=== PATIENT | female | born 1990 | race Caucasian/White ===

== ENCOUNTER 2019-05-02 13:46 | Outpatient (REF) | payer MEDICAID, SELFPAY ==
--- NOTE | 2019-05-02 11:30 | PAPFT_PTH ---
PATIENT: Raven Koehler LOC: [facility] U#:[id number] AGE/SX: 28/F ROOM: RE05/02/[address]: SABINA Holt : 1990 BED: DIS: 05/02/2019 SPEC #: [id number] RECD: 05/02/19 17:55 STATUS: ARIADNA RECrystal #: [id number] JODI: 05/02/19 11:[address]: Rosi Moreno DEPT: [facility] Cytology RECD BY: Tracie Kumar ENTERED: 05/02/19 17:55 SP TYPE: PAPFT AZUCENA DR: Gus Velasco Tissues: 1 - CX/ENDOCX FOR PAP SMEARS Procedures: PAP THIN PREP/UVM Screening HPV DNA PROBE Comments: [id number]
== END 2019-05-02 14:06 ==
LOC: LBN 13:46
PROVIDERS: PCP Internal Medicine; Visit Provider Nurse Practitioner Family
DX: Z12.4 Encounter for screening for malignant neoplasm of cervix (principal); Z11.51 Encounter for screening for human papillomavirus (HPV)
CPT/HCPCS: 88142; 87624

== ENCOUNTER 2020-09-24 12:15 | Emergency (ER) | payer MEDICAID, SELFPAY ==
[2020-09-24 12:21] VITALS: BP 139/78; PULSE 98; RESP 18; TEMP 36.2; O2SAT 98
--- NOTE | 2020-09-24 12:30 | DI.RAD_ITS ---
EXAM: XR LUMBAR SPINE COMPLETE CLINICAL HISTORY: Back Pain TECHNIQUE: COMPARISON: CR LUMBAR SPINE AP, LAT from 12/30/2014 FINDINGS: Five views were obtained. The intervertebral disc spaces are well maintained. Old defect of the ant erior superior aspect L5 is noted, no gross interval change appearance comparison with previous exami nation December 2014. There is no evidence of spondylolysis or spondylolisthesis. Note is again mad e of a mild left convex lumbar scoliosis. There are mild degenerative changes of the facet joints L4 -5 and L5-S1. There is no evidence of acute fracture. IMPRESSION: No evidence of acute fracture. RADIATION DOSE DELIVERED: Total DLP
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
[2020-09-24] MEDS: Cyclobenzaprine 10 MG TAB PO (13:05)
[2020-09-24] MEDS: Lidocaine 5% Patch 1 PATCH TP (13:06)
[2020-09-24 13:33] LABS: Bilirubin Negative (Negative); Blood Negative (Negative); Clarity Sl Cloudy (Clear); Glucose Negative (Negative); Ketones Negative (Negative); Leukocyte Esterase Negative (Negative); Nitrite Negative (Negative); Specific Gravity >= 1.030 (1.005-1.025); Urobilinogen 0.2 EU/dL (Up TO 0.2)
[2020-09-24 13:46] VITALS: BP 133/82; PULSE 74; RESP 18; O2SAT 100
--- NOTE | 2020-09-24 13:47 | NUR.NOTE ---
patient reportsn pain 8/10. back from DI Nursing Note:
[2020-09-24] MEDS: traMADol 50 MG TAB PO (14:02)
[2020-09-24 15:02] VITALS: PULSE 70; RESP 18; O2SAT 100
== END 2020-09-24 15:03 | disposition home or self-care (01) ==
PROVIDERS: Emergency Provider Registered Nurse Emergency; PCP Internal Medicine
DX: M54.5 Low back pain (principal)
CPT/HCPCS: 81025; 99283; 72110; 81003

== ENCOUNTER → 2022-03-26 00:07 | Outpatient (CLI) | payer MEDICAID, SELFPAY | PROVIDERS: PCP Internal Medicine; Visit Provider Physician Assistant ==

== ENCOUNTER 2022-11-28 18:49 | Emergency (ER) | payer MEDICAID, SELFPAY ==
--- NOTE | 2022-11-28 19:00 | RT.EKG_ITS ---
APPROVED REPORT Exam: Resting ECG Reason for Exam: chest pain Patient Location: E HR:65 bpm ECG Measurements Heart Rate 65 AXIS AR 143 P 55 QRSd 80 QRS 66 QT 380 T 60 QTc 397 Conclusion Sinus rhythm...normal P axis, V-rate 60- 99 Normal [place] Normal Electrocardiogram
[2022-11-28 19:01] VITALS: BP 119/77; PULSE 77; RESP 16; TEMP 36.4; O2SAT 100
[2022-11-28 19:20] VITALS: RESP 13
[2022-11-28 19:21] LABS: Bilirubin Small (Negative); Blood Negative (Negative); Clarity Clear (Clear); Glucose Negative (Negative); Ketones Trace mg/dL (Negative); Leukocyte Esterase Negative (Negative); Nitrite Negative (Negative); Specific Gravity >= 1.030 (1.005-1.025); Urobilinogen 0.2 EU/dL (Up TO 0.2)
[2022-11-28 19:28] LABS: Bacteria Few HPF (Negative); C & S Indicated? No; Casts 0-2 Hyaline LPF (Negative); Crystals Negative HPF (Negative); Epithelial Cells Moderate HPF (Negative); Mucus Negative (Negative); RBC Negative HPF (0-2); WBC Negative HPF (0-5)
--- NOTE | 2022-11-28 19:30 | DI.RAD_ITS ---
Exam(s) XR CHEST 2V PA LATERAL EXAM: XR CHEST 2V PA LATERAL CLINICAL HISTORY: chest pain TECHNIQUE: 2D digital imaging was performed of the chest. Two images were obtained. PA and lateral views were obtained. COMPARISON: No exams were available for comparison FINDINGS: MEDIASTINUM: Normal. HEART: Normal. PULMONARY VASCULATURE: Normal. LUNGS: Clear. PLEURAL SPACE: No pleural effusion or pneumothorax. BONE:Within normal limits for the patient's age. OTHER FINDINGS:Normal. IMPRESSION: No acute pulmonary findings. DATA REPOSITORY: RADIATION DOSE DELIVERED:
[2022-11-28 19:43] LABS: Abs Immature Grans 0.02 10^3/uL (0.0-0.06); Absolute Basophil Count 0.04 10^3/uL (0.0-0.2); Absolute Eosinophil Count 0.09 10^3/uL (0.0-0.7); Absolute Lymphocyte Count 2.32 10^3/uL (1.2-3.4); Absolute Monocyte Count 0.51 10^3/uL (0.1-0.8); Absolute Neutrophil Count 5.68 10^3/uL (1.2-6.7); Basophils % 0.5; HCT 41.5 % (36.0-46.0); HGB 13.7 g/dL (11.2-15.7); Immature Grans % 0.2; Lymphocytes % 26.8; MCV 91 fL (80-95); MPV 9.5 fL (8.0-11.0); Monocytes % 5.9; Neutrophils % 65.6; Platelet Count 215 10^3/uL (130-400); RBC 4.56 10^6/uL (3.93-5.22); RDW 12.2 % (11.7-14.6); RDW-SD 40.9 fL; WBC 8.66 10^3/uL (4.4-10.8)
[2022-11-28 20:01] LABS: ALT 21 U/L (14-59); AST 16 U/L (15-37); Albumin 4.5 g/dL (3.4-5.0); Alkaline Phosphatase 57 U/L (46-116); Anion Gap 5.5 mmol/L (3-11); BUN 16 mg/dL (7-18); Bilirubin, Total 0.5 mg/dL (0.2-1.0); CO2 29.5 mmol/L (21.0-32.0); CREATININE 0.9 mg/dL (0.55-1.02); Chloride 104 mmol/L (98-107); Estimated GFR 86.57 (mL/min/1.73m2); Glucose 110 mg/dL (74-106); Lipase 110 U/L (73-393); Potassium 3.6 mmol/L (3.5-5.1); Sodium 139 mmol/L (136-145); Total Protein 7.8 g/dL (6.4-8.2); Troponin I < 50 ng/L (<or=60)
[2022-11-28 20:12] LABS: D-Dimer 177 ng/mlFEU (<500)
[2022-11-28 20:58] VITALS: BP 105/57; PULSE 69; RESP 16; O2SAT 99
[2022-11-28 21:54] VITALS: BP 96/59; PULSE 55; RESP 16; O2SAT 97
--- NOTE | 2022-11-28 22:04 | DI.VRAD_ITS ---
PROCEDURE INFORMATION: Exam: XR Chest Exam date and time: 11/28/2022 20:23 Age: 31 years old Clinical indication: Chest wall pain; Additional info: Chest pain TECHNIQUE: Imaging protocol: Radiologic exam of the chest. Views: 2 views. COMPARISON: No relevant prior studies available. FINDINGS: Lungs: No consolidation. Pleural spaces: No pleural effusion. No pneumothorax. Heart/Mediastinum: No cardiomegaly. Bones/joints: No acute fracture. IMPRESSION: Normal. Dictated and Authenticated by: Morena Lester MD. Ordering:ADAL Hodges MD
[2022-11-28 22:07] LABS: Troponin I < 50 ng/L (<or=60)
[2022-11-28 22:28] VITALS: BP 107/61; RESP 18; TEMP 37; O2SAT 97
--- NOTE | 2022-11-30 09:50 | W.ED.GENAD ---
Discharge Plan Disposition Patient Disposition: Home Condition: Stable Discharge Details Clinical Impression: Chest pain Primary Care Provider: Gus Velasco ED Provider: Tracie Zelaya Home Meds and New Rx's Prescriptions: Continued medroxyprogesterone [Depo-Provera] 150 mg/mL syringe 150 mg IM ONCE Qty: 1 0RF medroxyprogesterone [Depo-Provera] 150 mg/mL suspension 150 mg IM Q12W Qty: 1 3RF Discharge Instructions Instructions: Chest Pain (ED) Additional Instructions: follow-up with primary care physician for follow-up next week Take ibuprofen and Tylenol as needed for pain Return earlier should you have new or worsening complaints Referrals: Gus Velasco MD [Primary Care Provider] - Discharge Data Discharge Date/Time-TO BE ENTERED AT DEPARTURE: 11/28/22 22:41 Medical Decision Making This 32-year-old female who is otherwise healthy with low risk for coronary artery disease will have a cardiac work-up to exclude any acute pathology Chest pain starting half an hour prior to arrival, will order 2 troponins, EKG, diagnostic labs Labs are consistent per patient, she is had 2 negative troponins with a heart score of 1 EKG does not show significant acute abnormality Pain-free at time of reassessment and discharge Pulmonary embolism rule out criteria negative, so will not order any additional imaging, chest x-ray per radiology interpretation my review does not show acute pathology Encouraged to follow-up with her primary care physician test negative No clinical evidence of pneumonia Return precautions reviewed and patient expressed understanding Medical Records Medical records reviewed: Yes I reviewed the patient's medical records. Lab Data Lab results reviewed: Yes I reviewed the patient's lab results. ECG Data Prior ECG tracings: available for review HPI General Date/Time Provider Initiated Documentation: 11/28/22 19:24. HPI Narrative: This otherwise healthy 32-year-old female presents with chest pain that started 30 minutes prior to arrival. States she has a history of anxiety with chest discomfort but this is slightly different. She states she felt like she might pass out. She was standing and baking a cake when her symptoms began. She states the pain is resolving. She denies any shortness of breath. Denies early cardiac family history, illicit drug use, regular alcohol consumption or chance of . She denies any exogenous hormones. She has known exacerbating or alleviating factors. She has not been ill and does not report cough or patient. Denies any sweating or nausea. Related Data Home Medications Medication Instructions Recorded Confirmed medroxyprogesterone 150 mg/mL 150 mg IM Q12W #1 mL 11/05/21 11/28/22 intramuscular suspension (Depo-Provera) Previous Rx's Medication Instructions Recorded medroxyprogesterone 150 mg/mL 150 mg IM Q12W #1 mL 11/05/21 intramuscular suspension (Depo-Provera) Allergies Allergy/AdvReac Type Severity Reaction Status Date / Time amoxicillin Allergy Intermediate Skin Rash Verified 11/28/22 19:06 Penicillins Allergy Intermediate rash with Verified 11/28/22 19:06 amoxicillin General Stated Complaint: Chest Pain CATARINO: 2 Review of Systems Narrative: Review of systems obtained x7 and negative aside from medication HPI PFSH All Active Problems Chest pain (Acute) Surveillance for Depo-Provera contraception (Acute) Contraception (Acute) Uses Depo-Provera as primary control method (Chronic) Medical History Contraception Uses Depo-Provera as primary control method Family History Brother Alcohol abuse Mother Substance abuse Alcohol abuse Father Substance abuse Diabetes Social History Smoking/Tobacco Use Status: Former Tobacco Use Smoking risk assessment performed?: Yes Alcohol Intake: former Drug use: Daily Substance use type: marijuana Current gender identity: female Do you feel safe at home: Yes Do you feel safe in your relationship?: Yes Female Reproductive History Menstrual control method: progesterone injection History History 2 Para Hx # Term Pregnancies 1 Multiple births Hx # Pregnancies Ectopic pregnancies AB induced Hx Number of Living Children AB spontaneous Exam Const General: cooperative, comfortable and no acute distress Chest Chest: normal inspection of the chest Resp Effort & Inspection: normal respiratory effort Auscultation: clear to auscultation bilaterally Cardio Rate: regular rate Rhythm: regular rhythm GI Other: No abdominal tenderness Course Vital Signs Vital signs: Vital Signs Temperature 36.4 C L 11/28/22 19:01 Pulse 77 11/28/22 19:01 Respiratory Rate 16 11/28/22 19:01 Blood Pressure 119/77 11/28/22 19:01 Pulse Oximetry 100 11/28/22 19:01 Temperature 37 C 11/28/22 22:28 Temperature Source Tympanic 11/28/22 22:28 Pulse 55 L 11/28/22 21:54 Respiratory Rate 18 11/28/22 22:28 Respiratory Effort 11/28/22 19:20 Respiratory Depth Normal 11/28/22 19:20 Respiratory Pattern Normal 11/28/22 19:20 Blood Pressure 107/61 11/28/22 22:28 Blood Pressure Position Sitting 11/28/22 19:01 Pulse Oximetry 97 11/28/22 22:28 Oxygen Delivery Method Room Air 11/28/22 22:28 Oxygen Flow Rate 0 11/28/22 22:28 Pain Level 1 11/28/22 19:20 Comment 11/28/22 21:54 Lab/Test Results Lab/Test Results: Laboratory Tests Range/Units 11/28/22 11/28/22 11/28/22 19:12 19:34 19:34 WBC (4.4-10.8) 10^3/uL 8.66 RBC (3.93-5.22) 10^6/uL 4.56 Hgb (11.2-15.7) g/dL 13.7 Hct (36.0-46.0) % 41.5 MCV (80-95) fL 91 MCH (27.0-33.0) pg 30.0 MCHC (32.0-36.0) % 33.0 RDW (11.7-14.6) % 12.2 Plt Count (130-400) 10^3/uL 215 MPV (8.0-11.0) fL 9.5 Immature Gran % 0.2 Neutrophils % 65.6 Lymphocytes % 26.8 Monocytes % 5.9 Eosinophils % 1.0 Basophils % 0.5 Nucleated RBC % (0.0-0.3) % 0.0 Absolute Neutrophils (1.2-6.7) 10^3/uL 5.68 Absolute Lymphocytes (1.2-3.4) 10^3/uL 2.32 Absolute Monocytes (0.1-0.8) 10^3/uL 0.51 Absolute Eosinophils (0.0-0.7) 10^3/uL 0.09 Absolute Basophils (0.0-0.2) 10^3/uL 0.04 D-Dimer (<500) ng/mlFEU Sodium (136-145) mmol/L 139 Potassium (3.5-5.1) mmol/L 3.6 Chloride (98-107) mmol/L 104 Carbon Dioxide (21.0-32.0) mmol/L 29.5 Anion Gap (3-11) mmol/L 5.5 BUN (7-18) mg/dL 16 Creatinine (0.55-1.02) mg/dL 0.9 Est GFR (CKD-EPI 2020) (mL/min/1.73m2) 86.57 Glucose (74-106) mg/dL 110 H Calcium (8.5-10.1) mg/dL 9.0 Total Bilirubin (0.2-1.0) mg/dL 0.5 AST (15-37) U/L 16 ALT (14-59) U/L 21 Alkaline Phosphatase (46-116) U/L 57 Troponin I (<or=60) ng/L < 50 Total Protein (6.4-8.2) g/dL 7.8 Albumin (3.4-5.0) g/dL 4.5 Lipase (73-393) U/L 110 Urine Color (Yellow) Yellow Urine Clarity (Clear) Clear Urine pH (5-8) 6.0 Ur Specific [place] (1.005-1.025) >= 1.030 H Urine Protein (Negative) mg/dL 30 H Urine Ketones (Negative) mg/dL Trace H Urine Blood (Negative) Negative Urine Nitrite (Negative) Negative Urine Bilirubin (Negative) Small H Urine Urobilinogen (Up TO 0.2) EU/dL 0.2 Ur Leukocyte Esterase (Negative) Negative Urine RBC (0-2) HPF Negative Urine WBC (0-5) HPF Negative Ur Epithelial Cells (Negative) HPF Moderate Urine Crystals (Negative) HPF Negative Urine Bacteria (Negative) HPF Few Urine Casts (Negative) LPF 0-2 Hyaline Urine Mucus (Negative) Negative Ur Culture Indicated? No Urine Glucose (Negative) mg/dL Negative Range/Units 11/28/22 11/28/22 19:34 21:42 WBC (4.4-10.8) 10^3/uL RBC (3.93-5.22) 10^6/uL Hgb (11.2-15.7) g/dL Hct (36.0-46.0) % MCV (80-95) fL MCH (27.0-33.0) pg MCHC (32.0-36.0) % RDW (11.7-14.6) % Plt Count (130-400) 10^3/uL MPV (8.0-11.0) fL Immature Gran % Neutrophils % Lymphocytes % Monocytes % Eosinophils % Basophils % Nucleated RBC % (0.0-0.3) % Absolute Neutrophils (1.2-6.7) 10^3/uL Absolute Lymphocytes (1.2-3.4) 10^3/uL Absolute Monocytes (0.1-0.8) 10^3/uL Absolute Eosinophils (0.0-0.7) 10^3/uL Absolute Basophils (0.0-0.2) 10^3/uL D-Dimer (<500) ng/mlFEU 177 Sodium (136-145) mmol/L Potassium (3.5-5.1) mmol/L Chloride (98-107) mmol/L Carbon Dioxide (21.0-32.0) mmol/L Anion Gap (3-11) mmol/L BUN (7-18) mg/dL Creatinine (0.55-1.02) mg/dL Est GFR (CKD-EPI 2020) (mL/min/1.73m2) Glucose (74-106) mg/dL Calcium (8.5-10.1) mg/dL Total Bilirubin (0.2-1.0) mg/dL AST (15-37) U/L ALT (14-59) U/L Alkaline Phosphatase (46-116) U/L Troponin I (<or=60) ng/L < 50 Total Protein (6.4-8.2) g/dL Albumin (3.4-5.0) g/dL Lipase (73-393) U/L Urine Color (Yellow) Urine Clarity (Clear) Urine pH (5-8) Ur Specific [place] (1.005-1.025) Urine Protein (Negative) mg/dL Urine Ketones (Negative) mg/dL Urine Blood (Negative) Urine Nitrite (Negative) Urine Bilirubin (Negative) Urine Urobilinogen (Up TO 0.2) EU/dL Ur Leukocyte Esterase (Negative) Urine RBC (0-2) HPF Urine WBC (0-5) HPF Ur Epithelial Cells (Negative) HPF Urine Crystals (Negative) HPF Urine Bacteria (Negative) HPF Urine Casts (Negative) LPF Urine Mucus (Negative) Ur Culture Indicated? Urine Glucose (Negative) mg/dL POC- Test(urine) Negative
== END 2022-11-28 22:41 | disposition home or self-care (01) ==
PROVIDERS: Emergency Provider Physician Assistant; PCP Internal Medicine
DX: R07.9 Chest pain, unspecified (principal)
CPT/HCPCS: 36415; 80053; 81025; 83690; 93005; 99284; 71046; 81003; 81015; 84484; 85025; 85379; 93010; 99285

== ENCOUNTER 2023-01-15 01:25 | Outpatient (CLI) | payer MEDICAID, SELFPAY ==
--- NOTE | 2023-01-15 14:25 | DI.MRI_ITS ---
Exam(s) MR LUMBAR SPINE WO EXAM: MR LUMBAR SPINE WO CLINICAL HISTORY: LUMBAR DISC HERNIATION M51.26 LOW BACK PAIN M54.59. TECHNIQUE: Multiplanar multisequence MRI of the Lumbar spine was performed. COMPARISON: MR MRI - LUMBAR SPINE WO CONTRAST from 03/16/2009 CR XR LUMBAR SPINE COMPLETE from 09/24/2020 FINDINGS: The examination is limited due to patient motion artifact. Bones: The last intervertebral disc space is designated the L5/S1 level for the numbering purpose of this examination. The vertebral body heights are well maintained. Alignment is satisfactory. The si gnal characteristics are unremarkable. Cord: The conus tip ends at the L1-L2 level. It is of normal size and signal intensity. T12-L1: No disc herniations or bulges are present. No central spinal canal or neural foraminal stenos is. L1-2: No disc herniations or bulges are present. No central spinal canal or neural foraminal stenosis . L2-3: No disc herniations or bulges are present. No central spinal canal or neural foraminal stenosis . L3-4: No disc herniations or bulges are present. No central spinal canal or neural foraminal stenosis . L4-5: There is a diffuse disc bulge. There are hypertrophic changes of the facets and ligamentum fla vum. No significant central spinal canal stenosis is seen. There is mild narrowing of the neural fo ramen bilaterally. L5-S1: There is a diffuse disc bulge. Degenerative changes of the facets and ligamentum flavum are p resent. There is mild to moderate central spinal canal stenosis. There is mild bilateral neural for aminal stenosis. Soft tissues: The visualized SI joints and sacrum are well maintained. The paraspinal soft tissues ar e unremarkable. IMPRESSION: 1. The examination is limited by patient motion artifact. 2. Degenerative changes at multiple levels of the lumbar spine. 3. The findings are most marked at L5-S1 where there is [id number] central spinal canal stenosi s and bilateral mild neural foraminal stenosis. DATA REPOSITORY:
== END 2023-01-15 01:45 ==
PROVIDERS: PCP Internal Medicine; Visit Provider Nurse Practitioner Family
DX: M51.26 Other intervertebral disc displacement, lumbar region (principal); M54.59 Other low back pain; M51.27 Other intervertebral disc displacement, lumbosacral region; M48.07 Spinal stenosis, lumbosacral region; M47.817 Spondylosis without myelopathy or radiculopathy, lumbosacral region
CPT/HCPCS: 72148

== ENCOUNTER 2023-03-05 18:17 | Outpatient (REF) | payer MEDICAID, SELFPAY ==
[2023-03-05 16:33] LABS: Vitamin D 25 Total 22.2 ng/mL (30-100)
[2023-03-05 17:42] LABS: TSH (W/Ref FT4) 1.02 uIU/mL (0.36-3.74); Vitamin B12 282 pg/mL (193-986)
== END 2023-03-05 18:18 | disposition home or self-care (01) ==
LOC: NCHCN 18:17
PROVIDERS: PCP Internal Medicine; Visit Provider Registered Nurse
DX: F41.8 Other specified anxiety disorders (principal); E55.9 Vitamin D deficiency, unspecified
CPT/HCPCS: 82306; 82607; 84443

== ENCOUNTER 2023-05-13 15:21 | Outpatient (REF) | payer MEDICAID, SELFPAY ==
[2023-05-13 17:10] LABS: Vitamin D 25 Total 37.6 ng/mL (30-100)
[2023-05-13 17:11] LABS: HCG Quant, Pregnancy 28319 mIU/mL (1-3)
[2023-05-13 17:14] LABS: Vitamin B12 308 pg/mL (193-986)
== END 2023-05-13 15:22 | disposition home or self-care (01) ==
LOC: NCHCN 15:21
PROVIDERS: Registered Nurse; PCP Internal Medicine; Visit Provider Nurse Practitioner Family
DX: F41.9 Anxiety disorder, unspecified (principal); N91.2 Amenorrhea, unspecified
CPT/HCPCS: 82306; 82607; 84443; 84702

== ENCOUNTER 2023-06-26 02:19 | Outpatient (CLI) | payer MEDICAID, SELFPAY ==
[2023-06-26 12:25] LABS: Panorama Kit Sent via Fed Ex
[2023-06-26 12:32] LABS: Abs Immature Grans 0.04 10^3/uL (0.0-0.06); Absolute Basophil Count 0.05 10^3/uL (0.0-0.2); Absolute Eosinophil Count 0.05 10^3/uL (0.0-0.7); Absolute Lymphocyte Count 1.58 10^3/uL (1.2-3.4); Absolute Monocyte Count 0.52 10^3/uL (0.1-0.8); Absolute Neutrophil Count 6.51 10^3/uL (1.2-6.7); Basophils % 0.6; Eosinophils % 0.6; HCT 35.2 % (36.0-46.0); HGB 12.3 g/dL (11.2-15.7); Immature Grans % 0.5; Lymphocytes % 18.1; MCH 31.6 pg (27.0-33.0); MCHC 34.9 % (32.0-36.0); MCV 91 fL (80-95); MPV 9.2 fL (8.0-11.0); Monocytes % 5.9; Neutrophils % 74.3; Platelet Count 240 10^3/uL (130-400); RBC 3.89 10^6/uL (3.93-5.22); RDW 13.9 % (11.7-14.6); RDW-SD 46.2 fL; WBC 8.75 10^3/uL (4.4-10.8)
[2023-06-26 14:06] LABS: TSH (W/Ref FT4) 2.15 uIU/mL (0.36-3.74)
[2023-06-28 10:35] LABS: HIV-1/2 Ag & Ab Screen Negative (Negative)
[2023-06-29 09:39] LABS: Hepatitis B Surface Ag Negative (Negative)
[2023-06-29 10:02] LABS: Hepatitis C Ab w Rflx HCV PCR Negative (Negative)
[2023-06-29 11:13] LABS: Varicella IgG Antibody Positive (See Note)
[2023-06-29 11:16] LABS: Rubella IgG Ab (UVM) Positive (See Note)
[2023-06-29 19:25] LABS: Syphilis IgG w/Reflex Nonreactive (Nonreactive)
== END 2023-06-26 02:20 | disposition home or self-care (01) ==
LOC: LBO 02:19
PROVIDERS: PCP Internal Medicine; Visit Provider Advanced Practice Midwife
DX: Z34.91 Encounter for supervision of normal pregnancy, unspecified, first trimester (principal); Z36.89 Encounter for other specified antenatal screening; Z3A.11 11 weeks gestation of pregnancy
CPT/HCPCS: 36415; 86787; 86803; 86850; 86900; 86901; 87340; 87389; 84443; 85025; 86762; 86780

== ENCOUNTER 2023-06-26 13:53 | Outpatient (REF) | payer MEDICAID, SELFPAY ==
--- NOTE | 2023-06-26 12:00 | PAPFT_PTH ---
PATIENT: Raven Koehler LOC: [facility] U#:[id number] AGE/SX: 32/F ROOM: RE06/26/[address]: Jeanie Siu : 1990 BED: DIS: 06/26/2023 SPEC #: [id number] RECD: 06/26/23 17:43 STATUS: ARIADNA RECrystal #: [id number] JODI: 06/26/23 12:[address]: Jeanie Siu DEPT: [facility] Cytology RECD BY: Tracie Kumar ENTERED: 06/26/23 17:43 SP TYPE: PAPFT OTHR DR: Gus Velasco Tissues: 1 - CX/ENDOCX FOR PAP SMEARS Procedures: PAP THIN PREP/UVM Screening HPV DNA PROBE Comments: [id number]
[2023-06-26 15:07] LABS: *AMPHETAMINES SCREEN URINE Negative (Negative); *BARBITURATES SCREEN URINE Negative (Negative); *BENZODIAZEPINES SCREEN URINE Negative (Negative); Cannabinoids THC Positive (Negative); Cocaine Screen,Urine Negative (Negative); METHADONE URINE SCREEN Negative (Negative); OPIATES URINE SCREEN Negative (Negative)
[2023-06-26 15:09] LABS: Tricyclic Antidepressants Negative (Negative)
[2023-06-27 13:30] LABS: Chlamydia Result Negative (Negative); GC Result Negative (Negative)
[2023-07-02 15:08] LABS: Buprenorphine Negative ng/mL (Cutoff: 5.0); Norbuprenorphine Negative ng/mL (Cutoff: 2.5)
== END 2023-06-26 13:54 | disposition home or self-care (01) ==
LOC: LBN 13:53
PROVIDERS: PCP Internal Medicine; Visit Provider Advanced Practice Midwife
DX: Z34.91 Encounter for supervision of normal pregnancy, unspecified, first trimester (principal); Z11.3 Encounter for screening for infections with a predominantly sexual mode of transmission; Z12.4 Encounter for screening for malignant neoplasm of cervix; Z3A.11 11 weeks gestation of pregnancy; Z11.51 Encounter for screening for human papillomavirus (HPV)
CPT/HCPCS: 80307; 80348; 87491; 87591; 88142; 87086; 87624

== ENCOUNTER 2023-07-24 02:05 | Outpatient (CLI) | payer MEDICAID, SELFPAY ==
[2023-07-27 12:22] LABS: AFP 23.2 ng/mL; Cigarette smoking status non-Smoker; GA used in risk estimate Scan estimate; IVF Pregnancy No; Initial or repeat testing Initial testing; Insulin dependent diabetes No; Maternal Weight 162 lbs; Number of Fetuses 1; Prev Pregnancy w/NTD No; RECOMMENDED FOLLOW UP None.; Results Summary Normal risk
== END 2023-07-24 02:06 | disposition home or self-care (01) ==
LOC: LBO 02:05
PROVIDERS: PCP Internal Medicine; Visit Provider Advanced Practice Midwife
DX: Z34.92 Encounter for supervision of normal pregnancy, unspecified, second trimester (principal); Z3A.15 15 weeks gestation of pregnancy; Z36.89 Encounter for other specified antenatal screening
CPT/HCPCS: 36415; 82105

== ENCOUNTER 2023-10-16 01:53 | Outpatient (CLI) | payer MEDICAID, SELFPAY ==
[2023-10-16 09:58] LABS: HCT 32.9 % (36.0-46.0); HGB 11.2 g/dL (11.2-15.7); MCH 31.9 pg (27.0-33.0); MCV 94 fL (80-95); MPV 9.3 fL (8.0-11.0); Platelet Count 227 10^3/uL (130-400); RBC 3.51 10^6/uL (3.93-5.22); RDW-SD 44.4 fL; WBC 8.63 10^3/uL (4.4-10.8)
[2023-10-16 10:13] LABS: Glucose,1 Hr (Glucola) 84 mg/dL (80-140)
== END 2023-10-16 01:54 | disposition home or self-care (01) ==
LOC: LBO 01:54
PROVIDERS: PCP Internal Medicine; Visit Provider Advanced Practice Midwife
DX: Z34.93 Encounter for supervision of normal pregnancy, unspecified, third trimester (principal)
CPT/HCPCS: 36415; 82950; 85027

== ENCOUNTER 2023-10-16 08:52 | Outpatient (REF) | payer MEDICAID, SELFPAY ==
[2023-10-16 11:20] LABS: *AMPHETAMINES SCREEN URINE Negative (Negative); *BARBITURATES SCREEN URINE Negative (Negative); *BENZODIAZEPINES SCREEN URINE Negative (Negative); Cannabinoids THC Negative (Negative); Cocaine Screen,Urine Negative (Negative); METHADONE URINE SCREEN Negative (Negative); OPIATES URINE SCREEN Negative (Negative)
[2023-10-16 11:21] LABS: Tricyclic Antidepressants Negative (Negative)
== END 2023-10-16 08:53 | disposition home or self-care (01) ==
LOC: LBN 08:52
PROVIDERS: PCP Internal Medicine; Visit Provider Advanced Practice Midwife
DX: F12.90 Cannabis use, unspecified, uncomplicated (principal); O99.323 Drug use complicating pregnancy, third trimester
CPT/HCPCS: 80307

== ENCOUNTER → 2023-10-30 00:19 | Outpatient (CLI) | payer MEDICAID, SELFPAY ==
--- NOTE | 2023-10-30 08:00 | DI.US_ITS ---
Exam(s) US OB SIM WEIGHT EXAM: US OB SIM WEIGHT CLINICAL HISTORY: interval growth. TECHNIQUE: Transabdominal and transvaginal obstetrical ultrasound performed. COMPARISON: US US OB DETAILED MORPHOLOGY from 08/27/2023 FINDINGS:: Number of fetuses: One. position: Vertex. Placental location: Anterior no evidence of previa. BIOMETRIC DATA: BPD: 81mm = 32+3 weeks HC: 295mm = 32+4 weeks AC: 267mm = 30+5 weeks FL: 60 mm = 31+2 weeks EFW: Is 1729 Gms = 84% Composite Age: 31+5 weeks RAS: 27 December 2023 Heart Rate: 161BPM Amniotic fluid index: 14.3 cm. Amount of fluid is visually within normal limits. Transvaginal imaging performed for evaluation of cervical length. Cervical length measured 2.6 cm. IMPRESSION: size and weight are within the expected range. Stable cervical length 2.6 cm DATA REPOSITORY:
== END ==
PROVIDERS: PCP Internal Medicine; Visit Provider Advanced Practice Midwife
DX: Z3A.32 32 weeks gestation of pregnancy; O44.43 Low lying placenta NOS or without hemorrhage, third trimester
CPT/HCPCS: 76816

== ENCOUNTER 2023-12-15 11:43 | Outpatient (REF) | payer MEDICAID, SELFPAY ==
[2023-12-15 15:35] LABS: COMMENT (LAB VIEW ONLY) 169.02 mg/dL; PROTEIN 26.2 mg/dL; Prot/Crea Ur Ratio 0.15
[2023-12-15 15:42] LABS: *AMPHETAMINES SCREEN URINE Negative (Negative); *BARBITURATES SCREEN URINE Negative (Negative); *BENZODIAZEPINES SCREEN URINE Negative (Negative); Cannabinoids THC Negative (Negative); Cocaine Screen,Urine Negative (Negative); METHADONE URINE SCREEN Negative (Negative); OPIATES URINE SCREEN Negative (Negative)
[2023-12-15 15:43] LABS: Tricyclic Antidepressants Negative (Negative)
[2023-12-18 11:06] LABS: Misc Referral (UVM) See Comments
[2023-12-22 11:39] LABS: Buprenorphine Negative ng/mL (Cutoff: 5.0)
== END 2023-12-15 11:44 | disposition home or self-care (01) ==
LOC: LBN 11:43
PROVIDERS: Visit Provider Advanced Practice Midwife
DX: F12.90 Cannabis use, unspecified, uncomplicated (principal); Z34.93 Encounter for supervision of normal pregnancy, unspecified, third trimester
CPT/HCPCS: 80307; 80348; 80354; 82565; 84156; 87081

== ENCOUNTER 2023-12-20 09:09 | Outpatient (CLI) | payer MEDICAID, SELFPAY ==
[2023-12-20 09:26] VITALS: BP 130/81; PULSE 78; TEMP 36.8
[2023-12-20 09:30] VITALS: BP 130/81; PULSE 78
--- NOTE | 2023-12-21 07:31 | W.OBNST ---
Date of service: 12/20/23 Time of Service: 11:00 NST Evaluation Reason for NST Reasons for Nonstress Test: OTHER, SEE COMMENT Reason for NST Other: Rule out SROM Gestational Age Gestational Age in Weeks and Days: 37 Weeks and 1Days Test and Monitor Explained Test/Monitor Explained: Test Explained and Monitor Explained Vital Signs Blood Pressure: 130/81 Pulse: 78 Temperature: 98.2 F Urine Results Urine Protein: Negative Urine Ketones: Negative Urine Glucose: Negative Urine Blood: Negative NST Information Date on Monitor: 12/20/23 Time on Monitor: 09:24 Date off Monitor: 12/20/23 Time off Monitor: 09:46 Total Time on Monitor: 22 NST Interventions: PO Hydration NST Evaluation Patient States Movement: Present FHR Baseline: 145 Variability: Moderate 6-25 bpm Accelerations: 15x15 Decelerations: None NST Results: Reactive Note Ultrasound Done: N/A. NST Note Note: SSE performed, neg pooling, neg ferns Cvx 3/80% soft, posterior, vtx -2 Discharged to home NST Reviewed and Verified by: Renetta Bolton
[2023-12-21 07:32] VITALS: BP 130/81; PULSE 78; TEMP 36.8
[2023-12-21 16:20] VITALS: BP 104/61; PULSE 112
== END 2023-12-20 10:03 | disposition home or self-care (01) ==
LOC: BCD 09:10 → OBS 09:19
PROVIDERS: Visit Provider Advanced Practice Midwife
DX: O47.1 False labor at or after 37 completed weeks of gestation (principal); Z3A.37 37 weeks gestation of pregnancy
CPT/HCPCS: 59025

== ENCOUNTER 2023-12-25 00:19 | Inpatient (IN) | payer MEDICAID, SELFPAY ==
[2023-12-25] VITALS (18 sets, daily range): BP systolic 108–148; BP diastolic 60–83; PULSE 62–101; RESP 15–17; TEMP 36.5–37.1; O2SAT 97–99
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
[2023-12-25 01:46] LABS: HCT 30.3 % (36.0-46.0); HGB 10.6 g/dL (11.2-15.7); MCH 31.8 pg (27.0-33.0); MCV 91 fL (80-95); MPV 9.4 fL (8.0-11.0); Platelet Count 244 10^3/uL (130-400); RBC 3.33 10^6/uL (3.93-5.22); RDW 12.7 % (11.7-14.6); RDW-SD 41.6 fL; WBC 11.21 10^3/uL (4.4-10.8)
[2023-12-25] MEDS: Oxytocin 10 UNITS/ML VIAL IM (03:21)
--- NOTE | 2023-12-25 03:40 | OBVDS_ITS ---
Date of service: 12/25/23 Time of Service: 03:40 OB Labor/ Delivery Information Baby A Delivery Delivery Method: Spontaneaous Presentation: Cephalic Cephalic Position: Vertex Vertex Position: Left Occipital Anterior Cord Description-Baby A: 3 Vessels Amniotic Fluid: Clear Estimated Blood Loss: 250 ml Delivery Outcome: Liveborn Infant Transferred: Remains with Mother Note: Pt labored using nitrous effectively, intermittent doptone FHT checks per guidelines with reassuring findings, SROM of clear fluid, involuntary urges to bear down soon followed while pt lying RLP on the bed. She turned to her left side and 2nd stage huddle was completed, shortly thereafter of a vigorous female over intact perineum, shoulders delivered with ease, bulb suction on field until pt was ready to hold her baby, infant to chest for S2S, 10 units pitocin given IM, cord ceased pulsations and was clamped then cut by FOB @ 6 minutes, cord blood collected, Ye placenta delivered intact with 3 VC, fundus firm below umbilicus, vulval and vaginal inspection revealed no lacerations, vaginal sweep for no clots and minimal lochia. Strong family bonding observed, apgars 9/9, weight 3445 gms. Providers Nurse Percussion Teacher: Renetta Bolton Nurse: Halley Bolton Nurse: Celi Ventura Labor/Delivery Information Number of Babies in Womb: 1 Steroids Given: None Reason Steroids Not Administered: N/A Group Beta Strep: Negative Rubella Status: Immune Blood Type: O+ Varicella Immunity: Immune Shoulder Dystocia: No Stages of Labor Onset of Labor Date: 12/24/23 Onset of Labor Time: 22:15 ROM Baby A: 12/25/23 ROM Baby A: 02:00 ROM Total Time- Baby A: [id number] Delivery Date-Baby A: 12/25/23 Delivery Time-Baby A: 03:19 Placenta Delivery Date-Baby A: 12/25/23 Placenta Delivery Time-Baby A: 03:29 Labor-Stage 3 Duration: 10 minutes Total Length of Labor-Baby A: 5 hours and 4 minutes Placenta Cultured: No Placenta Status: Delivered Baby A Infant Gender: Female Gestational Status: Early Term (37-38.6 wks) Gestational Age in Weeks/Days: 37 Weeks and 6 Days weight: 7 lb 9.519 oz Weight Comment: 3445 gms Score-1 Minute Interval(Baby A) Heart Rate-1 minute: 100 BPM or Greater Respiratory Effort- 1 minute: Spontaneous/Strong Cry Muscle Tone-1 minute: Active Movement Reflex Response-1 minute: Prompt Response Color-1 minute: Bluish Hands or Feet Total Score-1 minute: 9 Score-5 Minute Interval(Baby A) Heart Rate- 5 minute: 100 BPM or Greater Respiratory Effort-5 minute: Spontaneous/Strong Cry Muscle Tone-5 minute: Active Movement Reflex Response-5 minute: Prompt Response Color-5 minute: Bluish Hands or Feet Total Score- 5 minute: 9
[2023-12-25] MEDS: Acetaminophen 325 MG TAB 650 MG PO ×4 (04:43→21:15)
[2023-12-25] MEDS: Hamamelis Leaf/Glycerin 100 EACH BOX PR (04:43)
[2023-12-25] MEDS: Ibuprofen 600 MG TAB PO ×3 (04:43→21:15)
[2023-12-25] MEDS: Dibucaine 1% 28 GM TUBE TP (04:44)
[2023-12-25] MEDS: Docusate Sodium 100 MG CAP PO (08:04)
[2023-12-25] MEDS: oxyCODONE 5 MG TAB PO ×3 (08:13→21:15)
[2023-12-26] MEDS: Acetaminophen 325 MG TAB 650 MG PO (06:58)
[2023-12-26] MEDS: oxyCODONE 5 MG TAB PO (06:58)
[2023-12-26] MEDS: Ibuprofen 600 MG TAB PO (06:59)
[2023-12-26 08:05] VITALS: BP 126/78; PULSE 84; RESP 15; TEMP 36.6; O2SAT 100
--- NOTE | 2023-12-26 09:49 | W.PM.OBDISCH ---
Date of service: 12/26/23 Time of Service: 09:49 DS: Diagnosis Discharge Diagnosis (1) care following vaginal delivery: Status: Acute Asessment and Plan: 1. Normal labor, vaginal delivery and course to date. 2. Reviewed PP warning signs and when/how to call CNM ribbon cleaner. 3. Discussed PP depression and will give educational information 4. Planning Depo Provera for contraception, will plan at 4-6 weeks PP 5. Will call to make 2 and 6 week PP visits. (2) Lactating mother: Status: Acute Asessment and Plan: 1. Breast feeding initiated, some right sided nipple tenderness will see LC prior to discharge 2. Reviewed signs of mastitis and when to call. 3. RTO 2 and 6 weeks PP and keep pediatric appointments as scheduled. Discharge Plan Disposition Patient Disposition: Home Condition: Good Discharge Details Reason For Visit: Term Labor Admit Date/Time: 12/25/23 00:19 Admit Provider: Renetta Bolton Attending Provider: Renetta Bolton Primary Care Provider: Unknown,Unknown Hospital Course Hospital Course: Normal labor, vaginal delivery and course. Breast feeding well. Planning Depo Provera for control. Home Meds and New Rx's Prescriptions: New ibuprofen 600 mg Tablet 600 mg PO Q6H PRN PRNQty: 60 0RF Continued Classic 28 mg iron- 800 mcg tablet PO QDAY Discharge Instructions Instructions: Ibuprofen (By mouth), Medroxyprogesterone (By injection), Depression (GEN) Stand Alone Forms: BC Instructions, BC Post Vaginal Deliver Activity:: Activity as Tolerated Equipment/Supplies:: No Equipment Needed Diet:: As Tolerated Discharge Orders Discharge Orders: Discharge Order (Routine); Ordered 12/26/23 Ordered By: Jeanie Weinstein OB:DS Summary Summary Vaginal Delivery Method: Spontaneaous Laceration Description: None Contraception Discussed Contraception Discussed: Yes Contraceptive Plan: Medroxyprogesterone (4-6 weeks PP), Infant Gender-Baby A: Female weight: 7 lb 9.519 oz Disposition of Baby A: Home Status at Discharge Functional status at discharge: independent ambulation Overall status at discharge: patient is back to baseline Mental Status: mental status grossly normal Speech and Movement: speech and movement normal Mood: congruent mood Affect: normal affect Time Spent with Patient providing and/or coordinating discharge services: Less than 30 minutes Quality:SDCA Health Related Social Needs: Health related social needs details none Health related social needs details: none Referrals and interventions: none Exam Physical Exam Vital signs: Temp Pulse Resp BP Pulse Ox 98.8 F 73 17 121/61 99 12/25/23 14:52 12/25/23 23:46 12/25/23 23:46 12/25/23 23:46 12/25/23 23:46 Vital Signs Reviewed: Yes Constitutional Constitutional: no acute distress, average body habitus and cooperative HEENT Exam HEENT Exam: Normal Neck Exam Neck Exam: Normal (normal visual inspection) Respiratory Exam Respiratory Exam: Normal Cardiovascular Exam Cardiovascular Exam: Normal Abdominal Exam Abdomen: Other (normal exam) Fundal Exam Fundus: Below Umbilicus and Firm Comment: small lochia noted. KH Rectal Exam Rectal Exam: Not Done Exam Perineum: Intact and Normal Extremities Exam Extremity Exam: Normal (denies calf tenderness) and Full ROM Back/Spine/Pelvis Exam Back Exam: Normal Skin Exam Skin Exam: Normal Neurological Exam Neurological Exam: Normal Psychiatric Exam Psychiatric Exam: Normal PFSH All Active Problems Lactating mother (Acute) care following vaginal delivery (Acute) Depression (Chronic) Anxiety (Chronic) Herniated lumbar intervertebral disc (Acute) L5-S1 Advanced maternal age (AMA) in (Acute) Chronic back pain (Acute) Medical History 37 weeks gestation of Marijuana smoker Chronic pain Short cervical length during Low lying placenta nos or without hemorrhage, second trimester Surveillance for Depo-Provera contraception Contraception Uses Depo-Provera as primary control method History of delivery Family History Brother Alcohol abuse Mother Substance abuse Alcohol abuse Father Substance abuse Diabetes Stroke Paternal Grandmother Stroke Paternal Aunt No problems noted. Paternal Grandfather Heart disease congestive heart failure Social History Smoking/Tobacco Use Status: Former Tobacco Use Smoking risk assessment performed?: Yes Alcohol Intake: former Drug use: Daily Substance use type: marijuana Details: none Housing: house Current gender identity: female Do you feel safe at home: Yes Do you feel safe in your relationship?: Yes Additional Social history: none Female Reproductive History Menstrual control method: progesterone injection History History 2 Para 1 Hx # Term Pregnancies 0 Multiple births 0 Hx # Pregnancies 1 Ectopic pregnancies 0 AB induced 0 Hx Number of Living Children 1 AB spontaneous 0 Past Pregnancies Del. Date GA/Weeks # Preg Succ Route Wgt Sex Labor Lgth Anesthesia Location Prov Complic 10/19/16 31 Yes vaginal 4 lb 8 oz Male 5 hours local [facility] [place] Delivery Date: 10/19/16 Last Updated by: Jeanie Siu CNM PPROM at 31 weeks 5 days, Roberto Carlos freitas DS: Data Vitals/I&O Vitals and I&O: Vital Signs Temperature 98.8 F 12/25/23 14:52 Temperature Source Tympanic 12/25/23 14:52 Pulse 73 12/25/23 23:46 Pulse Rhythm Regular 12/25/23 21:46 Respiratory Rate 17 12/25/23 23:46 Respiratory Depth Normal 12/25/23 21:46 Blood Pressure 121/61 12/25/23 23:46 Blood Pressure Mean 81 12/25/23 23:46 Pulse Oximetry 99 12/25/23 23:46 Oxygen Delivery Method Room Air 12/25/23 00:57 Oxygen Flow Rate 0 12/25/23 00:57 Pain Level 6 12/25/23 14:42 Comment Patient states that she is in 7/10 pain while . RN and CNM aware. 12/25/23 07:30 Intake & Output 12/25/23 12/25/23 12/26/23 11:59 23:59 11:59 Intake Total 360 / 360 Output Total 1500 / 2400 900 / 2400 Balance -1140 / -2040 -900 / -2040 Weight 201 lb Intake: Oral 360 / 360 Output: Urine 1500 / 2400 900 / 2400 Other: Urine Color Yellow Yellow Bright Red Comment Patient up to toilet. Voiding Methods Toilet
== END 2023-12-26 14:35 | disposition home or self-care (01) | DRG 807 ==
PROVIDERS: Admitting Provider Advanced Practice Midwife; Visit Provider Advanced Practice Midwife
DX: O75.89 Other specified complications of labor and delivery (principal); Z37.0 Single live birth; O99.324 Drug use complicating childbirth; Z3A.37 37 weeks gestation of pregnancy; G89.29 Other chronic pain; M54.9 Dorsalgia, unspecified; M51.27 Other intervertebral disc displacement, lumbosacral region; O99.344 Other mental disorders complicating childbirth; F41.8 Other specified anxiety disorders; F12.91 Cannabis use, unspecified, in remission
CPT/HCPCS: 36415; 85027; 86850; 86900; 86901; J2590

== ENCOUNTER 2024-02-14 07:29 | Emergency (ER) | payer MEDICAID, SELFPAY ==
[2024-02-14 07:34] VITALS: BP 118/81; PULSE 116; RESP 16; TEMP 37.1; O2SAT 95
[2024-02-14 07:40] VITALS: BP 118/81; PULSE 116; RESP 16; TEMP 37.1; O2SAT 95
--- NOTE | 2024-02-14 07:43 | W.ED.GENAD ---
Discharge Plan Disposition Patient Disposition: Home Discharge Details Clinical Impression: Pharyngitis Primary Care Provider: Unknown,Unknown ED Provider: Julio Henriquez Home Meds and New Rx's Prescriptions: Continued dextroamphetamine-amphetamine [Adderall] 20 mg tablet 20 mg PO DAILY oxycodone 10 mg tablet 10 mg PO ONCE PRN ibuprofen 600 mg Tablet 600 mg PO Q6H PRN PRNQty: 60 0RF Discharge Instructions Instructions: Pharyngitis (ED) Additional Instructions: You are seen in the emergency department for your sore throat. Please make sure you stay hydrated. Please return to the emergency department if you develop nausea or vomiting or do not urinate at least once every 8 hours while awake. Please follow-up as needed with your primary care provider next week. HPI General Date/Time Provider Initiated Documentation: 02/14/24 07:42. HPI Narrative: MDM This is an overall very well-appearing normothermic and mildly tachycardic 33-year-old recently female with pharyngitis reassuring against dangerous etiologies based on history and physical exam. Patient did have a strep swab performed by nursing which fortunately was negative. Given her low Centor score no indication for strep swab. I considered COVID however in the absence of fevers and cough I did not COVID swab. Good range of motion in neck so doubt retropharyngeal abscess. Uvula midline so doubt peritonsillar abscess. No nuchal rigidity to suggest meningitis. No cough nor shortness of breath to suggest pneumonia. No chest pain to suggest PE. I also considered spontaneous coronary artery dissection given the patient's status however she denies chest pain and her tachycardia resolved without intervention so I did not obtain ECG nor check a troponin. Nontoxic-appearing so doubt bacterial tracheitis. Handling secretions so doubt epiglottitis. Patient and I discussed return to the ED for decreased urine output only specifically discussed return to the ED for less than 1 episode of urination every 8 hours while awake. We also discussed return to the ED for any fevers or any headache. Given her reassuring blood pressure and lack of headache I was not concerned for preeclampsia. Patient was discharged with empiric trial of expectant outpatient management. Patient was offered acetaminophen but declined. HPI This is a 33-year-old recently female arrived to the emergency department with her son in the setting of sore throat. Patient's son developed a sore throat yesterday evening. Patient reports a scratchy throat and is concerned that she may also have strep as her son had strep last month. She is due to [place]. She has no fevers no chest pain no shortness of breath. No vomiting. No dysuria nor frequency. No headache. She has been urinating normally. She has no abdominal pain. She is no longer breast-feeding. Exam General: Well-appearing in no acute distress speaking in complete sentences. Head: Normocephalic, atraumatic. Eye: Extraocular eye movements intact. No conjunctival injection. No scleral icterus. Ear, nose, mouth, throat: Grossly normal inspection. Normal voice, handling secretions normally. Uvula midline. No significant posterior oropharynx erythema. Good range of motion in neck. No cervical lymphadenopathy. Neck: Trachea midline. Cardiovascular: Well-perfused distal extremities. Respiratory: Nonlabored respiration. Gastrointestinal: Nondistended abdomen. Musculoskeletal: No edema. Moving all 4 extremities spontaneously. Skin: Normal for age and race, grossly normal temperature and turgor. No acute rash. Neurologic: Alert and appropriate, no apparent acute deficits. Psychiatric: Mood and manner are appropriate. Grooming and personal hygiene are appropriate. Related Data Home Medications Medication Instructions Recorded Confirmed ibuprofen 600 mg tablet 600 mg PO Q6H PRN PRN #60 tabs 12/26/23 02/14/24 dextroamphetamine-amphetamine 20 20 mg PO DAILY 02/14/24 02/14/24 mg tablet (Adderall) oxycodone 10 mg tablet 10 mg PO ONCE PRN 02/14/24 02/14/24 Previous Rx's Medication Instructions Recorded ibuprofen 600 mg tablet 600 mg PO Q6H PRN PRN #60 tabs 12/26/23 Allergies Allergy/AdvReac Type Severity Reaction Status Date / Time amoxicillin Allergy Intermediate Skin Rash Verified 02/14/24 07:41 Penicillins Allergy Intermediate rash with Verified 02/14/24 07:41 amoxicillin General Stated Complaint: Sorethroat CATARINO: 4 Course Vital Signs Vital signs: Vital Signs Temperature 37.1 C 02/14/24 07:34 Pulse 116 H 02/14/24 07:34 Respiratory Rate 16 02/14/24 07:34 Blood Pressure 118/81 02/14/24 07:34 Pulse Oximetry 95 02/14/24 07:34 Temperature 37.1 C 02/14/24 07:40 Temperature Source Skin 02/14/24 07:40 Pulse 116 H 02/14/24 07:40 Respiratory Rate 16 02/14/24 07:40 Respiratory Effort Normal 02/14/24 07:40 Blood Pressure 118/81 02/14/24 07:40 Blood Pressure Position Sitting 02/14/24 07:40 Pulse Oximetry 95 02/14/24 07:40 Oxygen Delivery Method Room Air 02/14/24 07:40 Oxygen Flow Rate 0 02/14/24 07:40 Pain Level 0 02/14/24 07:40 Medical Decision Making Quality:SDOH Health Related Social Needs: Health related social needs details none PFSH All Active Problems (Updated 02/14/24 @ 08:10 by Julio Henriquez MD) Pharyngitis (Acute) Lactating mother (Acute) care following vaginal delivery (Acute) Depression (Chronic) Anxiety (Chronic) Herniated lumbar intervertebral disc (Acute) L5-S1 Advanced maternal age (AMA) in (Acute) Chronic back pain (Acute) Medical History 37 weeks gestation of Marijuana smoker Chronic pain Short cervical length during Low lying placenta nos or without hemorrhage, second trimester Surveillance for Depo-Provera contraception Contraception Uses Depo-Provera as primary control method History of delivery Family History Brother Alcohol abuse Mother Substance abuse Alcohol abuse Father Substance abuse Diabetes Stroke Paternal Grandmother Stroke Paternal Aunt No problems noted. Paternal Grandfather Heart disease congestive heart failure Social History Smoking/Tobacco Use Status: Former Tobacco Use Smoking risk assessment performed?: Yes Alcohol Intake: former Drug use: Daily Substance use type: marijuana Details: none Housing: house Current gender identity: female Do you feel safe at home: Yes Do you feel safe in your relationship?: Yes Additional Social history: none Female Reproductive History Menstrual control method: progesterone injection History History 2 Para 2 Hx # Term Pregnancies 1 Multiple births 0 Hx # Pregnancies 1 Ectopic pregnancies 0 AB induced 0 Hx Number of Living Children 2 AB spontaneous 0 Past Pregnancies Del. Date GA/Weeks # Preg Succ Route Wgt Sex Labor Lgth Anesthesia Location Prov Complic 10/19/16 31 Yes vaginal 2041.166 g [place] [facility] [place]23 37 No Yes vaginal 3444.467 g Female 5hrs 4min regional [facility] [place] Delivery Date: 10/19/16 Last Updated by: Jeanie Siu CNM PPROM at 31 weeks 5 days, autism, Roberto Carlos
[2024-02-14 08:03] VITALS: PULSE 77; O2SAT 97
== END 2024-02-14 08:26 | disposition home or self-care (01) ==
PROVIDERS: Emergency Provider Emergency Medicine
DX: J02.9 Acute pharyngitis, unspecified (principal); Z87.891 Personal history of nicotine dependence
CPT/HCPCS: 87880; 99283

== ENCOUNTER 2024-12-20 19:11 | Emergency (ER) | payer MEDICAID, SELFPAY ==
[2024-12-20] VITALS (8 sets, daily range): BP systolic 100–149; BP diastolic 56–70; PULSE 92–112; RESP 22–26; TEMP 37.8; O2SAT 95–97
--- NOTE | 2024-12-20 19:15 | RT.EKG_ITS ---
APPROVED REPORT Exam: Resting ECG Reason for Exam: cc Patient Location: E HR:99 bpm ECG Measurements Heart Rate 99 AXIS NV 146 P 52 QRSd 84 QRS 64 QT 359 T 87 QTc 462 Conclusion Sinus rhythm...normal P axis, V-rate 60- 99 Consider left ventricular hypertrophy...(S V1+R V5/V6) >3.25mV There are no significant changes compared to prior EKG performed on 11/28/2022 at 19:02.
--- NOTE | 2024-12-20 19:34 | W.ED.GENAD ---
Discharge Plan Disposition Patient Disposition: Home Condition: Stable Discharge Details Clinical Impression: Streptococcal sore throat, Right upper lobe pneumonia Primary Care Provider: Unknown,Unknown ED Provider: Louisa Ackerman Home Meds and New Rx's Prescriptions: New benzonatate 100 mg capsule 100 mg PO BID-TID PRN (Reason: cough) Qty: 10 0RF Rx Instructions: Take 1 capsule up to 2-3 times daily as needed for cough doxycycline hyclate 100 mg tablet 100 mg PO BID 10 Days Qty: 20 0RF cephalexin 500 mg tablet 500 mg PO BID 10 Days Qty: 20 0RF No Action dextroamphetamine-amphetamine [Adderall] 20 mg tablet 20 mg PO DAILY oxycodone 10 mg tablet 10 mg PO ONCE PRN ibuprofen 600 mg Tablet 600 mg PO Q6H PRN PRNQty: 60 0RF Discharge Instructions Instructions: Atypical Pneumonia (Mycoplasma and Viral) (DC), Strep Throat ED Additional Instructions: At this time you have tested positive for strep throat and it appears you have an atypical pneumonia on the chest x-ray. You are also very dehydrated. Please take the nausea medication 20 to 30 minutes before eating or drinking anything. Please increase oral fluids. Take the antibiotic with yogurt or probiotic as directed. Gargle with warm salt water up to 3 times daily. Follow up with primary care provider in 3-5 days. Return to ED sooner if any worsening or concerns. Please take Tylenol or Ibuprofen with food every 4-6 hours as needed for pain, fever and swelling. You may alternate the 2 take Tylenol and then a couple hours later take ibuprofen. Referrals: Primary Care Provider [Outside] - 3 days HPI General Mode of arrival: ambulatory. Date/Time Provider Initiated Documentation: 12/20/24 19:32. Limitations to Documentation: no limitations. Information obtained by: patient, RN notes reviewed and old records reviewed. HPI Narrative: 34-year-old female presents to the ER with a chief complaint of headache, chest pain cough hemoptysis. She also reports nausea vomiting. She did take Tylenol few hours ago. She is only tachycardic at a heart rate of 101 temp 37.8 lying down in the waiting room floor. She does have erythemic posterior oropharynx, lungs are clear to auscultation bilaterally. Abdomen is soft nontender with palpation. She does not have a history of any abdominal surgeries. She denies any possibility of however she is not on control. Her family is here with her at the bedside and are providing most of the history. Past medical history includes marijuana smoker, . Related Data Home Medications ?Medication ?Instructions ?Recorded ?Confirmed ibuprofen 600 mg tablet 600 mg PO Q6H PRN PRN #60 tabs 12/26/23 12/20/24 dextroamphetamine-amphetamine 20 20 mg PO DAILY 02/14/24 12/20/24 mg tablet (Adderall) oxycodone 10 mg tablet 10 mg PO ONCE PRN 02/14/24 12/20/24 benzonatate 100 mg capsule 100 mg PO BID-TID PRN cough #10 12/20/24 caps cephalexin 500 mg tablet 500 mg PO BID 10 days #20 tabs 12/20/24 doxycycline hyclate 100 mg tablet 100 mg PO BID 10 days #20 tabs 12/20/24 Previous Rx's ?Medication ?Instructions ?Recorded ibuprofen 600 mg tablet 600 mg PO Q6H PRN PRN #60 tabs 12/26/23 benzonatate 100 mg capsule 100 mg PO BID-TID PRN cough #10 12/20/24 caps cephalexin 500 mg tablet 500 mg PO BID 10 days #20 tabs 12/20/24 doxycycline hyclate 100 mg tablet 100 mg PO BID 10 days #20 tabs 12/20/24 Allergies Allergy/AdvReac Type Severity Reaction Status Date / Time amoxicillin Allergy Intermediate Skin Rash Verified 12/20/24 19:20 Penicillins Allergy Intermediate rash with Verified 12/20/24 19:20 amoxicillin General Stated Complaint: RespSymp CATARINO: 3 Review of Systems All systems reviewed & are unremarkable except as noted in HPI and below Constitutional Constitutional: Reports as per HPI, Reports body ache(s), Reports fever(s) and Reports lethargy ENT Ears, Nose, Mouth, and Throat: Denies otalgia and Reports sore throat Respiratory Respiratory: Reports chest congestion, Reports cough and Reports hemoptysis Gastrointestinal Gastrointestinal: Reports abdominal pain, Reports diarrhea, Reports nausea and Reports vomiting Exam Narrative Exam Narrative: Constitutional: Alert and oriented x3. Appears stated age. Normal body habitus. Head: Normocephalic, no trauma. Eyes: Pupils PERRL, Red reflex noted, EOM's intact. Eyelids symmetrical without lesions, discharge, or swelling. ENT: Bilateral TM's WNL, External ear normal to inspection, no mastoid TTP, swelling, or erythema, Nasal turbinates WNL, no nasal discharge. Normal dentition, Posterior pharynx erythemic tonsils 2+ bilaterally, no exudate. Chest: RRR, Normal S1, S2, distal pulses intact. Resp: Lungs clear to auscultation bilaterally, no wheezes, rales, or rhonchi. Abdomen: Soft, non-distended, Normoactive bowel sounds all 4 quads. Musculoskeletal: Normal gait, Moves all 4 extremities without difficulty. Skin: No suspicious rashes or lesions. Capillary refill less than 2 sec. Neurologic: Cranial nerves II-XII intact. Alert and oriented x 3. Motor: No deficits noted. Sensory: Intact bilaterally all 4 extremities. Hematologic/Lymphatic: No ecchymosis, no lymphadenopathy. Course Vital Signs Vital signs: Vital Signs Temperature 37.8 C H 12/20/24 19:21 Pulse 101 H 12/20/24 19:21 Respiratory Rate 22 12/20/24 19:21 Blood Pressure 149/70 H 12/20/24 19:21 Pulse Oximetry 95 12/20/24 19:21 Temperature 37.8 C H 12/20/24 19:21 Temperature Source Oral 12/20/24 19:21 Pulse 101 H 12/20/24 19:21 Respiratory Rate 22 12/20/24 19:21 Blood Pressure 149/70 H 12/20/24 19:21 Blood Pressure Position Sitting 12/20/24 19:21 Pulse Oximetry 95 12/20/24 19:21 Oxygen Delivery Method Room Air 12/20/24 19:21 Oxygen Flow Rate 0 12/20/24 19:21 Pain Level 6 12/20/24 19:21 Medical Decision Making 34-year-old female presents to the ER with a chief complaint of headache, chest pain cough hemoptysis. She also reports nausea vomiting. She did take Tylenol few hours ago. She is tachycardic at a heart rate of 101 temp 37.8 lying down in the waiting room floor. She does have erythemic posterior oropharynx, lungs are clear to auscultation bilaterally. Abdomen is soft nontender with palpation. She does not have a history of any abdominal surgeries. She denies any possibility of however she is not on control. Her family is here with her at the bedside and are providing most of the history. Past medical history includes marijuana smoker, . Workup ordered including chest x-ray POC flu and COVID, urinalysis urine strep swab Zofran ODT will give Tylenol or ibuprofen after the test. Positive rapid strep swab. Patient is allergic to penicillin and amoxicillin so she was given clindamycin 300 mg p.o. here in the department initially. Patient continues to be tachycardic, patient moved to a different room, IV labs ordered including lactate and blood cultures liter of fluids, 15 mg IV Toradol and Rocephin 1 g IV piggyback. X-ray shows a atypical right upper lobe pneumonia. Informed by ED staff that patient's lactate is critically high at 3.2. On patient reevaluation her heart rate is 96 she is satting 96 % on room air blood pressure is 100/68. Sodium is 132 potassium 3.7 chloride 94 glucose 127 urinalysis shows 15 ketones small bilirubin trace leukocytes many epithelials but is squamous contaminated. Will plan to send patient home with doxycycline and Cephalexin. To cover for both pneumonia and strep throat. Patient has tolerated cephalexin in the past and received a gram of Rocephin here in the department. Patient ambulatory without assistance from department at discharge. Vital signs have improved. Patient was sent with doxycycline and cephalexin and Zofran and ODT 3 tablets. This text was generated using [employer]imaation system, please disregard any oddities of phrase or misspellings. Imaging Data Radiologic Study: Imaging: X-Ray Radiologist's impression: Imaging protocol: Radiologic exam of the chest. Views: 2 views. COMPARISON: CR XR CHEST 2V PA LATERAL 11/28/2022 8:23 PM FINDINGS: Lungs: There is a large masslike opacity projecting over the right upper lobe. There are scattered smaller patchy opacities projecting over the left lung. Pleural spaces: No pleural effusion or pneumothorax is demonstrated. Heart/Mediastinum: The heart appears normal in size. Bones/joints: Visualized bony structures appear grossly intact. IMPRESSION: Large masslike opacity projecting over the right upper lobe. Right upper lobe pneumonia is suspected primarily in a young patient. Clinical correlation is recommended as well as posttreatment follow-up to document resolution. Thank you for allowing us to participate in the care of your patient. Dictated and Authenticated by: Shalom Manzo MD Lab Data Lab results reviewed: Yes I reviewed the patient's lab results. Labs: 12/20/24 22:20 Blood Blood Culture - Pending 12/20/24 22:05 Blood Blood Culture - Pending Laboratory Tests Range/Units 12/20/24 12/20/24 12/20/24 19:32 19:34 21:05 WBC Cancelled RBC Cancelled Hgb Cancelled Hct Cancelled MCV Cancelled MCH Cancelled MCHC Cancelled RDW Cancelled Plt Count Cancelled MPV Cancelled Immature Gran % Cancelled Neutrophils % Cancelled Band Neutrophils % Cancelled Lymphocytes % Cancelled Atypical Lymphs % Cancelled Monocytes % Cancelled Eosinophils % Cancelled Basophils % Cancelled Metamyelocytes % Cancelled Myelocytes % Cancelled Promyelocytes % Cancelled Other Cells % Cancelled Nucleated RBC % Cancelled Absolute Neutrophils Cancelled Absolute Lymphocytes Cancelled Absolute Monocytes Cancelled Absolute Eosinophils Cancelled Absolute Basophils Cancelled RBC Morphology Cancelled Polychromasia Cancelled Hypochromasia Cancelled Poikilocytosis Cancelled Basophilic Stippling Cancelled Anisocytosis Cancelled Microcytosis Cancelled Macrocytosis Cancelled Spherocytes Cancelled Tear Drop Cells Cancelled Ovalocytes Cancelled Stomatocytes Cancelled [place] Bodies Cancelled [place] Cells/Echinocytes Cancelled Acanthocytes (Spur) Cancelled Schistocytes Cancelled VBG Lactate (<or=2.0) mmol/L Sodium Cancelled Potassium Cancelled Chloride Cancelled Carbon Dioxide Cancelled Anion Gap Cancelled BUN Cancelled Creatinine Cancelled Est GFR (CKD-EPI 2020) Cancelled Glucose Cancelled Calcium Cancelled Magnesium Cancelled Total Bilirubin Cancelled AST Cancelled ALT Cancelled Alkaline Phosphatase Cancelled Total Protein Cancelled Albumin Cancelled Lipase Cancelled Urine Color (Yellow) Yellow Urine Clarity (Clear) Clear Urine pH (5-8) 6.5 Ur Specific House (1.005-1.025) 1.020 Urine Protein (Neg-Trace) mg/dL 100 H Urine Ketones (Negative) mg/dL 15 H Urine Blood (Negative) Negative Urine Nitrite (Negative) Negative Urine Bilirubin (Negative) Small H Urine Urobilinogen (Up to 0.2) mg/dL 1.0 H Ur Leukocyte Esterase (Negative) Trace H Urine RBC (0-2) HPF Negative Urine WBC (0-5) HPF 0-2 Ur Epithelial Cells (Negative) HPF Many Urine Crystals (Negative) HPF Negative Urine Bacteria (Negative) HPF Negative Urine Casts (Negative) LPF Negative Urine Mucus (Negative) Negative Ur Culture Indicated? No/Sq. Contamination Urine Glucose (Negative) mg/dL Negative Salicylates Cancelled Acetaminophen Cancelled Range/Units 12/20/24 22:05 WBC 6.96 RBC 4.43 Hgb 13.5 Hct 39.2 MCV 89 MCH 30.5 MCHC 34.4 RDW 12.0 Plt Count 148 MPV 9.9 Immature Gran % 0.0 Neutrophils % 78.0 Band Neutrophils % 12 Lymphocytes % 4.0 Atypical Lymphs % Monocytes % 6.0 Eosinophils % 0.0 Basophils % 0.0 Metamyelocytes % Myelocytes % Promyelocytes % Other Cells % Nucleated RBC % 0.0 Absolute Neutrophils 6.26 Absolute Lymphocytes 0.28 L Absolute Monocytes 0.42 Absolute Eosinophils 0.00 Absolute Basophils 0.00 RBC Morphology Normal Polychromasia Hypochromasia Poikilocytosis Basophilic Stippling Anisocytosis Microcytosis Macrocytosis Spherocytes Tear Drop Cells Ovalocytes Stomatocytes [place] Bodies [place] Cells/Echinocytes Acanthocytes (Spur) Schistocytes VBG Lactate (<or=2.0) mmol/L 3.2 H* Sodium 132 L Potassium 3.7 Chloride 94 L Carbon Dioxide 27.6 Anion Gap 10.4 BUN 12 Creatinine 0.8 Est GFR (CKD-EPI 2020) 97.87 Glucose 127 H Calcium 8.5 Magnesium Total Bilirubin 0.83 AST 16 ALT 21 Alkaline Phosphatase 58 Total Protein 7.3 Albumin 3.4 Lipase Urine Color (Yellow) Urine Clarity (Clear) Urine pH (5-8) Ur Specific House (1.005-1.025) Urine Protein (Neg-Trace) mg/dL Urine Ketones (Negative) mg/dL Urine Blood (Negative) Urine Nitrite (Negative) Urine Bilirubin (Negative) Urine Urobilinogen (Up to 0.2) mg/dL Ur Leukocyte Esterase (Negative) Urine RBC (0-2) HPF Urine WBC (0-5) HPF Ur Epithelial Cells (Negative) HPF Urine Crystals (Negative) HPF Urine Bacteria (Negative) HPF Urine Casts (Negative) LPF Urine Mucus (Negative) Ur Culture Indicated? Urine Glucose (Negative) mg/dL Salicylates Acetaminophen Quality:SDOH Health Related Social Needs: Health related social needs details none PFSH All Active Problems (Updated 12/20/24 @ 22:59 by Louisa Ackerman NP) Right upper lobe pneumonia (Acute) Streptococcal sore throat (Acute) Lactating mother (Acute) care following vaginal delivery (Acute) Depression (Chronic) Anxiety (Chronic) Herniated lumbar intervertebral disc (Acute) L5-S1 Advanced maternal age (AMA) in (Acute) Chronic back pain (Acute) Medical History 37 weeks gestation of Marijuana smoker Chronic pain Short cervical length during Low lying placenta nos or without hemorrhage, second trimester Surveillance for Depo-Provera contraception Contraception Uses Depo-Provera as primary control method History of delivery Family History Brother Alcohol abuse Mother Substance abuse Alcohol abuse Father Substance abuse Diabetes Stroke Paternal Grandmother Stroke Paternal Aunt No problems noted. Paternal Grandfather Heart disease congestive heart failure Social History Smoking/Tobacco Use Status: Former Tobacco Use Smoking risk assessment performed?: Yes Alcohol Intake: former Drug use: Daily Substance use type: marijuana Details: none Housing: house Current gender identity: female Do you feel safe at home: Yes Do you feel safe in your relationship?: Yes Additional Social history: none Female Reproductive History Menstrual control method: progesterone injection History History 2 Para 2 Hx # Term Pregnancies 1 Multiple births 0 Hx # Pregnancies 1 Ectopic pregnancies 0 AB induced 0 Hx Number of Living Children 2 AB spontaneous 0 Past Pregnancies Del. Date GA/Weeks # Preg Succ Route Wgt Sex Labor Lgth Anesthesia Location Prov Complic 10/19/16 31 Yes vaginal 2041.166 g Male 5 hours local [facility] [place] 12/25/23 37 No Yes vaginal 3444.467 g Female 5hrs 4min regional [facility] Delivery Date: 10/19/16 Last Updated by: Jeanie Siu CNM PPROM at 31 weeks 5 days, zena, [place]
--- NOTE | 2024-12-20 19:45 | DI.RAD_ITS ---
Exam(s) XR CHEST 2V PA LATERAL EXAM: XR CHEST 2V PA LATERAL CLINICAL HISTORY: Cough, SOB TECHNIQUE: 2D digital imaging was performed. Two views. COMPARISON: CR,XR XR CHEST 2V PA LATERAL from 11/28/2022 FINDINGS: HEART: Normal size. Aorta: Not dilated. PULMONARY VASCULATURE: Normal. MEDIASTINUM: Unremarkable. LUNGS: There is a large area of consolidation in the posterior right upper lobe abutting the fissure. Other fainter of opacities are noted in the left upper and lower lobes. PLEURAL SPACE: No pleural effusion or pneumothorax. BONE:Unremarkable for age. SOFT TISSUES: Unremarkable. IMPRESSION: Right upper lobe pneumonia with consolidation. Patchy infiltrates in the left upper and lower lobes. DATA REPOSITORY: RADIATION DOSE DELIVERED:
[2024-12-20] MEDS: Ondansetron O.D.T. 4 MG TABEF PO (19:59)
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
--- OUTSIDE RECORDS SUMMARY | 2024-12-20 20:30 | XMS_ITS | Continuity of Care Document ---
Author Organization [facility] Ambulatory Clinics Address [address] [place] [address] Care Team Providers Care Tar Pot Man Name Role Phone Fab HERBERT, Rosangela Primary Care Physician Encounter [facility] NBR [id number] Date(s): 02/04/23 - 02/04/23 [facility] Ambulatory Clinics [address] [place] [id number] Patient Care team information Care Team Personnel Name: Rosangela Sanon MD Position: Physician Member Role: Primary Care Physician Address: Address: [address] [place] [phone] Care Team Related Persons Name: SABRINA KERR Address: Home [address] [place] [phone] [place] [address]
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
--- OUTSIDE RECORDS SUMMARY | 2024-12-20 20:30 | XMS_ITS | Continuity of Care Document ---
Author Organization [facility] Address [address] [place] [phone] Care Team Providers Care Chemical Plant Manager Name Role Phone Rosangela Sanon MD Primary Care Physician [phone] Encounter [facility] NBR [id number] Date(s): 03/20/23 - 03/20/[address] [address] Encounter Diagnosis Other chronic pain(Discharge Diagnosis) - 03/20/23 Discharge Disposition: Home or Self Care Attending Physician: POLO Benites Admitting Physician: POLO Benites Referring Physician: POLO Benites Allergies, Adverse Reactions, Alerts Substance Reaction Severity [...] Exam Date Time Procedure Performing Provider Status 03/20/23 12:05 PM XR Spine Lumbosacral 4+ Views Antduncan nakia Dionna; Tasha (Verified) Notes: (XR Spine Lumbosacral 4+ Views) Reason For Exam: low back pain XR Spine Lumbosacral 4+ Views EXAM DESCRIPTION: XR Spine Lumbosacral 4+ Views 03/20/2023 INDICATION: LOW BACK PAIN TECHNIQUE: AP and lateral views of the lumbar spine including lateral views with voluntary flexion/extension, five views COMPARISON: None IMPRESSION: No acute fracture. Transitional vertebral segment at the lumbosacral junction which appears to reflect a partially lumbarized S1 segment. This will be labeled S1 for purposes of vertebral body numbering for this examination. Grade 1 spondylolisthesis at L5-S1. Lumbar lordosis is otherwise satisfactory in the neutral position. Mild levoscoliosis centered in the mid-lower lumbar region. With voluntary flexion, there is grade 1 anterolisthesis at L4-5 with narrowing of the anterior aspect of the L4-5 intervertebral disc space suggesting instability. Mild grade 1 anterolisthesis at L3-4 with voluntary flexion suggesting mild instability as well. Otherwise views with voluntary flexion/extension demonstrate no evidence of significant instability Intervertebral disc spaces are well maintained throughout the lumbar region in the neutral position. SI joints appear symmetric. JOB #: [id number] Final Signed by: Wade Garcia MD Signed (Electronic Signature): 03/20/2023 12:16 pm Social History Social History Type Response Tobacco Former tobacco user Tobacco Use:. Sex XR Spine Lumbar and Sacrum GE 4 Views * Wade Garcia MD: VERIFY, VERIFY Event Display: Report EXAM DESCRIPTION: XR Spine Lumbosacral 4+ Views 03/20/2023 INDICATION: LOW BACK PAIN TECHNIQUE: AP and lateral views of the lumbar spine including lateral views with voluntary flexion/extension, five views COMPARISON: None IMPRESSION: No acute fracture. Transitional vertebral segment at the lumbosacral junction which appears to reflect a partially lumbarized S1 segment. This will be labeled S1 for purposes of vertebral body numbering for this examination. Grade 1 spondylolisthesis at L5-S1. Lumbar lordosis is otherwise satisfactory in the neutral position. Mild levoscoliosis centered in the mid-lower lumbar region. With voluntary flexion, there is grade 1 anterolisthesis at L4-5 with narrowing of the anterior aspect of the L4-5 intervertebral disc space suggesting instability. Mild grade 1 anterolisthesis at L3-4 with voluntary flexion suggesting mild instability as well. Otherwise views with voluntary flexion/extension demonstrate no evidence of significant instability Intervertebral disc spaces are well maintained throughout the lumbar region in the neutral position. SI joints appear symmetric. JOB #: [id number] Final Signed by: Wade Garcia MD Signed (Electronic Signature): 03/20/2023 12:16 pm Patient Care team information Care Team Personnel Name: Rosangela Sanon MD Position: Physician Member Role: Primary Care Physician Address: Address: [address] [place] [phone] [place] Care Team Related Persons Name: SABRINA KERR Address: [address] [id number] [facility]
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
--- OUTSIDE RECORDS SUMMARY | 2024-12-20 20:30 | XMS_ITS | Continuity of Care Document ---
Author Organization [facility] Ambulatory Clinics Address [address] [place] [address] Care Team Providers Care Hand Woodworking Sander Name Role Phone RASHMI SHAW APRN Primary Care Physician [phone] Encounter [facility] NBR [id number] Date(s): 04/15/24 - 04/15/24 [facility] Ambulatory Clinics [address] [place] [address]- [place] Discharge Disposition: Home Allergies, Adverse Reactions, Alerts Substance Reaction Severity [...] Confirmed Active Lumbar spinal stenosis Confirmed Active Social History Social History Type Response Tobacco Former tobacco user Tobacco Use:. Sex Patient Care team information Care Team Personnel Name: RASHMI SHAW APRN Position: No Access Member Role: Primary Care Physician Address: Address: [facility] [address] [place], [place] [address] Care Team Related Persons Name: SABRINA KERR Address: Home [address] [id number] [place]
--- OUTSIDE RECORDS SUMMARY | 2024-12-20 20:31 | XMS_ITS | Data Portability ---
Author Organization [place] - [facility] Address [address] [place] [address] Care Team Providers Care Hand Icer Name Role Phone ROSANGELA SANON Primary Care Provider [phone] Assessment No assessment recorded. Plan of Treatment Reminders Order Date Submit Date Provider Last Modified By Organization Details Last Modified Time Details Appointments None recorded. Lab rapid strep group A, throat 2023 024 [email or web address] [facility], [address] [place] [address], [address], [place], [address], 4 10:52:37 test, urine 2023 024 [email or web address] [facility], [address], [place], [address], 4 14:44:22 drug screen, urine [address], [address], [place], [address], 4 14:44:22 Referral None recorded. Procedures None recorded. Surgeries None recorded. Imaging None recorded. Medication Orders cephalexin 500 mg capsule 2023 024 [email or web address] [facility], [address] [facility] [address], [place], [address], 4 10:28:32 cephalexin 500 mg capsule 2023 024 [email or web address] [facility], [address] [place] [address], [address], 4 10:28:32 Adderall XR 20 mg capsule,ext ended release 2023 024 [facility], [address] [place] [address], [address], 4 11:00:56 oxycodone 10 mg tablet 2023 024 [email or web address] [facility], [address] [place] [address], [address], 4 13:45:11 Adderall XR 20 mg capsule,ext ended release 2023 024 [facility], [address] [place] [address], [address], 4 13:55:30 oxycodone 20 mg tablet 2023 024 [facility], [address] [place] [address], [address], 4 14:44:27 escitalopra m 10 mg tablet 2023 024 [facility], [address] [place] [address], [address], 4 14:37:08 Patient TargetsNo targets recorded. Patient Instructions Encounter Date Encounter Id Patient Instructions Last Modified By Organization Details Last Modified Time 01/13/2024 [id number] 1. You are positive for strep throat. You were given your first dose of antibiotic while here. You will take this medication twice a day for total of 10 days. 2. You are contagious until you have been on antibiotics for a full 24 hours. 3. Please make sure you stay well-hydrated. 4. I do expect you should improve. If you do not improve or have worsening please seek reevaluation as needed. [email or web address] Not available 01/13/2024 11:02:54 02/01/2024 [id number] let's start with restarting your adhd medication will try adderall xr 20mg daily 2 week phone check in to see how you're doing 1 month follow up in office [email or web address] Not available 02/12/2024 23:17:01 02/22/2024 [id number] Nice to see you today! glad the Adderall XR 40mg daily is working better follow up with pain and spine at [place] as planned will refill oxycodone until plan at [facility] and then pain management will be transferred to pain clinic there or at [facility] [email or web address] Not available 02/28/2024 14:58:12 Reason for Referral None Reported. Results Created Date Observation Date Name Description Value Unit Range Abnormal Flag Note LastModifiedBy Organization Detail LastModifiedTime 01/13/20 24 01/13/2024 rapid strep group A, throa t Strep positi ve Not Available [address], [place], [address], 01/13/2024 10:28:49 05/09/20 24 05/09/2024 pregn garth test, urine HCG negati ve Not Available [facility] [address], [place], [address], 05/09/2024 14:10:37 05/09/20 24 05/09/2024 drug scree n, urine Amphetamines : positi ve Not Available [facility] [address], [place], [address], 05/09/2024 13:50:06 05/09/20 24 05/09/2024 drug scree n, urine Barbiturates : negati ve Not Available [facility] [address], [place], [address], 05/09/2024 13:50:06 05/09/20 24 05/09/2024 drug scree n, urine BUP: negati ve Not Available [facility] [address], [place], [address], 05/09/2024 13:50:06 05/09/20 24 05/09/2024 drug scree n, urine Benzodiazepi sotero: negati ve Not Available [facility] [address], [place], [address], 05/09/2024 13:50:06 05/09/20 24 05/09/2024 drug scree n, urine Cocaine: negati ve Not Available [facility] [address], [place], [address], 05/09/2024 13:50:06 05/09/20 24 05/09/2024 drug scree n, urine EDDP (Methadone Metabolite) negati ve Not Available [facility] [address], [place], [address], 05/09/2024 13:50:06 05/09/20 24 05/09/2024 drug scree n, urine (MET) Methamphetam ine: negati ve Not Available [facility] [address], [place], [address], 05/09/2024 13:50:06 05/09/20 24 05/09/2024 drug scree n, urine MDMA: negati ve Not Available [facility] [address], [place], [address], 05/09/2024 13:50:06 05/09/20 24 05/09/2024 drug scree n, urine MTD (Methadone): negati ve Not Available [facility] [address], [place], [address], 05/09/2024 13:50:06 05/09/20 24 05/09/2024 drug scree n, urine [id number] (Opiate): negati ve Not Available [facility] [address], [place], [address], 05/09/2024 13:50:06 05/09/20 24 05/09/2024 drug scree n, urine OXY (Oxycodone): positi ve Not Available [facility] [address], [place], [address], 05/09/2024 13:50:06 05/09/20 24 05/09/2024 drug scree n, urine TCA: negati ve Not Available [facility] [address], [place], [address], 05/09/2024 13:50:06 05/09/20 24 05/09/2024 drug scree n, urine THC: negati ve Not Available [facility] [address], [place], [address], 05/09/2024 13:50:06 08/01/20 24 11/28/2022 imagi ng/di agnos tic resul t No observ ation record ed. [email or web address] Not Available 08/01 10:29:50 08/01/20 24 11/28/2022 imagi ng/di agnos tic resul t No observ ation record ed. [email or web address] Not Available 08/01 10:30:19 08/01/20 24 01/15/2023 MRI, lumba r spine No observ ation record ed. [email or web address] Not Available 08/01 10:30:29 08/01/20 24 01/15/2023 imagi ng/di agnos tic resul t No observ ation record ed. [email or web address] Not Available 08/01 10:30:37 08/01/20 24 11/29/2022 imagi ng/di agnos tic resul t No observ ation record ed. [email or web address] Not Available 08/01 10:30:52 08/01/20 24 09/24/2020 imagi ng/di agnos tic resul t No observ ation record ed. [email or web address] Not Available 08/01 10:30:53 Result Notes None recorded. Problems Name Problem SNOMED Code Status Onset Date Resolution Date Notes Provider Name and Address Organization Details Recorded Time Non-supp urative otitis media 580041808 Completed 201905/28/2020 03/28/20 20 - Comments only - Flori DRAKEP - History and presenta tion consiste nt with middle ear effusion without s/sx of infectio n. Advised good hydratio n. If no improvem ent in 3 weeks, may consider use of flonase. Pt to f/u if any concerns or new s/sx. 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 Will follow up in 4 weeks by phone. past records, past dx, health history, medicati ons reviewed and updated as needed. preventa tive care reviewed . Problem Code: Z71.89; Problem Code Type: ICD-10; Not Available [facility] 3 05:48:45 Family problems 632249257 Active 2022 BENIGNO bose, [facility] 4 09:28:53 Panic disorder 018498853 Active 2022 BENIGNO bose, [facility] 4 09:29:03 Insomnia 995546681 Active 2022 BENIGNO bose, [facility] 4 09:28:58 Cognitiv e deficit in attentio n 71256072918 9100 Active 2022 BENIGNO bose, [facility] 4 09:28:40 Attentio n deficit hyperact ivity disorder 406065687 Active 2022 BENIGNO bose, [facility] 4 09:28:35 Amenorrh ea 59758463 [facility] 09:28[facility]26 Pregnanc y test positive 554288789 Completed 202202/11/2024 SABINA BARBA [address], [place], [address] , [facility] 4 11:03:59 Low back pain 691816826 Completed 202108/12/2023 03/12/20 22 - Comments only - Derrick Gray RPA - Trial of Lyrica. I reviewed side effect profile and mechanis m of action. No focal signs of nerve impingem ent on exam. Again, we will try to get records from the spine clinic. She had signific ant work-up in the past includin g what sounds like trigger point injectio ns with little relief. She would likely be a good candidat e for pain clinic. We will get an x-ray of her lower back. This is where her pain pattern is mostly located, however it is diffuse. Problem Code: M54.50; Problem Code Type: ICD-10; SABINA BARBA [address], [place], [address] , [facility] 4 11:03:53 Urticari a [id number] Completed 202012/10/2022 Problem Code: L50.9; Problem Code Type: ICD-10; Not Available [facility] 3 05:48:46 Backache 918309926 Completed 200912/10/2022 Not Available [facility] 3 05:48:47 Streptoc occal sore throat 07114553 Completed 202302/11/[address], [place], [address] , [facility] 4 11:04:06 Opioid dependen ce 03327443 Active [address], [place], [address] , [facility] 12:43:01 Missed period 67629335 Active [address], [place], [address] , [facility] 14:10:29 Problem Notes None recorded. Procedures Surgical History Date Name Laterality Status Provider Name and Address Organization Details Recorded Time 06/26/2023 Date of Last Pap Smear completed WILL GREENE RN [facility] 02/01/2024 10:26:08 Imaging Results Imaging Date Name Status [facility] Details LastModified Time 11/28/2022 imaging/diag nostic result completed Information not available 08/01/2024 10:29:50 11/28/2022 imaging/diag nostic result completed Information not available 08/01/2024 10:30:19 01/15/2023 MRI, lumbar spine completed Information not available 08/01/2024 10:30:29 01/15/2023 imaging/diag nostic result completed Information not available 08/01/2024 10:30:37 11/29/2022 imaging/diag nostic result completed Information not available 08/01/2024 10:30:52 09/24/2020 imaging/diag nostic result completed Information not available 08/01/2024 10:30:53 Procedure Notes None recorded. Medical Equipment None Reported. Allergies Allergen ID Allergen Name Allergen Category Reaction Reaction Severity Criticality Documentation Date Start Date Code Code System Note Provider Name and Address Organization Details Recorded Time 03433 amoxicill in trihydrat e medicatio n rash moderate Not available 09/25/20232014 04526 8 RxNorm Erika Cordero RN null, [facility] 4 10:16:07 05569 Product containin g penicilli n and antibioti c (product) medicatio n rash moderate Not available 09/25/20232022 22426 05 SNOMED Erika Cordero RN null, [facility] 4 10:16:15 18853 acetamino phen / hydrocodo ne medicatio n other mild Not available 01/13/2024 93734 2 RxNorm GI upset Erika Cordero RN null, [facility] 4 10:16:48 Medications Name Sig Start Date Stop Date Status Note LastModified by Organization Details LastModified Time methocarb kailyn 500 mg tablet Take 1 tablet by mouth three times a day as needed 03/12 completed Not Available Not Available Not Available prednison e 10 mg tablet Take 4 tablet by mouth every morning Take 4 tablets by mouth x3 days. Take 3 tablets by mouth x3 days, take 2 tablets by mouth x3 days, take 1 tablet by mouth x3 days. 11/13 completed Not Available Not Available Not Available Acetamino phen Extra Strength 500 mg tablet Take 2 tablet by mouth once a day as needed for back pain 03/24 completed Not Available Not Available Not Available clindamyc in HCl 300 mg capsule TAKE ONE CAPSULE BY MOUTH EVERY 8 HOURS FOR 7 DAYS 01/31 completed Not Available Not Available Not Available Concerta 18 mg tablet,ex tended release 1 tablet by mouth once a day 04/02 completed Not Available Not Available Not Available azithromy simone 250 mg tablet TAKE TWO TABLETS BY MOUTH AT ONCE ON THE FIRST DAY THEN TAKE ONE DAILY THEREAFT ER 01/31 completed Not Available Not Available Not Available tramadol 50 mg tablet Take 1 tablet by mouth at bedtime for back pain 01/09 completed Not Available Not Available Not Available alprazola m 0.5 mg tablet Take 1 tablet by mouth once a day as needed 03/05 completed Not Available Not Available Not Available amitripty line 25 mg tablet Take 1 tablet by mouth every night 03/12 completed Not Available Not Available Not Available Depo-Prov era 150 mg/mL intramusc ular suspensio n Inject 1 mL every 3 months by intramus cular route as directed . active through [facility] Not Available Not Available Not Available dextroamp hetamine- amphetami ne ER 20 mg 24hr capsule,e xtend release TAKE TWO CAPSULES BY MOUTH EVERY MORNING FOR 28 DAYS FO ADHD active has not been filled since 04/26/24 per patient choice Not Available Not Available Not Available baclofen 10 mg tablet TAKE ONE TABLET BY MOUTH FOUR TIMES A DAY NEEDED FOR PAIN active Not Available Not Available No t Available cephalexi n 500 mg capsule TAKE ONE CAPSULE BY MOUTH TWICE A DAY FOR 10 DAYS 01/31 completed Not Available Not Available Not Available Concerta 36 mg tablet,ex tended release Take 1 tablet by mouth once a day 01/13 completed dose increase from 27mg to 36mg 04/24/23 Not Available Not Available Not Available progester one micronize d 200 mg capsule TAKE ONE CAPSULE BY MOUTH EVERY DAY 01/31 completed Not Available Not Available Not Available gabapenti n 300 mg capsule Take 1 capsule by mouth at bedtime 01/13 completed Not Available Not Available Not Available hydroxyzi ne HCl 25 mg tablet 1/2 to 1 tab every 6 hours by mouth as needed for anxiety. May take 1-2 tabs at HS for sleep. Max 6tabs /24 hours 01/13 completed Not Available Not Available Not Available ibuprofen 600 mg tablet TAKE 1 TABLET BY MOUTH EVERY 6 HOURS NEEDED active Not Available Not Available No t Available Septra DS 800 mg-160 mg tablet 1 TAB twice daily 05/17 completed Not Available Not Available Not Available methylpre dnisolone 4 mg tablets in a dose pack TAKE DIRECTED ON PACKAGIN G active Not Available Not Available No t Available Percocet 5 mg-325 mg tablet 1TAB 03/28 completed Not Available Not Available Not Available loratadin e 10 mg tablet Take 1 tablet by mouth twice a day as needed for hives 11/11 completed Not Available Not Available Not Available Benadryl 25 mg capsule Take 1 capsule by mouth at bedtime as needed for hives 12/01 completed Not Available Not Available Not Available Concerta 27 mg tablet,ex tended release 1 tablet by mouth once a day 04/24 completed Not Available Not Available Not Available escitalop gorge 10 mg tablet TAKE ONE TABLET BY MOUTH EVERY MORNING FOR ANXIETY AND MOOD active Not Available Not Available No t Available escitalop gorge 20 mg tablet Take 1 tablet by mouth once a day in the morning 01/13 completed Not Available Not Available Not Available escitalop gorge 5 mg tablet Take 1 tablet by mouth once a day 01/22 completed Not Available Not Available Not Available duloxetin e 30 mg capsule,d elayed release 1 tablet once a day 11/01 completed Not Available Not Available Not Available Lyrica 75 mg capsule Take 1 capsule by mouth twice a day 12/09 completed Not Available Not Available Not Available 02/21 completed Not Available Not Available Not Available cholecalc iferol (vitamin D3) 1,250 mcg (50,000 unit) capsule Take 1 capsule by mouth once a week for 12 weeks, then transiti on to 2000 units once daily OTC 01/13 completed Not Available Not Available Not Available oxycodone 20 mg tablet TAKE ONE TABLET BY MOUTH TWICE A DAY NEEDED FOR FOR WORST BACK PAIN active Not Available Not Available No t Available oxycodone 10 mg tablet 1 tablet PO three times daily, alternat ing with twice daily dosing the next day. Max of 3 tablets in 24 hours. Qty of 70 tablets must last 28 days. 06/20 completed Not Available Not Available Not Available Vitamin D3 50 mcg (2,000 unit) tablet Take 1 tablet by mouth once a day 03/24 completed Not Available Not Available Not Available OxyContin 20 mg tablet,cr ush resistant ,extended release Take 1 tablet by mouth once a day as needed for pain 01/26 completed Not Available Not Available Not Available naloxone 4 mg/actuat ion nasal spray INSTILL 1 SPRAY INTO ONE NOSTRIL DIRECTED NEEDED FOR RESPIRAT ORY DIFFICUL TY DUE TO ACCIDENT AL OPIOID OVERDOSE active Not Available Not Available No t Available baclofen 5 mg tablet TAKE ONE TABLET BY MOUTH THREE TIMES A DAY active Not Available Not Available No t Available naloxone 10 mg/actuat ion nasal spray 1mg in each nostril x 1. may repeat dose in 3 to 5 minutes if symptoms recur 03/14 completed Not Available Not Available Not Available Vitals Date Recorded Body height Body mass index (BMI) Body weight Body temperature Respiratory rate Oxygen saturation Oxygen saturation in Arterial blood by Pulse oximetry Heart rate Systolic blood pressure Diastolic blood pressure Provider Name and Address Organization Details Last Updated DateTime 4 172.8 cm 28 kg/m2 88104 g 100.2 [degF] 17 /min 97 % 97 % 108 /min 101 mm[Hg] 69 mm[Hg] Erika Cordero RN [facility] 4 10:15:57 Date Recorded Body height Body mass index (BMI) Body weight Body temperature Heart rate Respiratory rate Systolic blood pressure Diastolic blood pressure Provider Name and Address Organization Details Last Updated DateTime 4 172.8 cm 29.4 kg/m2 54690.2 g 99 [degF] 72 /min 14 /min 112 mm[Hg] 62 mm[Hg] WILL GREENE RN [facility] 4 10:46:03 Date Recorded Body height Provider Name an d Address Organization Details Last Updated DateTime 02/22/2024 172.8 cm WILL GREENE RN [facility] 02/22/2024 11:39:49 Date Recorded Body mass index (BMI) Body weight Body temperature Oxygen saturation Oxygen saturation in Arterial blood by Pulse oximetry Heart rate Systolic blood pressure Diastolic blood pressure Provider Name and Address Organization Details Last Updated DateTime 4 28 kg/m2 48339.1 g 97.9 [degF] 98 % 98 % 89 /min 128 mm[Hg] 78 mm[Hg] Valeria Koehler MA [facility] 4 11:52:13 Date Recorded Body height Body mass index (BMI) Body weight Body temperature Oxygen saturation Oxygen saturation in Arterial blood by Pulse oximetry Heart rate Systolic blood pressure Diastolic blood pressure Provider Name and Address Organization Details Last Updated DateTime 4 172.8 cm 25.6 kg/m2 29600.2 4 g 98.1 [degF] 98 % 98 % 72 /min 132 mm[Hg] 64 mm[Hg] Nita Wilcox RN [facility] 4 13:41:49 Social History Question Answer Notes LastModified by Organizat ion Details LastModified Time Tobacco Smoking Status Former Smoker Erika Cordero RN [facility], [facility] 01/13/2024 10:17:54 When Did You Quit Smoking? 11-15yearssi [email or web address] Information not available 01/13/2024 What Was The Date Of Your Most Recent Tobacco Screening? 04/12/2024 Information not available 04/12/2024 Has Tobacco Cessation Counseling Been Provided? Yes Information not available 01/13/2024 On What Date Was Tobacco Cessation Counseling Provided? 04/12/2024 Information not available 04/12/2024 Do You Or Have You Ever Used Any Other Forms Of Tobacco Or Nicotine? No Information not available 01/13/2024 Sex: Female Functional Status None recorded. Mental Status None recorded. Family History Nothing Reported Notes:*Problem: dad (living) : DM mom mva mat gf prostate ca Medical History No medical history recorded. Gynecological History Statement/Question Response Date of Last Pap Smear 06/26/2023 Obstetrics History GPAL:G 0 P 0 0 0 0 Immunizations Vaccine Type Date Status Note Provider Nam e and Address Organization Details Recorded Time influenza, unspecified formulation 08/21/2023 completed JERED Isaacs, [facility] 01/13/2024 10:19:54 Tdap 10/30/2023 completed JERED Isaacs, [facility] 01/13/2024 10:20:02 Respiratory syncytial virus (RSV), unspecified 11/17/2023 completed JERED Isaacs, [facility] 01/13/2024 10:20:13 COVID-19, mRNA, LNP-S, bivalent, PF, 50 mcg/0.5 mL or 25mcg/0.25 mL dose 03/16/2021 completed JERED Isaacs, [facility] 01/13/2024 10:20:25 COVID-19, mRNA, LNP-S, bivalent, PF, 50 mcg/0.5 mL or 25mcg/0.25 mL dose 04/13/2021 completed JERED Isaacs, [facility] 01/13/2024 10:20:28 Past Encounters Encounter ID Performer Location Encounter Start Date Encounter Closed Date Diagnosis/Indication Diagnosis SNOMED-CT Code Diagnosis ICD10 Code Diagnosis Note [id number] CARLENE MARTINEZ PA-C [address] [address] 01/13/2024 09:45:04 01/13/2024 11:04:51 Streptococcal sore throat 80351591 J02.0 Patient developed sore throat yesterday with temperatur e as high as 101 responsive to Tylenol. Her son and his father both tested positive for strep and completed round of antibiotic s in the last couple of days. Her rapid strep is positive. She has allergy to amoxicilli n and penicillin which causes hives. She will be started on cephalexin 500 mg twice daily x 10 days given first dose while here. Educated she is contagious until she has been on antibiotic s for full 24 hours. Stressed the importance of staying well-hydra tu. Currently no findings to suggest peritonsil lar abscess or concern for airway compromise . I do expect symptoms should improve. If she does not improve or has worsening she is encouraged to seek reevaluati on as needed. [id number] SABINA BARBA [facility] [address] [place] [address] 02/01/2024 10:34:31 02/01/2024 11:22:52 Anxiety disorder 057579921 F41.9 Discussed restarting escitalopr am. Patient chose to start ADHD medication first and see how her mood and anxiety improve or not. Will follow-up in 1 month to see if wanting to start any medication for anxiety. Attention deficit hyperactivity disorder 186467391 F90.9 Patient is agreeable to trying Adderall XR 20 mg daily. This is in place of the Concerta 36 mg she was on prior to . [place] it was not strong enough. She is willing to stop with breast-fee ding and use formula for baby as she feels her mental health and concentrat ion are most important currently. She will follow-up in office in 1 month. She will call if any concerns sooner. Low back pain 759793783 M54.50 Discussed returning to pain and spine clinic at [place]. Last seen there in November 2023. Discussed that I could temporaril y provide her with pain medication as she was on prior to however I do not want this to be our long-term plan. She understand s this and prefers to start her ADHD medication first and then we can discuss pain medication at her 1 month follow-up. We will coordinate to get her into [facility] sooner than later. Prolapsed lumbar intervertebral disc 578204709 M51.26 See above. [id number] SABINA BARBA [facility] [address] [place] [address] 02/22/2024 11:34:57 02/22/2024 12:27:17 Attention deficit hyperactivity disorder 464275601 F90.9 Continue Adderall 40 mg XR daily. Doing well on this dosing for now. She will follow-up as planned in office in 3 months sooner if any concerns. Low back pain 335718021 M54.50 oxycodone 10mg tabs given last 02/11/24-- two tabs twice per day as needed for worst pain 14 day supply. discussed I will continue this until she has interventi on with spine clinic.ref ill would be due 02/25/24. 28 day supply sent today. follow up in office for check in in person for pain and adhd in 3 months, sooner if concerns.c ontract and urine testing at next visit [id number] ROSANGELA SANON, SABINA [facility] [address] [place] [address] 05/09/2024 13:36:39 05/09/2024 15:10:17 Attention deficit hyperactivity disorder 382987118 F90.9 Continue Adderall 40 mg XR daily. Doing well on this dosing for now. She will follow-up as planned in office in 3 months sooner if any concerns.c ontract and urine drug screen today Prolapsed lumbar intervertebral disc 562893959 M51.26 continue to see [facility]. follow up with me in 3 months here and we will discuss ongoing pain control and follow up Low back pain 215396323 M54.50 still having severe back pain. has follow up for spine injection with [facility] on 06/08/24. see below.due for oxycodone refill 05/11/24. urine drug screen appropriat e. udated contract signed. Opioid dependence 989418 00 F11.20 Discussed chronic use of oxycodone not ideal. She understand s this. Advised we are going to slowly decrease quantity of oxycodone use and she will follow-up with pain and spine clinic for injections and possible surgery if injections not helpful. She will decrease down from 20 mg 3 times a day to alternatin g days 20 mg 3 times a day 20 mg twice a day. This is a quantity of 3520 mg tablets for 14 days or quantity of 70 20 mg tablets for 28 days. Depending on pharmacy supply will sometimes need to send in 14 day RX.Advised that each month we will go down by another dose. So next month will decrease total qty to 56 for 28 days to see if can tolerate. Missed period 65270907 N 92.5 negative test. will restart her depo provera [facility] as she had been on these before. However, discussed with her there are definitely better options available. She will look into these and let me know if starts something else Anxiety disorder 5065844 06 F41.9 escitalopr am 10mg restart. Did well on this in past prior to . would like to restart. Feeling overwhelme d and anxious again with life stressors. Will have her start the low-medium dose at 10mg. She used to be on 20mg. She will let me know if needs increase after one month.has follow up with me in office in 3 months. Health Concerns Section Related Observation LastModified by Organization Detai ls LastModified Time None Recorded Concern Status LastModified by Organization Details LastModified Time None Recorded Advance Directives Directive None Recorded Payers Encounter Date Sequence Insurance Name Policy Number Policy Campbell Covered Member ID Campbell Member ID Guarantor Name 01/13/2024 1 [facility] (MEDICAID) Raven Koehler [id number] Raven Koehler 02/01/2024 1 [facility] (MEDICAID) Raven Koehler [id number] Raven Koehler 02/22/2024 1 [facility] (MEDICAID) Raven Koehler [id number] Raven Koehler 05/09/2024 1 [facility] (MEDICAID) Raven Koehler [id number] Raven Koehler Notes Date Note Type Note Provider Name and Address Organization Details Recorded Time 01/13/2024 text/html Raven is a 33-year-old female who presents with sore throat that started yesterday with temperature as high as 101 for which she took Tylenol was helpful. Her son and his father recently tested positive for strep and just completed their round of antibiotics. She has not had nausea or vomiting. She has been able to stay hydrated despite sore throat. She is currently breast-feeding her 2-week-old infant. [address], [place], [address], [facility]. 01/13/2024 11:14:43 02/01/2024 text/html Raven is a pleas ant 33 year old female here today for a 6 month follow up/check in.Delivered a baby girl - Estefani- on 12/25/23. .She is currently breast-feeding but is frustrated and tired and wants to restart medication she was on prior to for her back pain as well as for ADHD and mood. Previous to she was on oxycodone 3 times daily up to 20 mg for chronic back pain. Was seeing [facility]. Last visit with them was November 2023. She was at that time. She reports that her back pain is excruciating and harder now that she is more mobile and needing to carry a baby around and do more. Also has her son Roberto Carlos at home who is 6.Was on escitalopram 20 mg daily prior to . Both for anxiety and mood stabilization. She feels her attention deficit hyperactivity is more bothersome to her currently. Cannot focus. Feels overwhelmed with 2 children at home now. Is wondering about starting ADHD medication again. Used to be on Concerta 36 mg a day. [place] it was helpful but almost that it was not strong enough. Again, feels her mental health will take precedent over breast-feeding and understands that these medications may not be supportive for breast-feeding or for milk supply. ROSANGELA SANON, SABINA [address], [place], [address], [facility]. 02/12/2024 23:19:48 02/22/2024 text/html Raven is a pleas ant 33-year-old female here today for 1 month follow-up to ADHD discussion as well as chronic low back pain discussion. Recent delivery delivered a baby girl Estefani. Stopped breast-feeding prior to medications discussed below. Adderall XR increased to 40mg (pt was given #28 of the 20mg capsules 02/01/24).feels increased concentration and no negative side effects. better than the 20mg XR daily. Denies any negative side effects. Denies jitteriness, twitching, palpitations, nausea or decreased appetite. Lower back pain/chronic:oxycoc done short script (scheduled with [facility] for chronic LBP?) . Had been on oxycodone in the past for her back pain as she had no relief with any other medication nor intervention. She then became and has been managing without medication for the past 12 months or so. She reports that her back pain is excruciating and prevents her from doing a lot of things she would like to do. Has been using heat, Tylenol, massage, stretching, topicals. Nothing seems effective. Is finding it hard to take care of her 2 children with the pain being intolerable. Denies any weakness in her legs. Denies any loss of bowel or bladder control. getting some relief with oxycodone twice daily for now. follow up with [facility] on 03/24/24. possible epidural injection per last plan with spine [address], [place], [address], [facility]. 02/28/2024 14:58:27 05/09/2024 text/html Raven is a pleas ant 33 year old female here today for 1 month follow up to ADHD medication monitoring and chronic lower back pain on opioid management awaiting spine center intervention.Lower back pain, still rated pain at a 8/10 upon awakening and then takes 10 or 20mg of oxycodone then again around 1pm to 3pm because she can't function otherwise. 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 some days only takes 20mg. No negative side effects.Has 2 children and partner. Stress at home with new baby girl ,Estefani, and her 8 year old son, Roberto Carlos with autism.Wants to restart her medication for anxiety/mood. Did well on escitalopram prior to . Was on 20mg but would like to start lower dosing.Can't remember her last period. Was for a while after delivering but stopped. has not yet gotten her dep[facility] shot at [facility]. wondering about other control options in future. [address], [place], [address], [facility], [facility]. 05/16/2024 23:43:43 OBGyn Episode No OBEpisode recorded.
--- OUTSIDE RECORDS SUMMARY | 2024-12-20 20:31 | XMS_ITS | Clinical Summary ---
Author Organization [facility] Address [address] [place] [address] Care Team Providers Care Icebox Worker Name Role Phone Unknown, Provider Primary Care Provider Unava ilable Social History Tobacco Use Types Packs/Day Years Used Date Smoking Tobacco: Never Assessed Comments Unknown Sex and Gender Information Value Date Recorded Sex Assigned at Not on file Legal Sex Female 12:26 EDT Gender Identity Not on file Sexual Orientation Not on file Plan of Treatment Health Maintenance Due Date Last Done Comments Hepatitis B Vaccine (1 of 3 - 19+ 3-dose series) 11/30 COVID-19 Vaccine ( season) 2024 Hepatitis C Screen Completed 06/26/2023 Procedures Procedure Name Priority Date/Time Associated Diagnosis Comments HEPATITIS C AB W REFLEX TO HCV RNA BY PCR Today 06/26/2023 12:17 EDT from Last 3 Months or Most Recently Relevant to Health Maintenance Results * HEPATITIS C AB W REFLEX TO HCV RNA BY PCR (06/26/2023 12:17 EDT) Hep C Antibody Negative Negative 06/29/2023 9:56 EDT [facility] Blood VENOUS BLOOD / Unknown 06/26/2023 12:17 EDT 06/26/2023 21:50 EDT us Provider Outr Resulting Lab CHEMISTRY & BLOOD GA S ORDERABLES Final Result [facility] [address] [place] [address] from Last 3 Months or Most Recently Relevant to Health Maintenance Care Teams Icebox Worker Relationship Specialty Start Date End Date Unknown, Provider, PCP - General 05/13/16
--- OUTSIDE RECORDS SUMMARY | 2024-12-20 20:31 | XMS_ITS | Continuity of Care Document ---
Author Organization [facility], Isabell Manuel Address [address] [place] [address] Assessment No assessment recorded. Plan of Treatment Reminders Order Date Submit Date Provider Last Modified By Organization Details Last Modified Time Details Appointments None record ed. Lab None record ed. Referral None record ed. Procedures None record ed. Surgeries None record ed. Imaging None record ed. Medication Orders None record ed. Patient TargetsNo targets recorded. Patient InstructionsNo instructions recorded. Reason for Referral None Reported. Results Created Date Observation Date Name Description Value Unit Range Abnormal Flag Note LastModifiedBy Organization Detail LastModifiedTime 10/27/20 24 10/28/2024 elect rocar diogr am No observ ation record ed. [email or web address] [address], [place], [address], 10/28/2024 14:36:21 11/02/20 elect rocar diogr am No observ ation record ed. [email or web address] [address], [place], [address], 11/02/2024 12:21:55 Result Notes None recorded. Problems Name Problem SNOMED Code Status Onset Date Resolution Date Notes Provider Name and Address Organization Details Recorded Time Hypertensive disorder 68586201 Active 2023 Isabell Manuel APRN, GLOBAL TECHNICAL WRITER-C, PMHNP-C, DNP [address] [facility] [place], [address] , [facility] 12:48:06 Essential hypertension 13137805 Active 2024 Isabell Manuel APRN, GLOBAL TECHNICAL WRITER-C, PMHNP-C, DNP [address] [place], [address], [facility] 5 12:16:50 Strain of muscle and/or tendon of thigh 921240172 Active 2024 Isabell Manuel APRN, GLOBAL TECHNICAL WRITER-C, PMHNP-C, DNP [address] [place], [address], [facility] 5 12:26:42 Attention deficit hyperactivity disorder 073783440 Active [address] [place], [address], [facility] 4 09:16:34 Insomnia 024576769 Active [address] [place], [address], [facility] 4 09:16:44 Low back pain 687932247 Active [address] [place], [address], [facility] 4 09:17:00 Generalized anxiety disorder 15086103 Active [address] [place], [address], [facility] 4 09:17:09 Degeneration of lumbar intervertebral disc 37930516 Active [address] [place], [address], [facility] 4 09:17:40 Increased blood pressure 50163976 Active 2023 Isabell Manuel APRN, GLOBAL TECHNICAL WRITER-C, PMHNP-C, DNP [address] [place], [address], [facility] 4 14:34:49 Problem Notes None recorded. Medical Equipment None Reported. Allergies Allergen ID Allergen Name Allergen Category Reaction Reaction Severity Criticality Documentation Date Start Date Code Code System Note Provider Name and Address Organization Details Recorded Time 7 Product containin g penicilli n and antibioti c (product) medicatio n hives Not available Not available 10/27/2024 88445 [address] [place], [address], [facility] 4 09:15:44 8 acetamino phen / hydrocodo ne medicatio n nausea Not available Not available 10/27/2024 57807 [address] [place], [address], [facility] 4 09:16:05 9 amoxicill in medicatio n hives Not available Not available 10/27/2024 [address] [place], [address], [facility] 4 09:16:14 Medications Name Sig Start Date Stop Date Status Note LastModified by Organization Details LastModified Time clindamycin HCl 300 mg capsule TAKE ONE CAPSULE BY MOUTH EVERY 8 HOURS FOR 7 DAYS 11/02 completed Not Available Not Available Not Available lisinopril 20 mg tablet TAKE ONE TABLET BY MOUTH EVERY DAY active Not Available Not Available No t Available dextroamphe tamine-amph etamine ER 20 mg 24hr capsule,ext end release TAKE ONE CAPSULE BY MOUTH EVERY DAY FOR ADHD active Not Available Not Available No t Available baclofen 10 mg tablet TAKE ONE TABLET BY MOUTH FOUR TIMES A DAY NEEDED FOR PAIN active Not Available Not Available No t Available cephalexin 500 mg capsule TAKE ONE CAPSULE BY MOUTH TWICE A DAY FOR 10 DAYS 11/02 completed Not Available Not Available Not Available ibuprofen 600 mg tablet TAKE 1 TABLET BY MOUTH EVERY 6 HOURS NEEDED active Not Available Not Available No t Available methylpredn isolone 4 mg tablets in a dose pack TAKE DIRECTED ON PACKAGING 11/02 completed Not Available Not Available Not Available escitalopra m 10 mg tablet Take 1 tablet every day by oral route in the morning. 11/23 completed Not Available Not Available Not Available escitalopra m 20 mg tablet Take 1 tablet every day by oral route for 90 days. 2024 active Not Available Not Available Not Avai lable oxycodone 20 mg tablet TAKE ONE TABLET BY MOUTH THREE TIMES A DAY active Not Available Not Available No t Available oxycodone 10 mg tablet TAKE TWO TABLETS BY MOUTH THREE TIMES A DAY NEEDED +MAX 6 TABLETS PER DAY+ 11/02 completed Not Available Not Available Not Available naloxone 4 mg/actuatio n nasal spray INSTILL 1 SPRAY INTO ONE NOSTRIL DIRECTED NEEDED FOR RESPIRATO RY DIFFICULT Y DUE TO ACCIDENTA L OPIOID OVERDOSE active Not Available Not Available No t Available baclofen 5 mg tablet TAKE ONE TABLET BY MOUTH THREE TIMES A DAY 11/02 completed Not Available Not Available Not Available Vitals Date Recorded Body height Heart rate Systolic blood pressure Diastolic blood pressure Provider Name and Address Organization Details Last Updated DateTime 10/28/2024 175.26 cm 66 /min 140 mm[Hg] 82 mm[Hg] [address], [place], [address] , [facility] 10/28/2024 13:16:21 Social History None recorded. Functional Status None recorded. Mental Status None recorded. Family History Nothing Reported. Medical History No medical history recorded. Gynecological HistoryNo gynecological history recorded. Obstetrics History GPAL:G 0 P 0 0 0 0 Past Encounters Encounter ID Performer Location Encounter Start Date Encounter Closed Date Diagnosis/Indication Diagnosis SNOMED-CT Code Diagnosis ICD10 Code Diagnosis Note [id number] Isabell Manuel, ASSEMBLER FOR [employer] OVER MACHINE, GLOBAL TECHNICAL WRITER-C, PMHNP-C, DNP [address] [place] [address] 10/27/2024 13:40:08 10/27/2024 14:30:55 Disorders of attention and motor control 403732108 F90.0 Prescribe 30 mg Adderall (amphetami ne/dextroa mphetamine ) with 20 mg extended release in the morning and 10 mg midafterno on. Advise not to take the 10 mg dose past 3 PM. Monitor response to adjusted dosage. Increased blood pressure 84515422 R03.0 Recheck BP x 24-[address] [place] [address] 10/28/2024 13:13:44 10/28/2024 13:22:17 Therapeutic drug monitoring assay 64855956 Z51.81 EKG and BP checked today to clear Raven for her adderall prescripti on. Provider will assess the EKG and call the patient with results. BP today was 140/82 manually. Raven reports that she has never had high blood pressure. Health Concerns Section Related Observation LastModified by Organization Gwendolyn feliciano LastModified Time None Recorded Concern Status LastModified by Organization Details LastModified Time None Recorded Payers Encounter Date Sequence Insurance Name Policy Number Policy Campbell Covered Member ID Campbell Member ID Guarantor Name 10/28/2024 1 [facility] (MEDICAID) Raven Koehler [id number] Raven Koehler OBGyn Episode No OBEpisode recorded.
--- OUTSIDE RECORDS SUMMARY | 2024-12-20 20:31 | XMS_ITS | Encounter Summary ---
Author Organization [facility] Address [address] [place] [address] Care Team Providers Care Speech And Language Tutor Name Role Phone Unknown, Provider Primary Care Provider Unava ilable Encounter Details Date Type Department Care Team (Late st Contact Info) Description 05/12/2016 Results Only [facility] [phone] Christelle Gomez CNM [address] [place], [place] [phone] Social History Tobacco Use Types Packs/Day Years Used Date Smoking Tobacco: Never Assessed Comments Unknown Sex and Gender Information Value Date Recorded Sex Assigned at Not on file Legal Sex Female 12:26 EDT Gender Identity Not on file Sexual Orientation Not on file documented as of this encounter Plan of Treatment Not on file documented as of this encounter Procedures Procedure Name Priority Date/Time Associated Diagnosis Comments PAP TEST- RESULT ONLY Routine 05/12/2016 0:00 EDT documented in this encounter Results * PAP TEST- RESULT ONLY (05/12/2016 0:00 EDT) Pathology Report: CYTOPATHOLOGY REPORT Reports generated via electronic interface contain original data; however they are lacking the format of the original report. Caution should be taken when reading/interpreti ng unformatted reports. Name: ? BELA KOEHLER ? Accession #: ? [id number] : ? 1990 (Age: 25) ??F ?Collect Date: ? 05/12/2016 Location: ? [facility] ? Receive Date: ? 05/13/2016 Provider: ?CHRISTELLE GOMEZ CNM Copy to: ?YONATHAN VALDEZ MD ? Specimen/Source: ?Pap Test, Cervix, ThinPrep Imaging System with manual evaluation Last Menstrual Period: ? 03/2016 Menstrual/Pregnanc y Status: ? SPECIMEN ADEQUACY ? Satisfactory for Evaluation - transformation zone component present GENERAL CATEGORIZATION ? Negative for Intraepithelial Lesion or Malignancy ? Document reviewed and electronically signed by: ? TORY Mac(ASCP) ? Report Date: ??05/23/2016 13:59 End of Report [facility] 05/12/2016 05/13/2016 us Christelle Gomez CNM PATHOLOGY ORDERABLES Final Resul t [facility] [address] [place] [address] documented in this encounter Visit Diagnoses Not on filedocumented in this encounter Care Teams Speech And Language Tutor Relationship Specialty Start Date End Date Unknown, Provider, PCP - General 05/13/16 documented as of this encounter
--- OUTSIDE RECORDS SUMMARY | 2024-12-20 20:31 | XMS_ITS | Encounter Summary ---
Author Organization [facility] Address [address] [place] [address] Care Team Providers Care Chief Human Resources Officer Name Role Phone Unknown, Provider Primary Care Provider Unava ilable Encounter Details Date Type Department Care Team (Late st Contact Info) Description 09/07/2017 Results Only [facility] [phone] [address] [place] [id number] Social History Tobacco Use Types Packs/Day Years [...] Diagnosis Comments PAP TEST- RESULT ONLY Routine 09/07/2017 0:00 EDT documented in this encounter Results * PAP TEST- RESULT ONLY (09/07/2017 0:00 EDT) Pathology Report: CYTOPATHOLOGY REPORT Reports generated via electronic interface contain original data; however they are lacking the format of the original report. Caution should be taken when reading/interpreti ng unformatted reports. Name: ? BELA KOEHLER ? Accession #: ? [id number] : ? 1990 (Age: 26) ??F ?Collect Date: ? 09/07/2017 Location: ? [facility] ? Receive Date: ? 09/08/2017 Provider: ?ROSI MORENO INSURANCE ATTORNEY Copy to: ?YONATHAN VALDEZ MD ? Specimen/Source: ?Pap Test, Cervix, ThinPrep Imaging System with manual evaluation Last Menstrual Period: ? Hormonal/Contracep tive Status: ? Depo-Provera ? SPECIMEN ADEQUACY ? Satisfactory for Evaluation - transformation zone component present GENERAL CATEGORIZATION ? Negative for Intraepithelial Lesion or Malignancy ? Document reviewed and electronically signed by: ? Niharika Ford [facility](ASCP) ? Report Date: ??09/20/2017 06:54 End of Report [facility] 09/07/2017 09/08/2017 us Rosi Moreno INSURANCE ATTORNEY PATHOLOGY ORDERABLES Final R esult [facility] [address] [place] [address] documented in this encounter Visit Diagnoses Not on filedocumented in this encounter Care Teams Chief Human Resources Officer Relationship Specialty Start Date End Date Unknown, Provider, PCP - General 05/13/16 documented as of this encounter
--- OUTSIDE RECORDS SUMMARY | 2024-12-20 20:31 | XMS_ITS | Continuity of Care Document ---
Author Organization [facility] Address [address] [place] [address] Care Team Providers Care Photographer Apprentice Lithographic Name Role Phone RASHMI SHAW APRN Primary Care Physician [phone] Encounter [facility] FIN NBR [id number] Date(s): 06/28/24 - 06/28/[address] [address]- Discharge Disposition: Home or Self Care Attending Physician: POLO Benites Admitting Physician: POLO Benites Referring Physician: POLO Benites Allergies, Adverse Reactions, Alerts Substance Reaction Severity Status amoxicillin Hives Moderate Active penicillin Hives Moderate Active Vicodin Nausea Mild Active Assessment and Plan Future Appointments Medications Adderall 0 Refill(s) Start Date: 03/24/24 Status: Ordered baclofen 5 mg oral tablet 5 mg = 1 tab, Oral, TID, # 90 tab, 0 Refill(s), Pharmacy: [facility], 175.26, cm, 06/28/24 9:06:00 EDT, Height, 71.21, kg, 06/28/24 9:10:00 EDT, Weight Dosing Start Date: 06/28/24 Status: Ordered Depo-Provera Contraceptive See Instructions, 0 Refill(s) Start Date: 02/23/23 Status: Ordered Medrol 4 mg oral tablet 1 packets, Oral, Daily, as directed on package labeling, # 21 tab, 0 Refill(s), Pharmacy: [facility], 175.26, cm, 06/28/24 9:06:00 EDT, Height, [...] Confirmed Active Lumbar foraminal stenosis Confirmed Active Results Radiology Reports * Exam Date Time Procedure Performing Provider Status 06/28/24 12:00 PM XR Spine Lumbosacral 4+ Views [place]; Tasha (Verified) Notes: (XR Spine Lumbosacral 4+ Views) Reason For Exam: Lumbar spondylolisthesis XR Spine Lumbosacral 4+ Views EXAM DESCRIPTION: XR Spine Lumbosacral 4+ Views 06/28/2024 INDICATION: LUMBAR SPONDYLOLISTHESIS TECHNIQUE: AP and lateral views of the lumbar spine including lateral views with voluntary flexion/extension, 4 views. COMPARISON: Routine lumbar spine series from 03/20/2023 IMPRESSION: Transitional vertebral segment at the lumbosacral junction which appears to reflect a partially lumbarized S1 segment. This will be labeled S1 for purposes of consistency with the previous study. No acute fracture. Grade 1 spondylolisthesis at L5-S1 as described previously. Lumbar lordosis is otherwise normal in the neutral position. Mild levoscoliosis as described previously. Grade 1 anterolisthesis at L3-4 and L4-5 with voluntary flexion implying mild instability. Otherwise views with voluntary flexion/extension demonstrate no evidence of significant instability. SI joints appear symmetric. JOB #: [id number] Final Signed by: Wade Garcia MD Signed (Electronic Signature): 06/28/2024 1:38 pm Social History Social History Type Response Tobacco Former tobacco user Tobacco Use:. Sex Patient Care team information Care Team Personnel Name: RASHMI SHAW APRN Position: No Access Member Role: Primary Care Physician Address: Address: [facility] [address] [place] [address]- Care Team Related Persons Name: SABRINA KERR Address: Home [address] [place], [place] [id number] [facility]
--- OUTSIDE RECORDS SUMMARY | 2024-12-20 20:31 | XMS_ITS | Encounter Summary ---
Author [place] [address] Care Team Providers Care Psychologist Engineering Name Role Phone Gus Velasco MD Primary Care Provider [phone] Encounter Details Date Type Department Care Team (Late st Contact Info) Description 04/06/2024 3:35 PM EDT Ancillary Procedure Radiology Library at [facility] [place] [address] Adis Ambriz MD [facility] [place] [address] Social History Tobacco Use Types Packs/Day Years Used Date Smoking Tobacco: Former Cigarettes Smokeless Tobacco: Former Alcohol Use Standard Drinks/Week Comments Not Currently 0 (1 standard drink = 0.6 oz pur e alcohol) Comments Yes Sex and Gender Information Value Date Recorded Sex Assigned at Not on file Gender Identity Not on file Sexual Orientation Not on file documented as of this encounter Plan of Treatment Not on file documented as of this encounter Procedures Procedure Name Priority Date/Time Associated Diagnosis Comments FILM LIBRARY STORAGE ONLY MR SPINE Routine 04/06/2024 3:35 PM EDT documented in this encounter Results * Film Library- Storage Only MR Spine (04/06/2024 3:35 PM EDT) 06/21/2024 4:34 PM EDT Narrative RAD - 06/21/2024 4:34 PM EDT This exam is auto-finalizing. It's purpose is for storage only. Adis Ambriz MD IMG FILM LIBRARY ORD ERABLES [facility] [place], [place] documented in this encounter Visit Diagnoses Not on filedocumented in this encounter Care Teams Psychologist Engineering Relationship Specialty Start Date End Date Gus Velasco MD [address] [place] [address] PCP - General Internal Medicine 07/02/23 07/07/24 documented as of this encounter
--- OUTSIDE RECORDS SUMMARY | 2024-12-20 20:31 | XMS_ITS | Encounter Summary ---
[place] [address] Care Team Providers Care Mh Teacher Name Role Phone Gus Velasco MD Primary Care Provider [phone] Encounter Details Date Type Department Care Team (Late st Contact Info) Description 04/06/2024 Interpretation Only Radiology Library at [facility] [place] [address] Adis Ambriz MD [facility] [place] [address] Social History Tobacco Use Types Packs/Day Years [...] Ambriz MD IMG FILM LIBRARY ORD ERABLES Performing Organization Address City/State/[facility] Co de Phone Number [place], [place] documented in this encounter Visit Diagnoses Not on filedocumented in this encounter Care Teams Mh Teacher Relationship Specialty Start Date End Date Gus Velasco MD [address] [place] [address] PCP - General Internal Medicine 07/02/23 07/07/24 documented as of this encounter
--- OUTSIDE RECORDS SUMMARY | 2024-12-20 20:31 | XMS_ITS | Encounter Summary ---
Author Organization [facility] Address [address] [place] [address] Care Team Providers Care Iv Technician Name Role Phone Unknown, Provider Primary Care Provider Unava ilable Encounter Details Date Type Department Care Team (Late st Contact Info) Description 05/02/2019 Results Only [facility] [phone] [place] [id number] Social History Tobacco Use Types Packs/Day Years [...] Diagnosis Comments PAP TEST- RESULT ONLY Routine 05/02/2019 0:00 EDT documented in this encounter Results * PAP TEST- RESULT ONLY (05/02/2019 0:00 EDT) Pathology Report: CYTOPATHOLOGY REPORT Reports generated via electronic interface contain original data; however they are lacking the format of the original report. Caution should be taken when reading/interpreti ng unformatted reports. Name: ? BELA KOEHLER ? Accession #: ? [id number] ? : ? 1990 (Age: 28) ??F ?Collect Date: ? 05/02/2019 ? Location: ? [facility] ? Receive Date: ? 05/03/2019 ? Provider: ROSI MORENO MAGNETIC PROSPECTOR Copy to: YONATHAN VALDEZ MD ? Final Report SPECIMEN ADEQUACY ? Satisfactory for Evaluation - transformation zone component present GENERAL CATEGORIZATION ? Negative for Intraepithelial Lesion or Malignancy INTERPRETATION ? Reactive cellular changes associated with inflammation present (includes repair). Hormonal/Contracep tive status: Depo-Provera Specimen/Source: ??Pap Test, Cervix, ThinPrep Imaging System with manual evaluation Document reviewed and electronically signed by: ? VINOD MARCUS MD ? Report ??Date: 05/05/2019 17:04 HPV with Pap Test ? Date Ordered: ? 05/05/2019 ? Status: ?? Signed Out ?Date Complete: ? 05/06/2019 ? By: ??System Interface ? Date Reported: ? 05/06/2019 ? Interpretation RESULT: Negative for HPV. No E6 or E7 mRNA is detected from HPV types 16,18,31,33,35, 39,45,51,52,56,58, 59,66, and 68 by senior data warehouse developer mediated amplification. Comments Document reviewed and electronically signed by: ? System Interface ? Report date: 05/06/2019 By the signature above, the attending physician certifies that he/she has personally conducted a gross and/or microscopic examination of the described specimens and rendered or confirmed the above diagnosis. End of Report [facility] 05/02/2019 05/03/2019 us Rosi Moreno MAGNETIC PROSPECTOR PATHOLOGY ORDERABLES Final R esult [facility] [address] [place] [address] documented in this encounter Visit Diagnoses Not on filedocumented in this encounter Care Teams Iv Technician Relationship Specialty Start Date End Date Unknown, Provider, PCP - General 05/13/16 documented as of this encounter
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
--- OUTSIDE RECORDS SUMMARY | 2024-12-20 20:31 | XMS_ITS | Encounter Summary ---
Author Organization [facility] Address [facility] [place] [address] Care Team Providers Care Box Sealing Machine Operator Name Role Phone Unknown Primary Care Provider Unavailabl e Encounter Details Date Type Department Care Team (Late st Contact Info) Description 03/20/2023 12:20 PM EDT Ancillary Procedure Radiology Library at [facility] [place] [address] Adis Ambriz MD [facility] [place] [address] Social History Tobacco Use Types Packs/Day Years Used Date Smoking Tobacco: Never Assessed Sex and Gender Information Value Date Recorded Sex Assigned at Not on file Gender Identity Not on file Sexual Orientation Not on file documented as of this encounter Plan of Treatment Not on file documented as of this encounter Procedures Procedure Name Priority Date/Time Associated Diagnosis Comments FILM LIBRARY STORAGE ONLY DX SPINE Routine 03/20/2023 12:20 PM EDT documented in this encounter Results * Film Library- Storage Only DX Spine (03/20/2023 12:20 PM EDT) 06/21/2024 4:34 PM EDT Narrative [facility] - 06/21/2024 4:34 PM EDT This exam is auto-finalizing. It's purpose is for storage only. Adis Ambriz MD IMG FILM LIBRARY ORD ERABLES [facility] [place] documented in this encounter Visit Diagnoses Not on filedocumented in this encounter Care Teams Box Sealing Machine Operator Relationship Specialty Start Date End Date Unknown None PCP - General 11/07/10 07/01/23 documented as of this encounter
--- OUTSIDE RECORDS SUMMARY | 2024-12-20 20:31 | XMS_ITS | Encounter Summary ---
Author Organization [facility] Address [address] [place] [address] Care Team Providers Care Para Machine Operator Name Role Phone Unknown, Provider Primary Care Provider Unava ilable Encounter Details Date Type Department Care Team (Late st Contact Info) Description 06/26/2023 Lab Requisition [facility] Pathology & Laboratory Medicine - [address] [id number] Outr Resulting Lab, Provider Social History Tobacco Use Types Packs/Day Years [...] Procedure Name Priority Date/Time Associated Diagnosis Comments HOLD SST Today 06/26/2023 12:17 EDT RUBELLA IGG ANTIBODY Today 06/26/2023 12:17 EDT VARICELLA IGG ANTIBODY Today 06/26/2023 12:17 EDT documented in this encounter Results * HOLD SST (06/26/2023 12:17 EDT) Hold Hold 06/26/2023 23:01 EDT [facility] Blood VENOUS BLOOD / Unknown 06/26/2023 12:17 EDT 06/26/2023 21:52 EDT us Provider Outr Resulting Lab LAB INFO SERVICE AND SUPPORT & PHONE RESULT Final Result [facility] [address] [place] [address] * VARICELLA IGG ANTIBODY (06/26/2023 12:17 EDT) Varicella IgG Ab Positive See Note 06/29/2023 11:08 EDT [facility] Comment:Presence of detectab le Varicella Zoster virus IgG antibodies. Blood VENOUS BLOOD / Unknown 06/26/2023 12:17 EDT 06/26/2023 21:50 EDT us Provider Outr Resulting Lab IMMUNOLOGY AND SEROL OGY ORDERABLES Final Result [facility] [address] [place] [address] * RUBELLA IGG ANTIBODY (06/26/2023 12:17 EDT) Rubella IgG Ab Positive See Note 06/29/2023 11:11 EDT [facility] Comment:Positive for IgG ant ibodies to Rubella virus. Blood VENOUS BLOOD / Unknown 06/26/2023 12:17 EDT 06/26/2023 21:50 EDT us Provider Outr Resulting Lab CHEMISTRY & BLOOD GA S ORDERABLES Final Result Performing Organization Address City/[facility]/ZIP Co de Phone Number [facility] [address] [place] [address] documented in this encounter Visit Diagnoses Not on filedocumented in this encounter Care Teams Para Machine Operator Relationship Specialty Start Date End Date Unknown, Provider, PCP - General 05/13/16 documented as of this encounter
--- OUTSIDE RECORDS SUMMARY | 2024-12-20 20:31 | XMS_ITS | Encounter Summary ---
Author Organization [place] [address] Care Team Providers Care Vacation Planner Name Role Phone Gus Velasco MD Primary Care Provider [phone] Encounter Details Date Type Department Care Team (Latest Contact Info) Description 08/21/2023 3:10 PM EDT - 08/21/2023 11:59 PM EDT Hospital [place] [address] [facility] [address] premature rupture of membranes (PPROM) with unknown onset of labor Discharge Disposition: Home Social History Tobacco Use Types Packs/Day Years Used Date Smoking Tobacco: Former Cigarettes Smokeless Tobacco: Former Alcohol Use Standard Drinks/Week Comments Not Currently 0 (1 standard drink = 0.6 oz pur e alcohol) Comments Yes Sex and Gender Information Value Date Recorded Sex Assigned at Not on file Gender Identity Not on file Sexual Orientation Not on file documented as of this encounter Medications at Time of Discharge Medication Sig Dispensed Refills Start Date End Date proGESTerone (Prometrium) 200 mg capsule Apply per vagina qhs 30 capsule 3 08/21/2023 vitamin 27 & [id number] 60 mg iron-1 mg Tablet Take 1 tablet by mouth daily. acetaminophen (TYLENOL) 325 mg Tablet Take 2 tablets by mouth every 4 hours as needed for Pain. 30 tablet 1 10/21/2016 ibuprofen (ADVIL;MOTRIN) 600 mg Tablet Take 1 tablet by mouth every 6 hours as needed for Pain. 30 tablet 12 10/21/2016 documented as of this encounter Plan of Treatment Not on file documented as of this encounter Procedures Procedure Name Priority Date/Time Associated Diagnosis Comments US OB LIMITED Routine 08/21/2023 3:40 PM EDT premature rupture of membranes (PPROM) with unknown onset of labor documented in this encounter Results * US OB Limited (08/21/2023 3:40 PM EDT) Anatomical Region Laterality Modality Pelvis, Abdomen Ultrasound 08/21/2023 3:37 PM EDT Impressions 08/21/2023 3:58 PM EDT 2nd Trimester Summary 1. Single intrauterine with a gestational age of 19w 6d based on Clinical RAS. Composite age based on the current ultrasound alone is 20w 4d. Current growth parameters are consistent with prior dating indicating normal growth. Amniotic fluid volume is subjectively normal for gestational age. 2. Cervical length ranges 2.1-2.3cm. There is no funnel or dynamic changes. 3. Low lying placenta is seen measuring 1.4 cm from the internal cervical os. Thank you for letting us participate in the care of this patient. If you are a health care provider and have any questions regarding this report, please contact the number above. For patients who have questions, please contact the health menagerie caretaker that requested your imaging first. ?Livier Mendosa, Staff Physician Electronically Signed Final Report ?? 08/21/2023 03:57 pm Narrative 08/21/2023 3:58 PM EDT OBSTETRICS REPORT ?(Signed Final 08/21/2023 03:57 pm) PATIENT INFO: ID #: ? [id number] ?: ??[birth year] (32 yrs)(F) Name: ? BELA KOEHLER ?Visit Date: 08/21/2023 03:37 pm PERFORMED BY: Performed By: ? Katie Li RDMS Attending: ?Navya HERBERT, Livier Wheeler Referred By: ?OFE MCCALL Location: ? [facility] SERVICE(S) PROVIDED: UOBLIM - Transabdominal - [place] - [id number] ?[id number] UOBTVCER - Transvaginal ??2nd Trimester - ?74418 Cervical Length - [id number] INDICATIONS: 19 weeks gestation of ?Z3A.19 Cervix length TECHNIQUE/SCAN QUALITY: Technique: ?? Transducer ID#:[id number] EVALUATION: Num Of Fetuses: ? 1 Heart Rate(bpm): ??149 Cardiac Activity: ? Observed, normal rhythm Presentation: ? Breech Placenta: ? Anterior Low lying (<2 cm) P. Cord Insertion: ?Within Normal Limits Amniotic Fluid SIM FV: ?Subjectively normal for gestational age --------- BIOMETRY: --------- BPD: ?47.8 ??mm ? G.Age: ?? 20w 3d OFD: ?63.1 ??mm HC: ?177.2 ??mm ? G.Age: ?? 20w 1d AC: ?154.5 ??mm ? G.Age: ?? 20w 4d FL: ? 35.2 ??mm ? G.Age: ?? 21w 1d HUM: ?32.6 ??mm ? G.Age: ?? 21w 0d CER: ?21.8 ??mm ? G.Age: ?? 20w 6d NFT: ? 5.2 ??mm LV: ?8.0 ??mm CM: ?3.8 ??mm CI: ?75.8 ??% ? 70 - 86 FL/HC: ? 19.9 ??% ? 16.8 - 19.8 HC/AC: ? 1.15 ?1.09 - 1.39 FL/BPD: ?73.6 ??% FL/AC: ? 22.8 ??% ? 20 - 24 Est. FW: ? 376 ??gm ?0 lb 13 oz OB HISTORY: : ?2 ? Ector: ?? 1 GESTATIONAL AGE: Clinical RAS: ??19w 6d ?RAS: ?? 01/09/24 U/S Today: ? 20w 4d ?RAS: ?? 01/04/24 Best: ?19w 6d ?? Det. By: ??Clinical RAS ? RAS: ?? 01/09/24 -------- ANATOMY: -------- Cranium: ? Within Normal Limits Cavum: ? Within Normal Limits Ventricles: ?Visualized Cerebellum: ?Visualized Face: ?Limited Views Lips: ?Not Visualized Heart: ? Not Visualized RVOT: ?Not Visualized LVOT: ?Not Visualized Diaphragm: ? Visualized Stomach: ? Visualized Abdomen: ? Visualized Abdominal Wall: ?Visualized Cord Vessels: ?3 Vessel Cord - WNL Kidneys: ? Visualized Bladder: ? Visualized Spine: ? Not Visualized CERVIX UTERUS ADNEXA: Cervix Length: ?2.1 ??cm. Closed; No change with fundal pressure Right Ovary Not visualized Left Ovary Not visualized Procedure Note Livier Mendosa MD - 08/21/2023 OBSTETRICS REPORT (Signed Final 08/21/2023 03:57 pm) PATIENT INFO: ID #: [id number] : [birth year] (32 yrs)(F) Name: BELA KOEHLER Visit Date: 08/21/2023 03:37 pm PERFORMED BY: Performed By: Katie Li RDMS Attending: Livier Mendosa MD Referred By: OFE MCCALL Location: [facility] SERVICE(S) PROVIDED: UOBLIM - Transabdominal - [place] - [id number] UOBTVCER - Transvaginal 2nd Trimester - [id number] Cervical Length - [id number] INDICATIONS: 19 weeks gestation of Z3A.19 Cervix length TECHNIQUE/SCAN QUALITY: Technique: Transducer ID#:[id number] EVALUATION: Num Of Fetuses: 1 Heart Rate(bpm): 149 Cardiac Activity: Observed, normal rhythm Presentation: Breech Placenta: Anterior Low lying (<2 cm) P. Cord Insertion: Within Normal Limits Amniotic Fluid SIM FV: Subjectively normal for gestational age --------- BIOMETRY: --------- BPD: 47.8 mm G.Age: 20w 3d OFD: 63.1 mm HC: 177.2 mm G.Age: 20w 1d AC: 154.5 mm G.Age: 20w 4d FL: 35.2 mm G.Age: 21w 1d HUM: 32.6 mm G.Age: 21w 0d CER: 21.8 mm G.Age: 20w 6d NFT: 5.2 mm LV: 8.0 mm CM: 3.8 mm CI: 75.8 % 70 - 86 FL/HC: 19.9 % 16.8 - 19.8 HC/AC: 1.15 1.09 - 1.39 FL/BPD: 73.6 % FL/AC: 22.8 % - 24 Est. FW: 376 gm 0 lb 13 oz OB HISTORY: : 2 Ector: 1 GESTATIONAL AGE: Clinical RAS: 19w 6d RAS: 01/09/24 U/S Today: 20w 4d RAS: 01/04/24 Best: 19w 6d Det. By: Clinical RAS RAS: 01/09/24 -------- ANATOMY: -------- Cranium: Within Normal Limits Cavum: Within Normal Limits Ventricles: Visualized Cerebellum: Visualized Face: Limited Views Lips: Not Visualized Heart: Not Visualized RVOT: Not Visualized LVOT: Not Visualized Diaphragm: Visualized Stomach: Visualized Abdomen: Visualized Abdominal Wall: Visualized Cord Vessels: 3 Vessel Cord - WNL Kidneys: Visualized Bladder: Visualized Spine: Not Visualized CERVIX UTERUS ADNEXA: Cervix Length: 2.1 cm. Closed; No change with fundal pressure Right Ovary Not visualized Left Ovary Not visualized IMPRESSION 2nd Trimester Summary 1. Single intrauterine with a gestational age of 19w 6d based on Clinical RAS. Composite age based on the current ultrasound alone is 20w 4d. Current growth parameters are consistent with prior dating indicating normal growth. Amniotic fluid volume is subjectively normal for gestational age. 2. Cervical length ranges 2.1-2.3cm. There is no funnel or dynamic changes. 3. Low lying placenta is seen measuring 1.4 cm from the internal cervical os. Thank you for letting us participate in the care of this patient. If you are a health care provider and have any questions regarding this report, please contact the number above. For patients who have questions, please contact the health menagerie caretaker that requested your imaging first. Livier Mendosa, Staff Physician Electronically Signed Final Report 08/21/2023 03:57 pm Ofe Mccall MD IMG US OB ORDERABL ES documented in this encounter Visit Diagnoses Diagnosis premature rupture of membranes (PPROM) with unknown onset of labor documented in this encounter Care Teams Vacation Planner Relationship Specialty Start Date End Date Gus Velasco MD [address] [place] [address] PCP - General Internal Medicine 07/02/23 07/07/24 documented as of this encounter
--- OUTSIDE RECORDS SUMMARY | 2024-12-20 20:31 | XMS_ITS | Encounter Summary ---
[place] [address] Care Team Providers Care Curator Herbarium Name Role Phone Gus Velasco MD Primary Care Provider [phone] Encounter Details Date Type Department Care Team (Latest Contact Info) Description 08/21/2023 Travel Social History Tobacco Use Types Packs/Day Years [...] on file documented as of this encounter Visit Diagnoses Not on filedocumented in this encounter Care Teams Curator Herbarium Relationship Specialty Start Date End Date Gus Velasco MD [address] [place] [address] PCP - General Internal Medicine 07/02/23 07/07/24 documented as of this encounter
--- OUTSIDE RECORDS SUMMARY | 2024-12-20 20:31 | XMS_ITS | Data Portability ---
Author Organization [place] - [facility], Historical Import Interface Address [address] [place] [id number] Assessment Encounter Date Assessment Date Assessment LastModified by Organization Details LastModified Time 12/08/2023 12/08/2023 DOS: ??12/08/23 Tx: consult,?? Ext #1, 2, 3, 17, 32 NV: PRN concerns with ext sites, pt to return to primary dentist for comp care ?? Completed Procedures D7140 - Extraction, erupted tooth or exposed root (elevation and/or forceps removal) Teeth: 1 2 32 D7210 - Extraction, erupted tooth requiring removal of bone and/or sectioning of tooth, and including elevation of mucoperiosteal flap if indicated Teeth: 3 D7220 - Removal of impacted tooth - soft tissue Teeth: 17 D9310 - Consultation - diagnostic service provided by dentist or physician other than requesting dentist or physician ?? Referred from: ??[facility] Dental CC: A couple of my teeth on the right are bothering me.?? (points to #1, 2, 32)?? Pt. denies swelling, fever, N/V HHx: Pt is , due 01/09/23. Allergies to Penicillin/Amoxicil chance. No contraindications to dental tx, see EMR ?? BP: ??118/74? P:?84? Radio: #1, 2, 16 retained roots Inadequate arch space #17? Exam: ?? #1, 2 retained roots?? #15, 16 missing (pt states they were extracted a while ago)?? #3, 32 caries?? #17 partially erupted? Dx: ?? #1, 2 retained roots #3, 32 caries #17 STI ?? TXP?? Ext #1, 2, 3, 17, 32 ?? Informed pt of findings, tx options, risks, benefits and potential consequences of no tx which was understood. Addressed all pt? s questions and concerns. Informed consent obtained for listed TXP?? Consent forms reviewed and signed? Anesthesia:?? Lidocaine topical gel?? 10 carp 2% Lidocaine w/1:100k epi via local infiltration, IANB?? Procedure: ?? Bite block placed ?? #1, 2, 32: Elevate and deliver teeth with elevator and forceps. Sockets curetted, irrigated with NSS?? #3:?Used surgical handpiece to section tooth. Elevate and deliver tooth with elevator and forceps. Socket curetted, irrigated with NSS. ?? #17: Used 15 blade to create a single incision with distal-buccal release. Used periosteal elevator to elevate a full thickness mucoperiosteal flap buccal area. Elevate and deliver tooth with elevator, removed follicle. Socket curetted, irrigated with NSS.?Closure with 3-0 CG sutures ? No sinus communication detected?? No nerve visualized ?? All adjacent teeth intact ?? B/L pressure applied to sockets Gauze placed ?? Good hemostasis achieved? P/O instructions given written and verbally, which pt understood ?? Pain Management: 500mg acetaminophen q6h PRN pain ?? Antibiotics: clindamycin, see EHR?? Pt tolerated procedure well? Assisted by: Mike HARRINGTON , 1:09 PM. I attest that the treatment rendered today is completed and treatment met the standard of care. , 4:45 PM. [id number] Not available 12/13/2023 19:21:30 Plan of Treatment Reminders Order Date Submit Date Provider Last Modified By Organization Details Last Modified Time Details Appointments None record ed. Lab None record ed. Referral None record ed. Procedures None record ed. Surgeries None record ed. Imaging None record ed. Medication Orders None record ed. Patient TargetsNo targets recorded. Patient InstructionsNo instructions recorded. Reason for Referral None Reported. Medical Equipment None Reported. Allergies Allergen ID Allergen Name Allergen Category Reaction Reaction Severity Criticality Documentation Date Start Date Code Code System Note Provider Name and Address Organization Details Recorded Time 04047 Product containin g penicilli n and antibioti c (product) medicatio n Not available Not available Not available 12/08/2023 02340 05 SNOMED BRYAN CHE, DDS [address], [place], [address], [place] - [facility] 4 10:15:43 31485 amoxicill in medicatio n Not available Not available Not available 12/08/2023 723 RxNorm BRYAN CHE, DDS [address], [place], [address], [place] - [facility] 4 10:15:49 Medications Name Sig Start Date Stop Date Status Note LastModified by Organization Details LastModified Time clindamycin HCl 300 mg capsule TAKE ONE CAPSULE BY MOUTH EVERY 8 HOURS FOR 7 DAYS active Not Available Not Available No t Available Concerta 18 mg tablet,exten ded release TAKE ONE TABLET BY MOUTH EVERY DAY active Not Available Not Available No t Available azithromycin 250 mg tablet TAKE TWO TABLETS BY MOUTH AT ONCE ON THE FIRST DAY THEN TAKE ONE DAILY THEREAFTER active Not Available Not Available N ot Available tramadol 50 mg tablet TAKE ONE TABLET BY MOUTH AT BEDTIME FOR BACK PAIN active Not Available Not Available No t Available alprazolam 0.5 mg tablet TAKE ONE TABLET BY MOUTH EVERY DAY NEEDED active Not Available Not Available No t Available Concerta 36 mg tablet,exten ded release TAKE ONE TABLET BY MOUTH EVERY DAY active Not Available Not Available No t Available progesterone micronized 200 mg capsule TAKE ONE CAPSULE BY MOUTH EVERY DAY active Not Available Not Available No t Available gabapentin 300 mg capsule TAKE ONE CAPSULE BY MOUTH AT BEDTIME active Not Available Not Available No t Available hydroxyzine HCl 25 mg tablet TAKE 1/2 TO 1 TABLET BY MOUTH EVERY 6 HOURS NEEDED FOR ANXIETY. MAY TAKE 1 TO 2 TABLETS AT BEDTIME FOR SLEEP. MAX 6 TABLETS PER 24 HOURS active Not Available Not Available No t Available ibuprofen 600 mg tablet active Not Available Not Available Not Available medroxyproge sterone 150 mg/mL intramuscula r suspension INJECT 1ML INTO THE MSUCLE EVERY 12 WEEKS active Not Available Not Available No t Available Concerta 27 mg tablet,exten ded release TAKE ONE TABLET BY MOUTH EVERY DAY active Not Available Not Available No t Available escitalopram 10 mg tablet TAKE ONE TABLET BY MOUTH EVERY MORNING; STOP 5MG RX active Not Available Not Available Not Available escitalopram 20 mg tablet TAKE ONE TABLET BY MOUTH EVERY MORNING active Not Available Not Available No t Available escitalopram 5 mg tablet TAKE ONE TABLET BY MOUTH EVERY DAY active Not Available Not Available No t Available cholecalcife rol (vitamin D3) 1,250 mcg (50,000 unit) capsule TAKE ONE CAPSULE BY MOUTH ONCE WEEKLY FOR 12 WEEKS; THEN TRANSITION TO 2000 UNITS ONCE DAILY active Not Available Not Available No t Available oxycodone 10 mg tablet TAKE ONE TO TWO TABLETS BY MOUTH THREE TIMES A DAY NEEDED FOR WORST PAIN +MAX 5 TABLETS PER DAY+ active Not Available Not Available No t Available Narcan 4 mg/actuation nasal spray SPRAY ONE SPRAY IN ONE NOSTRIL DIRECTED NEEDED FOR RESPIRATORY DIFFICULT DUE TO ACCIDENTAL OPIOID OVERDOSE (ALTERNATE NOSTRILS) active Not Available Not Available No t Available Vitals None Recorded Social History None recorded. Functional Status None recorded. Mental Status None recorded. Family History Nothing Reported. Medical History No medical history recorded. Gynecological HistoryNo gynecological history recorded. Obstetrics History GPAL:G 0 P 0 0 0 0 Past Encounters Encounter ID Performer Location Encounter Start Date Encounter Closed Date Diagnosis/Indication Diagnosis SNOMED-CT Code Diagnosis ICD10 Code Diagnosis Note [id number] [address] [place] [address] 12/08/2023 08:42:20 12/13/2023 19:21:35 Health Concerns Section Related Observation LastModified by Organization Detai ls LastModified Time None Recorded Concern Status LastModified by Organization Details LastModified Time None Recorded Advance Directives Directive None Recorded Payers Encounter Date Sequence Insurance Name Policy Number Policy Campbell Covered Member ID Campbell Member ID Guarantor Name 12/08/2023 1 [facility] (MEDICAID) Raven Koehler [id number] Raven Koehler 12/08/2023 [employer] (MOVED TO HOLD) Raven Koehler [id number] Raven Koehler OBGyn Episode No OBEpisode recorded.
--- OUTSIDE RECORDS SUMMARY | 2024-12-20 20:31 | XMS_ITS | Encounter Summary ---
Author Organization [facility] [place] [address] Care Team Providers Care Dredge Pump Operator Name Role Phone Gus Velasco MD Primary Care Provider [phone] Encounter Details Date Type Department Care Team (Latest Contact Info) Description 08/27/2023 2:33 PM EDT - 08/27/2023 11:59 PM EDT Hospital [place] [address] [facility] [address] OBSTETRICS [place] [address] premature rupture of membranes (PPROM) with unknown [...] 30 capsule 3 08/21/2023 vitamin 27 & peqxqak-qhzj-NB 60 mg iron-1 mg Tablet Take 1 [...] Priority Date/Time Associated Diagnosis Comments US OB DETAILED MORPHOLOGY Routine 08/27/2023 3:53 PM EDT premature rupture of membranes (PPROM) with unknown onset of labor documented in this encounter Results * US OB Detailed Morphology (08/27/2023 3:53 PM EDT) Anatomical Region Laterality Modality Pelvis, Abdomen Ultrasound 08/27/2023 2:44 PM EDT Impressions 08/27/2023 3:57 PM EDT 2nd Trimester - Detailed Morphology - Summary Single intrauterine with a gestational age of 20w 5d based on Clinical RAS Composite age based on the current ultrasound alone is 21w 4d. Current growth parameters are consistent with prior dating indicating normal growth. Amniotic fluid volume is Subjectively normal for gestational age. Detailed anatomic evaluation was performed and no structural abnormalities are noted. Transvaginal ultrasound done for cervical length. Cervical length is 2.1-2.4 cm. No dynamic change with fundal pressure. Thank you for letting us participate in the care of this patient. If you are a health care provider and have any questions regarding this report, please contact the number above. For patients who have questions, please contact the health career development associate that requested your imaging first. ?Ofe Mccall, Staff Physician Electronically Signed Final Report ?? 08/27/2023 03:56 pm Narrative 08/27/2023 3:57 PM EDT OBSTETRICS REPORT ?(Signed Final 08/27/2023 03:56 pm) PATIENT INFO: ID #: ? [id number] ?: ??[birth year] (32 yrs)(F) Name: ? BELA KOEHLER ?Visit Date: 08/27/2023 02:44 pm PERFORMED BY: Performed By: ? Navarro Lawanda LATIF Attending: ?Tom HERBERT, Ofe Zurita Referred By: ?OFE MCCALL Location: ? [place] SERVICE(S) PROVIDED: [facility] - Detailed Morphology - [id number] ? [id number] UOBTVCER - Transvaginal ??2nd Trimester - ?94691 Cervical Length - [id number] INDICATIONS: 20 weeks gestation of ?Z3A.20 h/o PTB and AMA TECHNIQUE/SCAN QUALITY: Technique: ?? Transducer ID#:[id number] EVALUATION: Num Of Fetuses: ? 1 Heart Rate(bpm): ??154 Cardiac Activity: ? Observed, normal rhythm Presentation: ? Breech Placenta: ? Anterior P. Cord Insertion: ?Within Normal Limits Amniotic Fluid SIM FV: ?Subjectively normal for gestational age --------- BIOMETRY: --------- BPD: ?49.7 ??mm ? G.Age: ?? 21w 0d OFD: ?66.8 ??mm HC: ?188.5 ??mm ? G.Age: ?? 21w 1d AC: ?176.2 ??mm ? G.Age: ?? 22w 4d FL: ? 36.8 ??mm ? G.Age: ?? 21w 5d HUM: ?32.7 ??mm ? G.Age: ?? 21w 0d CER: ?21.8 ??mm ? G.Age: ?? 20w 6d NFT: ?4.92 ??mm NB: ?5.6 ??mm LV: ?5.2 ??mm CM: ?4.2 ??mm CI: ?74.4 ??% ? 70 - 86 FL/HC: ? 19.5 ??% ? 15.9 - 20.3 HC/AC: ? 1.07 ?1.06 - 1.25 FL/BPD: ?74.0 ??% FL/AC: ? 20.9 ??% ? 20 - 24 Est. FW: ? 469 ??gm ?1 lb 1 oz OB HISTORY: : ?2 ? Ector: ?? 1 GESTATIONAL AGE: Clinical RAS: ??20w 5d ?RAS: ?? 01/09/24 U/S Today: ? 21w 4d ?RAS: ?? 01/03/24 Best: ?20w 5d ?? Det. By: ??Clinical RAS ? RAS: ?? 01/09/24 TARGETED ANATOMY: Central Nervous System Calvarium/Cranial V.: ??Within Normal Limits Intracranial Monika: ? Within Normal Limits Cavum: ? Within Normal Limits Parenchyma: ?Within Normal Limits Lateral Ventricles: ?Within Normal Limits Choroid Plexus: ?Within Normal Limits Cereb./Vermis: ? Within Normal Limits Cisterna Magna: ?Within Normal Limits Midline Falx: ?Within Normal Limits Spine Cervical: ?Visualized Thoracic: ?Visualized Lumbar: ?Visualized Sacral: ?Visualized Shape/Curvature: ? Visualized Head/Neck Face: ?Within Normal Limits Lips: ?Within Normal Limits Neck: ?Within Normal Limits Nuchal Fold: ? Within Normal Limits Nasal Bone: ?Present Profile: ? Visualized Orbits/Eyes: ? Visualized Mandible: ?Visualized Maxilla: ? Visualized Thorax Thoracic Contour: ?Within Normal Limits Lungs: ? Visualized 4 Chamber View: ?Within Normal Limits Cardiac Activity: ?Normal Rhythm Rt Outflow Tract: ?Visualized Lt Outflow Tract: ?Visualized Aortic Arch: ? Visualized Ductal Arch: ? Visualized SVC: ? Visualized Cardiac [place]: ?Visualized Diaphragm: ? Visualized 3 Vessel View: ? Visualized 3 V Trachea View: ?Visualized IVC: ? Visualized Crossing: ?Visualized Abdomen Ventral Wall: ?Visualized Cord Insertion: ?Visualized Situs: ? Normal Stomach: ? Visualized Liver: ? Visualized Lt Kidney: ? Visualized Rt Kidney: ? Visualized Bladder: ? Visualized Bowel: ? Visualized Extremities Lt Humerus: ?Within Nomal Limits Rt Humerus: ?Within Normal Limits Lt Forearm: ?Within Normal Limits Rt Forearm: ?Within Normal Limits Lt Hand: ? Within Normal Limits Rt Hand: ? Within Normal Limits Lt Femur: ?Within Normal Limits Rt Femur: ?Within Normal Limits Lt Lower Leg: ?Within Normal Limits Rt Lower Leg: ?Within Normal Limits Lt Foot: ? Visualized Rt Foot: ? Visualized Other Umbilical Cord: ?3 vessel cord Genitalia: ? Female CERVIX UTERUS ADNEXA: Cervix Length: ?2.4 ??cm. No change with fundal pressure Right Ovary Size(cm) ? 1.9 ??x ?? 1.3 ?x ??1.4 ? Vol(ml): 1.8 Visualized Left Ovary Not visualized Procedure Note Ofe Mccall MD - 08/27/2023 OBSTETRICS REPORT (Signed Final 08/27/2023 03:56 pm) PATIENT INFO: ID #: [id number] : [birth year] (32 yrs)(F) Name: BELA KOEHLER Visit Date: 08/27/2023 02:44 pm PERFORMED BY: Performed By: Lawanda Mar RDMS Attending: Ofe Mccall MD Referred By: OFE MCCALL Location: [place] SERVICE(S) PROVIDED: [facility] - Detailed Morphology - [id number] UOBTVCER - Transvaginal 2nd Trimester - 54536 Cervical Length - [id number] INDICATIONS: 20 weeks gestation of Z3A.20 h/o PTB and AMA TECHNIQUE/SCAN QUALITY: Technique: Transducer ID#:5 EVALUATION: Num Of Fetuses: 1 Heart Rate(bpm): 154 Cardiac Activity: Observed, normal rhythm Presentation: Breech Placenta: Anterior P. Cord Insertion: Within Normal Limits Amniotic Fluid SIM FV: Subjectively normal for gestational age --------- BIOMETRY: --------- BPD: 49.7 mm G.Age: 21w 0d OFD: 66.8 mm HC: 188.5 mm G.Age: 21w 1d AC: 176.2 mm G.Age: 22w 4d FL: 36.8 mm G.Age: 21w 5d HUM: 32.7 mm G.Age: 21w 0d CER: 21.8 mm G.Age: 20w 6d NFT: 4.92 mm NB: 5.6 mm LV: 5.2 mm CM: 4.2 mm CI: 74.4 % 70 - 86 FL/HC: 19.5 % 15.9 - 20.3 HC/AC: 1.07 1.06 - 1.25 FL/BPD: 74.0 % FL/AC: 20.9 % 20 - 24 Est. FW: 469 gm 1 lb 1 oz OB HISTORY: : 2 Ector: 1 GESTATIONAL AGE: Clinical RAS: 20w 5d RAS: 01/09/24 U/S Today: 21w 4d RAS: 01/03/24 Best: 20w 5d Det. By: Clinical RAS RAS: 01/09/24 TARGETED ANATOMY: Central Nervous System Calvarium/Cranial V.: Within Normal Limits Intracranial Monika: Within Normal Limits Cavum: Within Normal Limits Parenchyma: Within Normal Limits Lateral Ventricles: Within Normal Limits Choroid Plexus: Within Normal Limits Cereb./Vermis: Within Normal Limits Cisterna Magna: Within Normal Limits Midline Falx: Within Normal Limits Spine Cervical: Visualized Thoracic: Visualized Lumbar: Visualized Sacral: Visualized Shape/Curvature: Visualized Head/Neck Face: Within Normal Limits Lips: Within Normal Limits Neck: Within Normal Limits Nuchal Fold: Within Normal Limits Nasal Bone: Present Profile: Visualized Orbits/Eyes: Visualized Mandible: Visualized Maxilla: Visualized Thorax Thoracic Contour: Within Normal Limits Lungs: Visualized 4 Chamber View: Within Normal Limits Cardiac Activity: Normal Rhythm Rt Outflow Tract: Visualized Lt Outflow Tract: Visualized Aortic Arch: Visualized Ductal Arch: Visualized SVC: Visualized Cardiac [place]: Visualized Diaphragm: Visualized 3 Vessel View: Visualized 3 V Trachea View: Visualized IVC: Visualized Crossing: Visualized Abdomen Ventral Wall: Visualized Cord Insertion: Visualized Situs: Normal Stomach: Visualized Liver: Visualized Lt Kidney: Visualized Rt Kidney: Visualized Bladder: Visualized Bowel: Visualized Extremities Lt Humerus: Within Nomal Limits Rt Humerus: Within Normal Limits Lt Forearm: Within Normal Limits Rt Forearm: Within Normal Limits Lt Hand: Within Normal Limits Rt Hand: Within Normal Limits Lt Femur: Within Normal Limits Rt Femur: Within Normal Limits Lt Lower Leg: Within Normal Limits Rt Lower Leg: Within Normal Limits Lt Foot: Visualized Rt Foot: Visualized Other Umbilical Cord: 3 vessel cord Genitalia: Female CERVIX UTERUS ADNEXA: Cervix Length: 2.4 cm. No change with fundal pressure Right Ovary Size(cm) 1.9 x 1.3 x 1.4 Vol(ml): 1.8 Visualized Left Ovary Not visualized IMPRESSION 2nd Trimester - Detailed Morphology - Summary Single intrauterine with a gestational age of 20w 5d based on Clinical RAS Composite age based on the current ultrasound alone is 21w 4d. Current growth parameters are consistent with prior dating indicating normal growth. Amniotic fluid volume is Subjectively normal for gestational age. Detailed anatomic evaluation was performed and no structural abnormalities are noted. Transvaginal ultrasound done for cervical length. Cervical length is 2.1-2.4 cm. No dynamic change with fundal pressure. Thank you for letting us participate in the care of this patient. If you are a health care provider and have any questions regarding this report, please contact the number above. For patients who have questions, please contact the health career development associate that requested your imaging first. Ofe Mccall, Staff Physician Electronically Signed Final Report 08/27/2023 03:56 pm Ofe Mccall MD IMG US OB ORDERABL ES documented in this encounter Visit Diagnoses Diagnosis premature rupture of membranes (PPROM) with unknown onset of labor documented in this encounter Care Teams Dredge Pump Operator Relationship Specialty Start Date End Date Gus Velasco MD [address] [address] PCP - General Internal Medicine 07/02/23 07/07/24 documented as of this encounter
--- OUTSIDE RECORDS SUMMARY | 2024-12-20 20:31 | XMS_ITS | Encounter Summary ---
[place] [address] Care Team Providers Care Technology Engineer Name Role Phone Gus Velasco MD Primary Care Provider [phone] Reason for Visit * Reason Comments Establish Care * Consultation (Routine) - Closed Specialty Diagnoses / Procedures Referred By Betty grady Referred To Contact Obstetrics and Gynecology Diagnoses Supervision of elderly multigravida, unspecified trimester , unspecified gestational age History of pre-term labor Jeanie Siu, [address] [place] [address] [facility] [employer] [address] [place] [address] Referral ID Status Reason Start Date Expiration Date V isits Requested Visits Authorized [id number] Closed Consult, Test & Treat PCP Updated and/or Approved 07/02/2023 07/01/2024 6 6 Encounter Details Date Type Department Care Team (Late st Contact Info) Description 08/21/2023 3:00 PM EDT Office Visit Obstetrics [place] [address] Ofe Mccall MD [facility] DR OBSTETRICS [place] [address] premature rupture of membranes (PPROM) with unknown onset of labor Social History Tobacco Use Types Packs/Day Years [...] on file documented as of this encounter Last Filed Vital Signs Vital Sign Reading [...] Mass Index 25 08/21/2023 2:39 PM EDT documented in this encounter Progress Notes * Jason Bullard LNA - 08/21/2023 3:00 PM EDT ____ Patient not reached, will update meds, allergies, tobacco, pharmacy, pain/depression during visit. __x__Patient reached and the following information was reviewed/obtained per protocol: __x_Confirmed patient name and date of _x__Confirmed upcoming appt _x__Reviewed medications, allergies, tobacco, pharmacy, pain/depression Confirmed has completed any pre-visit questionnaires If has not received required previsit questionnaires, send via [facility] Other information or concerns: [phone] * Ofe Mccall MD - 08/21/2023 3:00 PM EDT Diagnosis/Maternal Medicine Consult Note Bela Koehler is a 32 y.o. year old female who is at 19w6d gestation. She is seen in consultation at the request of Jeanie Siu CNM for evaluation of prior PPROM and . She was seen today for maternal- medicine consultation and ultrasound evaluation. Review of Systems Constitutional: feels well Movement: normal Contractions: none Leaking: None Bleeding: None Patient Active Problem List Diagnosis Date Noted premature rupture of membranes (PPROM) with unknown onset of labor 10/19/2016 Past Medical History: Diagnosis Date Back pain No past surgical history on file. Family History Problem Relation Age of Onset Cerebrovascular Accident Father Type 2 Diabetes Father Cerebrovascular Accident Paternal Grandfather Social History Occupational History Not on file Tobacco Use Smoking status: Former Types: Cigarettes Smokeless tobacco: Former Vaping Use Vaping Use: Never used Substance and Sexual Activity Alcohol use: Not Currently Drug use: Not Currently Types: Marijuana Sexual activity: Not on file OB History 2 Para 1 Term 1 AB Living 1 SAB IAB Ectopic Multiple 0 Live Births 1 # Outc Date GA Lbr Akhil/2nd Wgt Sex Del Anes PTL Lv 1 10/2016 31w5d 03:13 / 00:27 2.05 kg (4 lb 8.3 oz) M Vag-Spont None Yes Living 2 Current Current Outpatient Medications Medication Sig Dispense Refill vitamin 27 & oihylej-wqnj-IT 60 mg iron-1 mg Tablet Take 1 tablet by mouth daily. acetaminophen (TYLENOL) 325 mg Tablet Take 2 tablets by mouth every 4 hours as needed for Pain. 30 tablet 1 ibuprofen (ADVIL;MOTRIN) 600 mg Tablet Take 1 tablet by mouth every 6 hours as needed for Pain. (Patient not taking: Reported on 08/14/2023) 30 tablet 12 No current facility-administered medications for this visit. Allergies Allergen Reactions Penicillins Hives Ultrasound Date: 08/21/2023 Amniotic fluid volume normal Presentation breech Placenta anterior lowlying Growth appropriate for gestational age anatomy limited but unremarkable TVCL 2.1-2.3cm Physical Exam BP 128/66 Pulse 68 Temp 37.3 ??C (99.1 ??F) (Temporal) Resp 18 Ht 175.3 cm (5' 9) Wt 76.8 kg (169 lb 4.8 oz) SpO2 100% BMI 25.00 kg/m?? General: alert, well appearing, in no apparent distress HEENT: normocephalic, atraumatic Abdomen: Soft, nontender Neurologic:alert, oriented, normal speech, no focal findings or movement disorder noted Psychiatric: Affect is Appropriate. Assessment and Recommendations: 32 y.o. year old female at 19w6d weeks gestation, referred for counseling regarding AMA andhistory of PPROM/ . I spent 40 minutes in face to face time with the patient of which 80% was in direct counseling, and a total of 10 minutes in patient care reviewing records and discussing her with other consultants. We reviewed her history in detail. She has a history of PPROM and PTB at 31 weeks. We reviewed the increased risk for recurrent PTB ~ 30%. I recommended a cervix length assessment as a cervix length < 25mm in a woman with a prior prior to 24 weeks has been associated with increasedrisk for recurrence. I ordered a cervix length ultrasound today. Her cervix measured 2.1- 2.3cm without cervix funneling or dynamic change. I recommended a cervix cerclage as it has been shown to reduce the risk for periviable . We reviewed the risks and alternatives. She is reluctant to have a cerclage and needs time to consider it. I offered vaginal progesterone and reviewed that 17 OHPC is no longer FDA approved to reduce the risk for recurrent . She accepted vaginalprogesterone, prometrium 200mg capsule per vagina QHS. I recommend a follow up ultrasound in 1 weekto complete anatomy and reassess cervix length and review option for cerclage. The growth and morphology were unremarkable but limited. The placenta is low lying. I recommend a follow up ultrasound at 32 weeks to reassess the placenta location. I appreciate the opportunity to be involved in this patients care, and am available if further questions should arise. OEF MCCALL MD 08/21/2023 Cc: Jeanie Siu, LOVELY [address] [place] [address] , with copy of ultrasound report documented in this encounter Plan of Treatment Not on file documented as of this encounter Results * US OB Detailed [...] who have questions, please contact the health neurocritical care physician that requested your imaging first. ?Ofe Mccall, Staff Physician Electronically Signed Final Report ?? 08/27/2023 03:56 pm Narrative 08/27/2023 3:57 PM EDT OBSTETRICS REPORT ?(Signed Final 08/27/2023 03:56 pm) PATIENT INFO: ID #: ? [id number] ?: ??[birth year] (32 yrs)(F) Name: ? BELA KOEHLER ?Visit Date: 08/27/2023 02:44 pm PERFORMED BY: Performed By: ? Lawanda Mar RDMS Attending: ?Ofe Mccall MD Referred By: ?OFE MCCALL Location: ? [place] SERVICE(S) PROVIDED: [facility] - Detailed Morphology - [id number] ? [id number] UOBTVCER - Transvaginal ??2nd Trimester - ?30257 Cervical Length - [id number] INDICATIONS: 20 weeks gestation of ?Z3A.20 h/o [...] ?74.0 ??% FL/AC: ? 20.9 ??% ? Est. FW: ? 469 ??gm ?1 lb [...] Arch: ? Visualized SVC: ? Visualized Cardiac T[place]: ?Visualized Diaphragm: ? Visualized 3 Vessel View: [...] 08/27/2023 03:56 pm) PATIENT INFO: ID #: [id number] : [birth year] (32 yrs)(F) Name: BELA KOEHLER Visit Date: 08/27/2023 02:44 pm PERFORMED BY: Performed By: Lawanda Mar RDMS Attending: Ofe Mccall MD Referred By: OFE MCCALL Location: [place] SERVICE(S) PROVIDED: [facility] - Detailed Morphology - [id number] UOBTVCER - Transvaginal 2nd Trimester - 64203 Cervical Length - [id number] INDICATIONS: 20 weeks gestation of Z3A.20 h/o [...] Visualized Ductal Arch: Visualized SVC: Visualized Cardiac [place]ullos: Visualized Diaphragm: Visualized 3 Vessel View: Visualized [...] who have questions, please contact the health neurocritical care physician that requested your imaging first. Ofe Mccall, Staff Physician Electronically Signed Final Report 08/27/2023 03:56 pm Ofe Mccall MD IMG US OB ORDERABL ES * US OB Limited (08/21/2023 3:40 PM [...] who have questions, please contact the health neurocritical care physician that requested your imaging first. ?Livier Mendosa Staff Physician Electronically Signed Final Report ?? 08/21/2023 03:57 pm Narrative 08/21/2023 3:58 PM EDT OBSTETRICS REPORT ?(Signed Final 08/21/2023 03:57 pm) PATIENT INFO: ID #: ? [id number] ?: ??[birth year] (32 yrs)(F) Name: ? BELA KOEHLER ?Visit Date: 08/21/2023 03:37 pm PERFORMED BY: Performed By: ? Katie Li RDMS Attending: ?Navya HERBERT, Livier Wheeler Referred By: ?OFE MCCALL Location: ? [place] SERVICE(S) PROVIDED: [facility] - Transabdominal - [place] - [id number] ?[id number] UOBTVCER - Transvaginal ??2nd Trimester - ?97755 Cervical Length - [id number] INDICATIONS: 19 weeks gestation of ?Z3A.19 Cervix [...] 08/21/2023 03:57 pm) PATIENT INFO: ID #: [id number] : [birth year] (32 yrs)(F) Name: BELA KOEHLER Visit Date: 08/21/2023 03:37 pm PERFORMED BY: Performed By: Katie Li RDMS Attending: Livier Mendosa MD Referred By: OFE MCCALL Location: [place] SERVICE(S) PROVIDED: [facility] - Transabdominal - [place] - [id number] UOBTVCER - Transvaginal 2nd Trimester - 55798 Cervical Length - [id number] INDICATIONS: 19 weeks gestation of Z3A.19 Cervix [...] 1.39 FL/BPD: 73.6 % FL/AC: 22.8 % 20 - 24 Est. FW: 376 gm 0 [...] who have questions, please contact the health neurocritical care physician that requested your imaging first. Livier Mendosa, Staff Physician Electronically Signed Final Report 08/21/2023 03:57 pm Ofe Mccall MD IMG US OB ORDERABL ES documented in this encounter Visit Diagnoses Diagnosis premature rupture of membranes (PPROM) with unknown onset of labor premature rupture of membranes (PPROM) with unknown onset of labor premature rupture of membranes (PPROM) with unknown onset of labor documented in this encounter Care Teams Technology Engineer Relationship Specialty Start Date End Date Gus Velasco MD [address] [place] [address] PCP - General Internal Medicine 07/02/23 07/07/24 documented as of this encounter
--- OUTSIDE RECORDS SUMMARY | 2024-12-20 20:31 | XMS_ITS | Encounter Summary ---
Author Organization [facility] Address [address] [place] [address] Care Team Providers Care Inker And Opaquer Name Role Phone Unknown, Provider Primary Care Provider Unava ilable Encounter Details Date Type Department Care Team (Late st Contact Info) Description 06/26/2023 Lab Requisition [facility] Pathology & Laboratory Medicine - [address] [address] Outr Resulting Lab, Provider Social History Tobacco [...] Comments HOLD SST Today 06/26/2023 12:17 EDT HEPATITIS C AB W REFLEX TO HCV RNA BY PCR Today 06/26/2023 12:17 EDT HEPATITIS B SURFACE ANTIGEN Today 06/26/2023 12:17 EDT documented in this encounter Results * HOLD SST (06/26/2023 12:17 EDT) Hold Hold 06/26/2023 23:01 EDT [facility] Blood VENOUS BLOOD / Unknown 06/26/2023 12:17 EDT 06/26/2023 21:50 EDT us Provider Outr Resulting Lab LAB INFO SERVICE AND SUPPORT & PHONE RESULT Final Result [facility] [address] [place] [address] * HEPATITIS B SURFACE ANTIGEN (06/26/2023 12:17 EDT) Hep B Surface Ag Negative Negative 06/29/2023 9:34 EDT [facility] Blood VENOUS BLOOD / Unknown 06/26/2023 12:17 EDT 06/26/2023 21:50 EDT us Provider Outr Resulting Lab CHEMISTRY & BLOOD GA S ORDERABLES Final Result [facility] [address] [place] [address] * HEPATITIS C AB W REFLEX TO HCV RNA BY PCR (06/26/2023 12:17 EDT) Hep C Antibody Negative Negative 06/29/2023 9:56 EDT [facility] Blood VENOUS BLOOD / Unknown 06/26/2023 12:17 EDT 06/26/2023 21:50 EDT us Provider Outr Resulting Lab CHEMISTRY & BLOOD GA S ORDERABLES Final Result [facility] [address] [place] [address] documented in this encounter Visit Diagnoses Not on filedocumented in this encounter Care Teams Inker And Opaquer Relationship Specialty Start Date End Date Unknown, Provider, PCP - General 05/13/16 documented as of this encounter
--- OUTSIDE RECORDS SUMMARY | 2024-12-20 20:31 | XMS_ITS | Encounter Summary ---
Author Organization [facility] Address [address] [place] [address] Care Team Providers Care Forging Roll Operator Name Role Phone Unknown, Provider Primary Care Provider Unava ilable Encounter Details Date Type Department Care Team (Late st Contact Info) Description 06/26/2023 Lab Requisition [facility] Pathology & Laboratory Medicine - [address] [address] Outr Resulting Lab, Provider Social History Tobacco [...] Procedure Name Priority Date/Time Associated Diagnosis Comments CHLAMYDIA/N. GONORRHOEAE AMPLIFIED NUCLEIC ACID Routine 06/26/2023 12:00 EDT documented in this encounter Results * CHLAMYDIA/N. GONORRHOEAE AMPLIFIED RNA (06/26/2023 12:00 EDT) Neisseria gonorrhoeae Result Negative Negative 06/27/2023 13:25 EDT [facility] Chlamydia trachomatis Result Negative Negative 06/27/2023 13:25 EDT [facility] Swab ENTIRE VAGINA / Unknown 06/26/2023 12:00 EDT 06/26/2023 22:49 EDT us Provider Outr Resulting Lab MICROBIOLOGY - GENER AL ORDERABLES Final Result [facility] [address] [place] [address] documented in this encounter Visit Diagnoses Not on filedocumented in this encounter Care Teams Forging Roll Operator Relationship Specialty Start Date End Date Unknown, Provider, PCP - General 05/13/16 documented as of this encounter
--- OUTSIDE RECORDS SUMMARY | 2024-12-20 20:31 | XMS_ITS | Encounter Summary ---
Author Organization [facility] Address [address] [place] [address] Care Team Providers Care Radio Mechanic Apprentice Name Role Phone Unknown, Provider Primary Care Provider Unava ilable Encounter Details Date Type Department Care Team (Late st Contact Info) Description 12/15/2023 Lab Requisition [facility] Pathology & Laboratory Medicine - [address] [id number] Outr Resulting Lab, Provider Social History Tobacco [...] Procedure Name Priority Date/Time Associated Diagnosis Comments FENTANYL SCREEN WITH REFLEX TO CONFIRMATION, U Routine 12/15/2023 10:20 EST documented in this encounter Results * FENTANYL SCREEN WITH REFLEX TO CONFIRMATION, U (12/15/2023 10:20 EST) Fentanyl Screen with Reflex to Confirmation, U Negative <1 ng/mL 12/17/2023 16:11 EST [facility] Urine URINE / Unknown 12/15/2023 1 0:20 EST 12/15/2023 21:43 EST Narrative [facility] - 12/17/2023 16:11 EST Testing performed by: [facility] [address] [place] [address], [address], [place] [address] Senior Animal Trainer: Mario King MD; CLIA # [id number] us Provider Outr Resulting Lab URINALYSIS ORDERABLE S Final Result [facility] [address] [facility] [address], [address] [place] [address], [facility] [phone] documented in this encounter Visit Diagnoses Not on filedocumented in this encounter Care Teams Radio Mechanic Apprentice Relationship Specialty Start Date End Date Unknown, Provider, PCP - General 05/13/16 documented as of this encounter
--- OUTSIDE RECORDS SUMMARY | 2024-12-20 20:31 | XMS_ITS | Encounter Summary ---
Author Organization [facility] [place] [address] Care Team Providers Care Fermenter Wine Name Role Phone Gus Velasco MD Primary Care Provider [phone] Encounter Details Date Type Department Care Team (Late st Contact Info) Description 03/20/2023 Interpretation Only Radiology Library at [facility] ([address] [address] Adis Ambriz MD [facility] [place] [address] [place] [address] Social History Tobacco Use Types Packs/Day Years [...] MD IMG FILM LIBRARY ORD ERABLES [facility] [place], [place] documented in this encounter Visit Diagnoses Not on filedocumented in this encounter Care Teams Fermenter Wine Relationship Specialty Start Date End Date Gus Velasco MD [address] [place] [address] PCP - General Internal Medicine 07/02/23 07/07/24 documented as of this encounter
--- OUTSIDE RECORDS SUMMARY | 2024-12-20 20:31 | XMS_ITS | Encounter Summary ---
Author Organization [facility] [place] [address] Care Team Providers Care Welding Production Supervisor Name Role Phone Rosangela Sanon APRN Primary Care Provider [phone] Reason for Referral * Consultation (Routine) - Closed Specialty Diagnoses / Procedures Referred By Betty grady Referred To Contact Neurosurgery Diagnoses Radiculopathy, lumbar region Jacqueline Lopez DO [address] [address] [facility] Neurosurgery [address] [place] [address] Referral ID Status Reason Start Date Expiration Date V isits Requested Visits Authorized [id number] Closed Consult, Test & Treat 07/08/2024 07/08/2025 1 1 Encounter Details Date Type Department Care Team (Late st Contact Info) Description 07/08/2024 Transcribe Orders Neurosurgery at [facility] [address] [place] [address] Jacqueline Lopez DO 580 [facility] [phone] Radiculopathy, lumbar region Social History Tobacco Use Types Packs/Day Years [...] as of this encounter Plan of Treatment Scheduled Referrals Name Type Priority Associated Diagnoses Order Schedule Referral to Neurosurgery Outpatient Referral Routine Radiculopathy, lumbar region Ordered: 07/08/2024 documented as of this encounter Visit Diagnoses Diagnosis Radiculopathy, lumbar region Thoracic or lumbosacral neuritis or radiculitis, unspecified documented in this encounter Care Teams Welding Production Supervisor Relationship Specialty Start Date End Date Rosangela Sanon, FORESTRY TECHNICIAN [address] [place] [address] PCP - General Family Medicine 07/08/24 documented as of this encounter
--- OUTSIDE RECORDS SUMMARY | 2024-12-20 20:31 | XMS_ITS | Referral Summary ---
Author Organization [facility] Address [address] [place] [address] Care Team Providers Care Senior Risk Manager Name Role Phone Unknown, Provider MD Primary Care Provider Unava ilable Social History Tobacco Use Types Packs/Day Years Used Date Smoking Tobacco: Never Assessed Comments Unknown Sex and Gender Information Value Date Recorded Sex Assigned at Not on file Legal Sex Female 12:26 EDT Gender Identity Not on file Sexual Orientation Not on file Plan of Treatment Not on file Procedures Procedure Name Priority Date/Time Associated Diagnosis Comments HEPATITIS C AB W REFLEX TO HCV RNA BY PCR Today 06/26/2023 12:17 EDT from Last 3 Months or Most Recently Relevant to Health Maintenance Results * HEPATITIS C AB W REFLEX TO HCV RNA BY PCR (06/26/2023 12:17 EDT) Hep C Antibody Negative Negative 06/29/2023 9:[address] [facility] Blood VENOUS BLOOD / Unknown 06/26/2023 12:17 EDT 06/26/2023 21:50 EDT us Provider Outr Resulting Lab CHEMISTRY & BLOOD GA S ORDERABLES Final Result [facility] [address] [place] [address] from Last 3 Months or Most Recently Relevant to Health Maintenance Care Teams Senior Risk Manager Relationship Specialty Start Date End Date Unknown, Provider, PCP - General 05/13/16
--- OUTSIDE RECORDS SUMMARY | 2024-12-20 20:31 | XMS_ITS | Continuity of Care Document ---
Author Organization [facility] Family [facility], Isabell Manuel Address [address] [facility] [address] [place] [address] Assessment Encounter Date Assessment Date Assessment LastModified by Organization Details LastModified Time 11/23/2024 11/23/2024 - groin pain: The patient presents with intermittent groin pain, likely due to a muscle strain. Examination did not reveal any signs of a hernia. (groin muscle strain) - anxiety: The patient reports anxiety contributing to elevated pulse and stress levels. (generalized anxiety disorder) - hypertension: The patient's blood pressure is stable on current medication regimen, but there is concern about fluctuations due to stress and medication interactions. (essential hypertension) Plan: - Continue icing and ibuprofen for groin pain. - Increase escitalopram to 20 mg for anxiety. - Continue atenolol 20 mg for blood pressure management. - Renew Adderall 20 mg and oxycodone prescriptions. Follow-up: - Schedule a follow-up appointment in one month to assess the patient's progress and make any necessary adjustments to the treatment plan. - Send prescriptions for Adderall, oxycodone, and baclofen (if needed) to the pharmacy. Time spent with patient was >45 minutes performing evaluation and medication management. [email or web address] Not available 11/23/2024 12:28:41 Plan of Treatment Reminders Order Date Submit Date Provider Last Modified By Organization Details Last Modified Time Details Appointments None recorded. Lab None recorded. Referral None recorded. Procedures None recorded. Surgeries None recorded. Imaging None recorded. Medication Orders escitalopra m 20 mg tablet 2024 025 [facility], [address] [place], [address], 12:20:19 oxycodone 20 mg tablet 2024 025 [facility], [address] [place], [address], 12:20:21 dextroamphe tamine-amph etamine ER 20 mg 24hr capsule,ext end release 2024 025 [facility], [address] [place], [address], 12:20:19 Patient Targets Encounter Date Encounter Id Patient Goals Patient Target Last Modified By Organization Details Last Modified Time Lifestyle modification with diet and exercise (as tolerated).Cont inue monitoring patient's overall health during follow-up visits. [email or web address] Not available 11/23/2024 12:26:44 Patient Instructions Encounter Date Encounter Id Patient Instructions Last Modified By Organization Details Last Modified Time 11/23/2024 [id number] - Wait about a week or two to see if the groin pain goes away. If it doesn't, consider physical therapy to stretch the muscle. - Take ibuprofen or Tylenol to help with inflammation and pain. - Continue icing the affected area to reduce swelling. - Keep an eye on the groin area for any changes or persistent pain. - Renew your Adderall 20 mg prescription. - Renew your oxycodone prescription. - Increase escitalopram to 20 mg to help with anxiety. - Consider taking baclofen twice a day instead of three times on days when you are most active to reduce tiredness. - Schedule a follow-up appointment in a month. [email or web address] Not available 11/23/2024 12:26:47 Reason for Referral None Reported. Results Created Date Observation Date Name Description Value Unit Range Abnormal Flag Note LastModifiedBy Organization Detail LastModifiedTime 10/27/20 24 10/28/2024 linda quijanogr am No observ ation record ed. [email or web address] Isabell Manuel [address] [place] [address] [address], [place], [address], 10/28/2024 14:36:21 11/02/20 linda rocsierra diogr am No observ ation record ed. [email or web address] [address], [place], [address], 11/02/2024 12:21:55 Result Notes None recorded. Problems Name Problem SNOMED Code Status Onset Date Resolution Date Notes Provider Name and Address Organization Details Recorded Time Hypertensive disorder 97629294 Active 2023 Isabell Manuel APRN, BILL SORTER-C, PMHNP-C, D[place], [address], [facility] 4 12:48:06 Essential hypertension 70716860 Active 2024 Isabell Manuel APRN, BILL SORTER-C, PMHNP-C, D[place], [address], [facility] 5 12:16:50 Strain of muscle and/or tendon of thigh 741607942 Active 2024 Isabell Manuel APRN, BILL SORTER-C, PMHNP-C, D[place], [address], [facility] 5 12:26:42 Attention deficit hyperactivity disorder 512366722 Active [address] [place], [address], [place] [facility] 4 09:16:34 Insomnia 493482174 Active [address] [place], [address], [facility] 4 09:16:44 Low back pain 092084707 Active [address] [place], [address], [facility] 4 09:17:00 Generalized anxiety disorder 11734171 Active [address] [place], [address], [facility] 4 09:17:09 Degeneration of lumbar intervertebral disc 10805239 Active [address] [place], [address], [facility] 4 09:17:40 Increased blood pressure 64966537 Active 2023 Isabell Manuel, BOILER COVERER, BILL SORTER-C, PMHNP-C, D[place], [address], [facility] 4 14:34:49 Problem Notes None recorded. Medical Equipment None Reported. Allergies Allergen ID Allergen Name Allergen Category Reaction Reaction Severity Criticality Documentation Date Start Date Code Code System Note Provider Name and Address Organization Details Recorded Time 7 Product containin g penicilli n and antibioti c (product) medicatio n hives Not available Not available 10/27/2024 [address] [place], [address], [facility] 4 09:15:44 8 acetamino phen / hydrocodo ne medicatio n nausea Not available Not available 10/27/2024 [address] [place], [address], [facility] 4 09:16:05 9 amoxicill in medicatio n hives Not available Not available 10/27/2024 [address] [place], [address], [facility] 4 09:16:14 Medications Name Sig Start Date [...] height Body mass index (BMI) Body weight Oxygen saturation Oxygen saturation in Arterial blood by Pulse oximetry Heart rate Body temperature Systolic blood pressure Diastolic blood pressure Provider Name and Address Organization Details Last Updated DateTime 5 175.26 cm 22.3 kg/m2 72724.4 5 g 97 % 97 % 106 /min 97.9 [degF] 124 mm[Hg] 68 mm[Hg] Isabell Manuel [address] [place], [address] [facility] 5 09:47:41 Social History None recorded. Functional Status None recorded. Mental Status None recorded. Family History Nothing Reported. Medical History No medical history recorded. Gynecological HistoryNo gynecological history recorded. Obstetrics History GPAL:G 0 P 0 0 0 0 Past Encounters Encounter ID Performer Location Encounter Start Date Encounter Closed Date Diagnosis/Indication Diagnosis SNOMED-CT Code Diagnosis ICD10 Code Diagnosis Note [id number] Isabell Manuel, VITALIY, BILL SORTER-C, PMHNP-C, DNP Isabell Manuel [address] [facility] [address] [place] [address] 10/27/2024 13:40:08 10/27/2024 14:30:55 Disorders of attention and motor control 635487117 F90.0 Prescribe 30 mg Adderall (amphetami ne/dextroa mphetamine ) with 20 mg extended release in the morning and 10 mg midafterno on. Advise not to take the 10 mg dose past 3 PM. Monitor response to adjusted dosage. Increased blood pressure 80206320 R03.0 Recheck BP x 24-48 hours. 154 Isabell Manuel [address] [facility] [address] [place] [address] 10/28/2024 13:13:44 10/28/2024 13:22:17 Therapeutic drug monitoring assay 26660192 Z51.81 EKG and BP checked today to clear Raven for her adderall prescripti on. Provider will assess the EKG and call the patient with results. BP today was 140/82 manually. Raven reports that she has never had high blood pressure. 401 Isabell Manuel APRN, BILL SORTER-C, PMHNP-C, DNP Isabell Manuel [address] [facility] [address] [place] [address] 11/23/2024 09:10:38 11/23/2024 09:55:15 Essential hypertension 73644025 I10 Continue current dose of Lisinopril 20 mg daily. Monitor blood pressure closely. Generalize d anxiety disorder 76245677 F41.1 Increase escitalopr am to 20 mg to help manage anxiety symptoms. Strain of muscle and/or tendon of thigh 399274655 S76.811A Advise the patient to continue icing the area and taking ibuprofen for inflammati on. Monitor symptoms for a week or two, and consider physical therapy if pain persists. Degenerati on of lumbar intervertebral disc 74528940 M51.369 Pain management - Assessment : Patient is on oxycodone and baclofen for pain management . Reports that baclofen helps with back pain but causes tiredness. - Plan: a. Renew oxycodone prescripti on.b. Confirm if patient has a baclofen refill, and if not, send a new prescripti on.c. Discuss the balance between pain relief and mental focus with the patient.d. Consider adjusting medication regimen accordingl y. Attention deficit hyperactivity disorder 788404180 F90.9 Adderall effectiven ess- Assessment : Patient reports that Adderall is not as effective as it used to be and causes tiredness when taken with baclofen.- Plan: a. Maintain current Adderall dosage at 20 mg.b. Consider adjusting the baclofen dosing frequency (e.g., twice a day instead of three times a day) to minimize tiredness and optimize effectiven ess. Health Concerns Section Related Observation LastModified by Organization Detai ls LastModified Time None Recorded Concern Status LastModified by Organization Details LastModified Time None Recorded Payers Encounter Date Sequence Insurance Name Policy Number Policy Campbell Covered Member ID Campbell Member ID Guarantor Name 11/23/2024 1 [facility] (MEDICAID) Raven T Rodo [id number] Raven Koehler Notes Date Note Type Note Provider Name and Address Organization Details Recorded Time 11/23/2024 text/html Experiencing gogo in pain that began the day before yesterday and also occurred about a month ago, the patient describes the pain as starting suddenly and feeling like a growing pain, with sensitivity in the groin area. Previously, the pain lasted a few days and then subsided. Recently, while sitting style and moving their legs, a sensation led to the recurrence of the groin pain. The pain fades in and out, with varying intensity, sometimes making it difficult to walk across the house. At times, the pain was excruciating, but the patient was able to walk normally after a short period. During the pain episodes, the patient felt a bump in the groin area, which seemed to have reduced by the morning. Concerned about aggravating the pain again, the patient has been using ice and taking ibuprofen to manage the inflammation. The patient denies any issues with urination and reports no pain during urination. Isabell Manuel, VITALIY, BILL SORTER-C, PMHNP-C, DNP [address] [place] [address] , [place], [address], [facility] 11/23/2024 12:28:52 OBGyn Episode No OBEpisode recorded.
--- OUTSIDE RECORDS SUMMARY | 2024-12-20 20:31 | XMS_ITS | Encounter Summary ---
[place] [address] Care Team Providers Care Appraisal Manager Name Role Phone Gus Velasco MD Primary Care Provider [phone] Reason for Referral * Consultation (Routine) - Closed Specialty Diagnoses / Procedures Referred By Betty grady Referred To Contact Obstetrics and Gynecology Diagnoses Supervision of elderly multigravida, unspecified trimester , unspecified gestational age History of pre-term labor Jeanie Siu CNM [address] [place] [address] [address] [place] [address] [facility] Invasive Cardiovascular Technologist [address] [address] Referral ID Status Reason Start Date Expiration Date V isits Requested Visits Authorized [id number] Closed Consult, Test & Treat PCP Updated and/or Approved 07/02/2023 07/01/2024 6 6 Encounter Details Date Type Department Care Team (Late st Contact Info) Description 07/02/2023 Transcribe Orders [facility] Incoming Referrals [phone] Jeanie Siu CNM [address] [place] [address] [address] [place], [place] [phone] Elderly multigravida with antepartum condition or complication; , unspecified gestational age; History of pre-term labor Social History Tobacco Use Types Packs/Day Years Used Date Smoking Tobacco: Never Assessed Sex and Gender Information Value Date Recorded Sex Assigned at Not on file Gender Identity Not on file Sexual Orientation Not on file documented as of this encounter Plan of Treatment Scheduled Referrals Name Type Priority Associated Diagnoses Orde r Schedule Referral to Maternal Medicine Outpatient Referral Routine Elderly multigravida with antepartum condition or complication , unspecified gestational age History of pre-term labor Ordered: 07/02/2023 documented as of this encounter Visit Diagnoses Diagnosis Elderly multigravida with antepartum condition or complication , unspecified gestational age History of pre-term labor Personal history of pre-term labor documented in this encounter Care Teams Appraisal Manager Relationship Specialty Start Date End Date Gus Velasco MD [address] [place] [address] PCP - General Internal Medicine 07/02/23 07/07/24 documented as of this encounter
--- OUTSIDE RECORDS SUMMARY | 2024-12-20 20:31 | XMS_ITS | Encounter Summary ---
[place] [address] Care Team Providers Care Head Holder Name Role Phone Gus Velasco MD Primary Care Provider [phone] Encounter Details Date Type Department Care Team (Late st Contact Info) Description 08/27/2023 4:00 PM EDT Office Visit Obstetrics [place] [address] Ofe Mccall MD [facility] DR OBSTETRICS [place] [address] premature rupture of membranes (PPROM) with unknown onset of labor; Short cervix Social History Tobacco Use Types Packs/Day Years Used Date Smoking Tobacco: Former Cigarettes Smokeless Tobacco: Former Alcohol Use Standard Drinks/Week Comments Not Currently 0 (1 standard drink = 0.6 oz pur e alcohol) Comments Yes Sex and Gender Information Value Date Recorded Sex Assigned at Not on file Gender Identity Not on file Sexual Orientation Not on file documented as of this encounter Progress Notes * Ofe Mccall MD - 08/27/2023 4:00 PM EDT Gestational age: 20w5d, returns for follow-up ultrasound and limited MFM consult for AMA and h/o with short cervix ay 19 weeks. Has not started vaginal progesterone but it is at the pharmacy Patient Active Problem List Diagnosis Date Noted premature rupture of membranes (PPROM) with unknown onset of labor 10/19/2016 Resolved Hospital Problems No resolved problems to display. Ultrasound Date: 08/27/2023 Growth appropriate for gestational age Amniotic fluid volume normal Presentation cephalic Placenta anterior anatomy unremarkable Physical Exam There were no vitals taken for this visit. General: alert, well appearing, in no apparent distress HEENT: normocephalic, atraumatic Abdomen: Gravid, soft, nontender Neurologic:alert, oriented, normal speech, no focal findings or movement disorder noted Psychiatric: Affect is Appropriate. Assessment and Recommendations: 32 y.o. year old female at 20w5d weeks gestation. We reviewed the ultrasound findings and limitations of ultrasound in detecting anomalies and aneuploidy. The growth, fluid, placenta and placenta appear unremarkable. There cervix length measures 2.1-2.4cm which is stable over the last week. I reviewed the risk of recurrent based on her cervix length as: Risk of delivery before 28 weeks: 1.2 % Risk of delivery before 31 weeks: 4.6 % Risk of delivery before 34 weeks: 12.5 % Risk of delivery before 37 weeks: 25.7 % I reviewed the cerclage procedure risks and benefits. She would like to think about it some more and may contact us to schedule. Understands most providers will not offer the cerclage after 23 6/7 weeks and some will not offer it after 22 6/7 weeks. Also reviewed that as the cervix shortens the procedure carries higher risks of rupture of membranes. I appreciate the opportunity to be involved in this patients care, and am available if further questions should arise. OFE MCCALL MD 08/27/2023 Cc: Ofe Mccall, with copy of ultrasound report documented in this encounter Plan of Treatment Not on file documented as of this encounter Visit Diagnoses Diagnosis premature rupture of membranes (PPROM) with unknown onset of labor Short cervix documented in this encounter Care Teams Head Holder Relationship Specialty Start Date End Date Gus Velasco MD [address] [place] [address] PCP - General Internal Medicine 07/02/23 07/07/24 documented as of this encounter
--- OUTSIDE RECORDS SUMMARY | 2024-12-20 20:31 | XMS_ITS | Encounter Summary ---
Author Organization Health system Address [address] [place] [address] Care Team Providers Care Compliance And Control Analyst Name Role Phone Unknown, Provider Primary Care Provider Unava ilable Encounter Details Date Type Department Care Team (Late st Contact Info) Description 06/26/2023 Lab Requisition [facility] Pathology & Laboratory Medicine - [address] [phone] Outr Resulting Lab, Provider Social History Tobacco [...] Procedure Name Priority Date/Time Associated Diagnosis Comments HIV 1/2 ANTIGEN AND ANTIBODY, 4TH GENERATION Routine 06/26/2023 12:17 EDT documented in this encounter Results * HIV 1/2 ANTIGEN AND ANTIBODY, 4TH GENERATION (06/26/2023 12:17 EDT) HIV 1 and 2 Antibody/p24 Antigen, 4th Generation Negative Negative 06/28/2023 10:31 EDT [facility] Comment:If acute HIV-1 infec tion is suspected in a high risk patient, submit plasma specimen for HIV-1 RNA quantitation test. Blood VENOUS BLOOD / Unknown 06/26/2023 12:17 EDT 06/26/2023 21:50 EDT Narrative [facility] - 06/28/2023 10:31 EDT Fourth Generation assay performed on the Siem[employer] XPT. us Provider Outr Resulting Lab IMMUNOLOGY AND SEROL OGY ORDERABLES Final Result [facility] [address] [place] [address] documented in this encounter Visit Diagnoses Not on filedocumented in this encounter Care Teams Compliance And Control Analyst Relationship Specialty Start Date End Date Unknown, Provider, PCP - General 05/13/16 documented as of this encounter
--- OUTSIDE RECORDS SUMMARY | 2024-12-20 20:31 | XMS_ITS | Encounter Summary ---
[place] [address] Care Team Providers Care Coat Presser Name Role Phone Gus Velasco MD Primary Care Provider [phone] Encounter Details Date Type Department Care Team (Latest Contact Info) Description 08/27/2023 Travel Social History Tobacco Use Types Packs/Day [...] on filedocumented in this encounter Care Teams Coat Presser Relationship Specialty Start Date End Date Gus Velasco MD [address] [place] [address] PCP - General Internal Medicine 07/02/23 07/07/24 documented as of this encounter
--- OUTSIDE RECORDS SUMMARY | 2024-12-20 20:31 | XMS_ITS | Encounter Summary ---
Author Organization [facility] Address [address] [place] [address] Care Team Providers Care Supervisor Of Instruction Name Role Phone Unknown, Provider Primary Care Provider Unava ilable Encounter Details Date Type Department Care Team (Late st Contact Info) Description 06/29/2023 Lab Requisition [facility] Pathology & Laboratory Medicine - [address] [address] [address] [place], [place] [phone] Encounter for other general examination Social History Tobacco Use Types Packs/Day Years Used Date Smoking Tobacco: Never Assessed Comments Unknown Sex and Gender Information Value Date Recorded Sex Assigned at Not on file Legal Sex Female 12:26 EDT Gender Identity Not on file Sexual Orientation Not on file documented as of this encounter Plan of Treatment Scheduled Orders Name Type Priority Associated Diagnoses Orde r Schedule PAP TEST Pathology Today Encounter for other general examination Ordered: 06/29/2023 documented as of this encounter Visit Diagnoses Diagnosis Encounter for other general examination documented in this encounter Care Teams Supervisor Of Instruction Relationship Specialty Start Date End Date Unknown, Provider, PCP - General 05/13/16 documented as of this encounter
--- OUTSIDE RECORDS SUMMARY | 2024-12-20 20:31 | XMS_ITS | Encounter Summary ---
Author Organization [facility] Address [address] [place] [address] Care Team Providers Care Geoscience Specialist Name Role Phone Unknown, Provider Primary Care Provider Unava ilable Encounter Details Date Type Department Care Team (Late st Contact Info) Description 06/29/2023 Lab Requisition [facility] Pathology & Laboratory Medicine - [address] [phone] Encounter for other general examination Social History [...] Name Priority Date/Time Associated Diagnosis Comments PAP TEST Today 06/26/2023 12:00 EDT Encounter for other general examination HPV DNA DETECTION WITH GENOTYPING, PCR Today 06/26/2023 12:00 EDT Encounter for other general examination documented in this encounter Results * HUMAN PAPILLOMAVIRUS (HPV) DETECTION-HIGH RISK TYPES (06/26/2023 12:00 EDT) HPV other High Risk types, PCR Negative Negative 07/08/2023 14:07 EDT [facility] Comment:No E6 or E7 mRNA is detected from HPV types 16,18,31,33,35,39,45,51,52,56,58,59,66, and 68 by diesel truck technician mediated amplification. Pap Test CERVIX UTERI STRUCTURE / Unknown 06/26/2023 12:00 EDT 07/07/2023 15:13 EDT Jeanie Siu CNM MICROBIOLOGY - GENERAL ORDERABLES Final Result [facility] [address] [place] [address] * PAP TEST (06/26/2023 12:00 EDT) Specimens A. Cervix and/or Endocervix , ThinPrep Imaging System with Manual Evaluation 07/08/2023 14:07 EDT [facility] Specimen Adequacy Satisfactory for Evaluation - transformation zone component present 07/08/2023 14:07 EDT [facility] General Categorization Negative for intraepithelial lesion or malignancy 07/08/2023 14:07 EDT [facility] Attestation . 07/08/2023 14:07 T [facility] at 1407 Clinical History See below 07/08/20 14:07 EDT [facility] HPV The result for the Human Papillomavirus (HPV) Detection-High Risk Types is Negative. No E6 or E7 mRNA is detected from HPV types 16,18,31,33,35,39 ,45,51,52,56,58,5 9,66, and 68 by diesel truck technician mediated amplification.Ramona ting was performed on specimen [id number] and was resulted on 07/08/2023 1407 EDT by SHAW[facility], LAB INSTRUMENT RESULTS IN 07/08/2023 14:07 EDT [facility] Performing Lab [facility] 07/08/2023 14:07 EDT [facility] Scanned Images 07/08/2023 14:07 EDT [facility] Pap Test CERVIX UTERI STRUCTURE / Unknown 06/26/2023 12:00 EDT 06/29/2023 15:12 EDT Jeanie Siu CNM PATHOLOGY ORDERABLES F inal Result [facility] [address] [place] [address] documented in this encounter Visit Diagnoses Diagnosis Encounter for other general examination documented in this encounter Care Teams Geoscience Specialist Relationship Specialty Start Date End Date Unknown, Provider, PCP - General 05/13/16 documented as of this encounter
--- OUTSIDE RECORDS SUMMARY | 2024-12-20 20:31 | XMS_ITS | Encounter Summary ---
[place] [address] Care Team Providers Care Out Patient Therapist Name Role Phone Unknown Primary Care Provider Unavailabl e Reason for Visit * Auth/Cert Specialty Diagnoses / Procedures Referred By Contfrancine t Referred To Contact Diagnoses premature rupture of membranes (PPROM) with unknown onset of labor SROM, PREMATURE LABOR, 32 WEEK GESTATION Procedures VAGINAL DELIVERY Referral ID Status Reason Start Date Expiration Date Visits Re quested Visits Authorized [id number] 1 1 Encounter Details Date Type Department Care Team (Latest Contact Info) Description 10/19/2016 8:36 PM EST - 10/21/2016 9:25 AM [facility] Hospital [place] [address] Ting Rae MD [facility] OBSTETRICS [place] [address] Discharge Disposition: Home Social History Tobacco Use Types Packs/Day Years Used Date Smoking Tobacco: Never Assessed Sex and Gender Information Value Date Recorded Sex Assigned at Not on file Gender Identity Not on file Sexual Orientation Not on file documented as of this encounter Last Filed Vital Signs Vital Sign Reading Time Taken Comments Blood Pressure 127/68 10/20/2016 8:09 PM EST Pulse 80 10/20/2016 8:09 PM EST Temperature 37.3 ??C (99.1 ??F) 10/20/2016 8:09 PM ES T Respiratory Rate 18 10/20/2016 8:09 PM EST Oxygen Saturation 96% 10/20/2016 8:08 PM EST Inhaled Oxygen Concentration - - Weight 82.2 kg (181 lb 2 oz) 10/20/2016 12:34 AM EST Height 175.3 cm (5' 9) 10/20/2016 12:34 AM EST Body Mass Index 26.75 10/20/2016 12:34 AM EST documented in this encounter Discharge Summaries * Daniel Fay - 10/21/2016 9:25 AM EST Discharge Summary Patient Name: Bela Koehler Patient Age: 25 y.o. 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 premature rupture of membranes (PPROM) with unknown onset of labor Resolved Hospital Problems Diagnosis Date Resolved No resolved problems to display. There are no active non-hospital problems to display for this patient. Operations/Major Procedures: Spontaneous vaginal delivery 10/19/2016 History of Presentation: Chief Complaint: Bela Koehler was admitted today secondary to premature rupture of membranes who is now in active labor ?? Bela Koehler is a 25 y.o. at 31w5d gestation by first trimester US. Her has been uncomplicated until she had spontaneous rupture of membranes 1724. She reported to [facility] and began to have contractions. She was found to be 1.5cm and started on magnesium for neuroprotection, received one dose of betamethasone, and was given azithromycin for latency antibiotics. ?? Review of Systems- Negative to complete review except as noted in the HPI. ?? Obstetric Review of Systems Total Weight Gain this Not found. Movement: Normal Contractions: Regular every 2-3 minutes Leaking: Rupture at 1725 Bleeding: None Preeclampsia signs and symptoms: None ?? Hospital Course: Bela Koehler is a 25 y.o. year old woman at 31w6d gestational age who presented with premature rupture of membranes in active labor and progressed quickly, nothing for analgesia. ?? She was found to be complete at 2243 with the presenting part at +3 station. She pushed for 24 minutes and spontaneously delivered at 2310 hrs. There was no nuchal cord. A viable male was heldbelow the level of the placenta and dried and stimulated for 45 seconds of delayed cord clamping and then handed off to waiting N staff. The had APGARS of 8 and 9 at 1 and 5 minutes and had a weight of 2050g. Cord blood was taken and cord gases were obtained. The fundus became firm with massage and pitocin. Inspection of the vagina and perineum revealed a first degree perineal lacerationwhich was repaired in layers with 3-0 vicryl suture as well as a right labial laceration that was repaired with a figure of eight. Blood loss estimated at 200ccs. Her course was uneventful. By the time of discharge on post day number two, her pain was well controlled with oral pain medications, she was tolerating a regular diet, ambulating, and voiding without difficulty. Her fundal exam was as expected and her lochia was within normal limits. She is establishing and will be followed up in the clinic in 6 weeks. She is stillundecided regarding any contraceptive methods. Delivery Information Information for the patient's : Anita Koehler [[id number]] INFORMATION Anita Koehler 10/19/2016 11:10 PM by Vaginal, Spontaneous Delivery Sex: male Gestational Age: 31w5d Measurements: Weight: 4 lb 8.3 oz (2050 g) APGARS One Minute Five Minutes Ten Minutes Totals: 8 9 EBL: 200 Vital signs at Discharge: BP: 127/68, Heart Rate: 80, Temp: 37.3 ??C (99.1 ??F), Resp: 18, BMI (Calculated): 26.8 Height: 175.3 cm (5' 9) (10/20/1633) Weight - Scale: 82.2 kg (181 lb 2 oz) (10/20/1633) Functional and Cognitive status: Intact, at baseline Important Studies and Lab Data: Labs: Recent Results (from the past 72 hour(s)) ABO/Rh Typing Result Value Ref Range ABORh Type O Pos Antibody screen Result Value Ref Range Ab Screen Interp Negative Expires at 2359 on: 10/22/2016 Rubella Antibody, IgG Result Value Ref Range Rubella IgG Positive Positive Studies: none Pending Studies and Lab Data: Final pathology report Discharge Conditions/Prognosis: Stable Discharge to: home Updated Allergies/ADRs: Allergies Allergen Reactions ??? Penicillins Hives Immunizations Given this Hospitalization: There is no immunization history on file for this patient. Discharge Medications: Your Medications New Medications Dose Details acetaminophen 325 mg Tab Commonly known as: TYLENOL Take 2 tablets by mouth every 4 hours as needed for Pain. 650 mg Quantity: 30 tablet Refills: 1 ibuprofen 600 mg Tab Commonly known as: ADVIL;MOTRIN Take 1 tablet by mouth every 6 hours as needed for Pain. 600 mg Quantity: 30 tablet Refills: 12 Smoking Status at Discharge: History Smoking Status ??? Not on file Smokeless Tobacco ??? Not on file Instructions Given to Patient at Discharge: Patient Instructions Patient Instructions Follow-up: Six weeks with your care provider - please contact them to schedule an appointment Activity: Nothing in vagina for six weeks Do not lift more than 15 pounds for six weeks Please alternate tylenol 650mg every six hours and ibuprofen 600 mg every 6 hours Please call your OB provider for the following: Fever more than 100.5 degrees Heavy bleeding that saturates a pad an hour Increased abdominal pain, nausea, shaking chills Headache, change in vision, right upper quadrant pain, or increased swelling in your hands/face Increased pain in the area of stitches outside your vagina. Hot, hard, tender areas on the breast and feeling generally unwell. Depression Contact Numbers: If you see an printer repair technician call: [phone] 9 am - 5 pm, after 5 pm If you see a demonstrator sewing techniques call: [phone] all hours If you were transferred to our institution for delivery and cannot reach your local OB provider, call the printer repair technician numbers. General Instructions Nurse Inpatient Note - Vaginal Delivery Follow-ups: Please follow up with your care provider in 6-weeks. Maternal Discharge Instructions Rest: Although it may seem impossible to get enough rest, simple planning will help. Try to get at least one four hour block of uninterrupted sleep in 24 hours; then plan to rest, and/or sleep when your baby does. Limiting visitors also helps. Fathers and other family members can help by doing housework, caring for other children and/or helping limit visitors. Nutrition: Your diet following the of your baby is as important as it was before the baby wasborn. Drink a minimum of 6-8 glasses a day. Do not attempt to lose weight during the first six weeks. Continue taking your vitamins until they are gone. Lochia: (Flow) Your flow should be no heavier than a normal period. It will be bright red for 2-3 days and then pinkish and finally colorless. If your flow becomes bright red again, decrease your activity. Do not use tampons until your care provider advises you it is OK. Perineum: For about a week continue to rinse yourself with warm water when you use the toilet. A sitz bath with Epsom salts taken 3-4 times a day may help relieve soreness. Kegel exercise, done regularly throughout the day, will help tighten the perineal muscles and speed recovery. Breast Care for Formula feeding mothers: Wear a well fitting bra to support your breasts. Ice packsto your breasts and Tylenol or Ibuprofen may be used to relieve discomfort from engorgement. Avoid stimulating your breasts: Do not let warm water from the shower fall on them; avoid holding your baby near your breasts until your milk begins to decrease and engorgement is relieved. Breast feeding mothers: Practice careful positioning and frequent feeding as demonstrated in the hospital. The printed information in your packet covers this in detail. Call your doctor or demonstrator sewing techniques for: ??? Fever more than 100.5 ??? Heavy bleeding that saturates a pad an hour ??? Clots larger than a plum ??? Increased abdominal pain, nausea, shaking chills ??? Breast with hot, hard, tender areas on the breast plus flu-like symptoms ??? depression occurs in a large percentage of women. We encourage you to contact your provider or a member of the nursing staff if you are feeling so overwhelmed that you are unable to care for yourself or your baby. Keep your follow up appointment. You may call the [facility] at any time for guidance or for answers to questions that come up prior to you follow up appointment. Your [facility] Provider can be reached during office hours at ??? Midwives ??? Obstetricians ??? [facility] ??? AFTER OFFICE HOURS for the printer repair technician or demonstrator sewing techniques fuel distribution system operator Provider electronic signature confirms that discharge instructions were reviewed with the patient. A copy was printed and given to the patient. Discharge References/Attachments None Provider Contact Information: CC: Christelle Marie CNM [facility] documented in this encounter Discharge Instructions * Discharge Instructions* Nia Rojas RN - 10/21/2016 7:50 AM EST Nurse Inpatient Note - Vaginal Delivery Follow-ups: Please follow up with your care provider in 6-weeks. Maternal Discharge Instructions Rest: Although it may seem impossible to get enough rest, simple planning will help. Try to get at least one four hour block of uninterrupted sleep in 24 hours; then plan to rest, and/or sleep when your baby does. Limiting visitors also helps. Fathers and other family members can help by doing housework, caring for other children and/or helping limit visitors. Nutrition: Your diet following the of your baby is as important as it was before the baby wasborn. Drink a minimum of 6-8 glasses a day. Do not attempt to lose weight during the first six weeks. Continue taking your vitamins until they are gone. Lochia: (Flow) Your flow should be no heavier than a normal period. It will be bright red for 2-3 days and then pinkish and finally colorless. If your flow becomes bright red again, decrease your activity. Do not use tampons until your care provider advises you it is OK. Perineum: For about a week continue to rinse yourself with warm water when you use the toilet. A sitz bath with Epsom salts taken 3-4 times a day may help relieve soreness. Kegel exercise, done regularly throughout the day, will help tighten the perineal muscles and speed recovery. Breast Care for Formula feeding mothers: Wear a well fitting bra to support your breasts. Ice packsto your breasts and Tylenol or Ibuprofen may be used to relieve discomfort from engorgement. Avoid stimulating your breasts: Do not let warm water from the shower fall on them; avoid holding your baby near your breasts until your milk begins to decrease and engorgement is relieved. Breast feeding mothers: Practice careful positioning and frequent feeding as demonstrated in the hospital. The printed information in your packet covers this in detail. Call your doctor or demonstrator sewing techniques for: ??? Fever more than 100.5 ??? Heavy bleeding that saturates a pad an hour ??? Clots larger than a plum ??? Increased abdominal pain, nausea, shaking chills ??? Breast with hot, hard, tender areas on the breast plus flu-like symptoms ??? depression occurs in a large percentage of women. We encourage you to contact your provider or a member of the nursing staff if you are feeling so overwhelmed that you are unable to care for yourself or your baby. Keep your follow up appointment. You may call the [facility] at any time for guidance or for answers to questions that come up prior to you follow up appointment. Your [facility] Provider can be reached during office hours at ??? Midwives ??? Obstetricians ??? [facility] ??? AFTER OFFICE HOURS for the printer repair technician or demonstrator sewing techniques fuel distribution system operator Provider electronic signature confirms that discharge instructions were reviewed with the patient. A copy was printed and given to the patient. * Patient Instructions* Elvira Marcelino - 10/20/2016 1:26 PM EST Patient Instructions Follow-up: Six weeks with your care provider - please contact them to schedule an appointment Activity: Nothing in vagina for six weeks Do not lift more than 15 pounds for six weeks Please alternate tylenol 650mg every six hours and ibuprofen 600 mg every 6 hours Please call your OB provider for the following: Fever more than 100.5 degrees Heavy bleeding that saturates a pad an hour Increased abdominal pain, nausea, shaking chills Headache, change in vision, right upper quadrant pain, or increased swelling in your hands/face Increased pain in the area of stitches outside your vagina. Hot, hard, tender areas on the breast and feeling generally unwell. Depression Contact Numbers: If you see an printer repair technician call: [phone] 9 am - 5 pm, after 5 pm If you see a demonstrator sewing techniques call: [phone] all hours If you were transferred to our institution for delivery and cannot reach your local OB provider, call the printer repair technician numbers. documented in this encounter Medications at Time of Discharge Medication Sig Dispensed Refills Start Date End Date acetaminophen (TYLENOL) 325 mg Tablet Take 2 tablets by mouth every 4 hours as needed for Pain. 30 tablet 1 10/21/2016 ibuprofen (ADVIL;MOTRIN) 600 mg Tablet Take 1 tablet by mouth every 6 hours as needed for Pain. 30 tablet 12 10/21/2016 documented as of this encounter Progress Notes * Elvira Marcelino - 10/21/2016 6:39 AM EST Vaginal Delivery Note Information for the patient's : Anita Koehler [[id number]] Delivery Date and Time:10/19/2016 11:10 PM Delivery Type: Vaginal, Spontaneous Delivery Bela Koehler is a 25 yo at 31w6d PPD#2 after presenting with premature rupture of membranes in active labor. Subjective: Cramping has been controlled on oral medications. She is tolerating diet without nauseaor emesis. She is voiding well. She is ambulating without lightheadedness or dizziness. She has passed flatus and had a bowel movement. She has been using the breast pump, which has been going well. Patient declines any contraceptive options at this time. Review of Systems Denies fever, chills, shortness of breath, chest pain, calf tenderness Lochia: mild Last Set of Vitals: Vitals: 10/20/162008 BP: 127/68 Pulse: 80 Resp: 18 Temp: 37.3 ??C (99.1 ??F) Weight - Scale: 82.2 kg (181 lb 2 oz) Physical Exam Gen: Pleasant. Resting comfortably in bed. NAD. Neuro: Alert and oriented. Cardiac: RRR. No murmurs, rubs, or gallops. Pulm: CTAB. No wheezes, rales, or rhonci. Abd: Soft. Mildly tender to palpation. No rebound or guarding. Uterine Fundus: firm, 3 cm below umbilicus Extremities: No lower extremity edema or calf tenderness Significant Labs: Lab Results Component Value Date ABORH O Pos 10/19/2016 RUBLIGG Positive 10/20/2016 Immunization status: up to date Assessment & Plan Bela Koehler is a 25 yo at 31w6d PPD#2 after presenting with premature rupture of membranes in active labor. ?? Patient is doing well. ??? Infant nutrition: breast pumping ??? Contraception: Undecided. ??? Dispo: PPD#2 ??? Plans to follow up at [facility] for 6 week visit This patient was seen and discussed on rounds. Elvira Marcelino MD PGY1 10/21/2016 Associated attestation - Kisha Dolan MD - 10/21/2016 9:37 AM EST The patient is day 2 s/p . I personally saw and evaluated the patient during morning report and rounds with the resident physicians and nursing staff. The patient is making good progress. I agree with Dr. Marcelino's assessment and plan as documented above. We anticipate discharge today on day #2. Kisha DOLAN MD * Elvira Marcelino - 10/20/2016 6:34 AM EST Vaginal Delivery Note Information for the patient's : Anita Koehler [[id number]] Delivery Date and Time:10/19/2016 11:10 PM Delivery Type: Vaginal, Spontaneous Delivery Bela Koehler is a 25 yo at 31w6d PPD#1 after presenting with premature rupture of membranes in active labor. Subjective: Cramping has been moderately controlled on oral medications. She is tolerating diet without nausea or emesis. She is voiding well. She is ambulating without lightheadedness or dizziness. She has passed flatus but not had a bowel movement. She has been using the breast pump, which has been difficult but is improving. Discussed contraception options. States she has used depo provera once in the past, but otherwise has never used contraception. She desires more time to contemplate pursuing any options. Review of Systems Denies fever, chills, shortness of breath, chest pain, calf tenderness Lochia: moderate Last Set of Vitals: Vitals: 10/20/16 0453 BP: 124/60 Pulse: 60 Resp: 16 Temp: 36.6 ??C (97.9 ??F) Weight - Scale: 82.2 kg (181 lb 2 oz) Physical Exam Gen: Pleasant. Resting comfortably in bed. NAD. Neuro: Alert and oriented. Cardiac: RRR. No murmurs, rubs, or gallops. Pulm: CTAB. No wheezes, rales, or rhonci. Abd: Soft. Mildly tender to palpation. No rebound or guarding. Uterine Fundus: firm, 2 cm below umbilicus Extremities: No lower extremity edema or calf tenderness Significant Labs: Lab Results Component Value Date ABORH O Pos 10/19/2016 Immunization status: up to date Assessment & Plan Bela Koehler is a 25 yo at 31w6d PPD#1 after presenting with premature rupture of membranes in active labor. ?? Patient is doing well. ??? nutrition: breast pumping ??? Contraception: Undecided at this time ??? Dispo: PPD#1-2 ??? Plans to follow up at [facility] for 6 week visit This patient was seen and discussed on rounds. Elvira Marcelino MD PGY1 10/20/2016 Associated attestation - Kisha Dolan MD - 10/20/2016 10:24 AM EST The patient is day 1 s/p . I personally saw and evaluated the patient during morning report and rounds with the resident physicians and nursing staff. The patient is making good progress. I agree with Dr. Marcelino's assessment and plan as documented above. We anticipate discharge on day #2. E AFSHIN DOLAN MD documented in this encounter H&P Notes * Ting Rae MD - 10/19/2016 9:05 PM EST Obstetrical Admission Note Referring Hospital: [facility] Referring Provider: Christelle Marie Initial Care Provider (if early referral or co-managed by [facility]): [facility] Chief Complaint: Bela Koehler was admitted today secondary to premature rupture of membranes who is now in active labor Bela Koehler is a 25 y.o. at 31w5d gestation by first trimester US. Her has been uncomplicated until she had spontaneous rupture of membranes 1725. She reported to [facility] and began to have contractions. She was found to be 1.5cm and started on magnesium for neuroprotection, received one dose of betamethasone, and was given azithromycin for latency antibiotics. Review of Systems- Negative to complete review except as noted in the HPI. Obstetric Review of Systems Total Weight Gain this Not found. Movement: Normal Contractions: Regular every 2-3 minutes Leaking: Rupture at 1725 Bleeding: None Preeclampsia signs and symptoms: None Active Hospital Problems Diagnosis ??? premature rupture of membranes (PPROM) with unknown onset of labor Resolved Hospital Problems Diagnosis Date Resolved No resolved problems to display. There are no active non-hospital problems to display for this patient. Past Medical History None Past Surgical History None OB History Para Term AB TAB SAB Ectopic Multiple Living 1 # Outc Date GA Lbr Akhil/2nd Wgt Sex Del Anes PTL Lv 1 Current Medications Ferrous Sulfate Allergies Allergen Reactions ??? Penicillins Hives Family History None Social History Occupational History ??? Not on file. Social History Main Topics ??? Smoking status: Not on file ??? Smokeless tobacco: Not on file ??? Alcohol use Not on file ??? Drug use: Not on file ??? Sexual activity: Not on file Immunization History Given TDAP and flu prentatally Last Set of Vitals: BP 133/77 Pulse 81 SpO2 100% Physical Exam: Gen: AAO, breathing through contractions, visibly uncomfortable Cardio: nl rhythm, S1, S2, no M/C/R/G Pulm: CTA BL, no W/C/R Abd: soft, NT, ND, gravid, 4-5#, vertex Ext: warm, well-perfused, no MEMO Sterile Speculum:Deferred as scalp felt Cervix Exam: Dilation: 4 (10/19/162049) Effacement: 100 Station: +1 Position: Anterior Consistency: Soft George Score: 12 Presentations: Cephalic, confirmed on US Heart Rate Interpretation: Baseline: 140, moderate variability, accelerations present, no decelerations Record Review Labs ABO/RH unknown Hgb/Hct 11.6/33.3 Platelets 238 Rubella Syphillis negative GC/Chlam negative Urine Culture HepBsAg negative HIV negative 1 hr GTT 3 hr GTT GBS unknown Most Recent Ultrasound Bedside US confirmed vertex presentation Assessment & Plan Bela Koehler is a 25 y.o. at 31w5d gestation by first trimester US who is admitted for PPROM with labor whose has otherwise been complicated by anemia. Fetus is cephalic and she is moving into active phase labor. Will continue magnesium for neuroprotection, s/p betamethasone for lung maturity. Will give Vancomycin for GBS unknown status. FHR cat 1. Anticipate . 1. PPROM -Labs: Type and Screen, LOY -Delivery indications: Progressive Labor -Tocolysis: N/A -GBS status: Unknown, will start Vancomycin - status: Continuous FHR monitoring -Steroid status: s/p 1 dose -Magnesium for neuro protection: 1gm/hr -Consultations: NICU -Consents obtained: None 2. contraception plan: Undecided, will defer as patient in active labor This patient was seen and discussed with Dr. Rae, Attending APPLICATION TRAINER. MERLINE KHAN MD PGY4 10/19/2016 I saw and evaluated Bela Koehler. I have reviewed the resident's history and confirmed it with thepateint and I agree with the details as written. My physical examination confirms the resident's findings. The assessment and plan were formulated in discussion with me and I agree with them as documented. TING RAE MD documented in this encounter Miscellaneous Notes * Care Management - Kisha Dolan MD - 10/21/2016 9:25 AM EST I phoned the referring provider's office (Christelle Marie) with an update regarding the patient's hospital course and discharge. Kisha Dolan MD Maternal Medicine * Plan of Care - Randa Higuera RN - 10/21/2016 2:47 AM EST Problem: Patient Care Overview Goal: Plan of Care Review Outcome: Ongoing (Interventions Implemented as Appropriate) 10/20/16 17310/20/162008 Plan of Care Review Progress progress toward functional goals is gradual -- Coping/Psychosocial Plan Of Care Reviewed With -- patient;significant other OUTCOME EVALUATION NOTE: OUTCOME SUMMARY: Pt doing well s/p on 10/19. VSS. Fundus firm and bleeding WDL. Tolerating diet, ambulating and voiding without issue. Pain controlled with prn pain medication. Denies concerns. Visiting infant in ICN. Pumping independently and getting good amounts of colostrum. PLAN MOVING FORWARD: Continue to provide and educate on care. Anticipate discharge later this morning. INDIVIDUALIZED FALL PREVENTION: Assistance: None needed- pt ambulated independently with steady gait. Supervision: Call light within reach and family present at bedside. Surveillance: Bedside nurse knowledge exchange and purposeful rounding per unit protocol. CPG OUTCOME EVALUATION: Goal: Individualization & Mutuality Outcome: Ongoing (Interventions Implemented as Appropriate) 10/20/16 0034 10/21/16 0244 Individualization Patient Specific Preferences -- Pt would like discharge in the morning Patient Specific Goals -- Meet goals of discharge Patient Specific Interventions -- Facilitate discharge Mutuality/Individual Preferences What Anxieties, Fears or Concerns Do You Have About Your Health or Care? baby -- What Questions Do You Have About Your Health or Care? How long do I stay here? -- What Information Would Help Us Give You More Personalized Care? none -- Goal: Fall Prevention-Safe Patient Handling Outcome: Ongoing (Interventions Implemented as Appropriate) 10/20/16173210/20/16200810/21/16243 Daily Care Interventions Self-Care Promotion -- independence encouraged -- Activity and Safety Assistive Device None -- -- Positioning Body Position -- independent -- Musculoskeletal Interventions Muscle Strengthening -- -- activity/mobility promoted;mobility in bed promoted;personal routines for BADL/IADL promoted Bills Fall Risk History of Falling -- 0 -- Secondary Diagnosis -- 0 -- Ambulatory Aids -- 0 -- Intravenous Therapy/Heparin/Saline Lock -- 0 -- Gait/Transferring -- 0 -- Mental Status -- 0 -- Score -- 0 -- OTHER Bills Fall Risk -- Low -- Restraint Interventions Safety Promotion/Fall Prevention -- fall prevention program maintained;muscle strengthening facilitated;nonskid shoes/slippers when out of bed -- Goal: Infection Control Outcome: Ongoing (Interventions Implemented as Appropriate) 10/20/162008 Safety Interventions Isolation Precautions standard precautions maintained Infection Prevention environmental surveillance performed;single patient room provided;rest/sleep promoted Coping Strategies Supportive Measures active listening utilized;goal setting facilitated;positive reinforcement provided;problem solving facilitated;relaxation techniques promoted;self-care encouraged;verbalization offeelings encouraged;self- responsibility promoted;self-reflection promoted;decision-making supported Goal: Discharge Needs Assessment Outcome: Ongoing (Interventions Implemented as Appropriate) 10/20/16173210/21/16243 Discharge Needs Assessment Concerns To Be Addressed -- no discharge needs identified;denies needs/concerns at this time Readmission Within The Last 30 Days no previous admission in last 30 days -- Provider Choice List(s) Given no -- Equipment Needed After Discharge none -- Discharge Disposition still a patient -- Living Environment Transportation Available car;family or friend will provide -- Activity/Self Care Review of Systems Equipment Currently Used at Home none -- Current Health Anticipated Changes Related to Illness none -- Goal: Interdisciplinary Rounds/Family Conf Outcome: Ongoing (Interventions Implemented as Appropriate) 10/21/16243 Interdisciplinary Rounds/Family Conf Participants family;nursing;patient;physician Problem: (Vaginal Delivery) (Adult) Goal: Signs and Symptoms of Listed Potential Problems Will be Absent, Minimized or Managed () Signs and symptoms of listed potential problems will be absent, minimized or managed by discharge/transition of care (reference (Vaginal Delivery) (Adult) CPG). Outcome: Ongoing (Interventions Implemented as Appropriate) 10/21/16 0244 (Vaginal Delivery) Problems Assessed ( Vaginal Delivery) all Problems Present ( Vaginal Delivery) none Problem: (Adult) Goal: Signs and Symptoms of Listed Potential Problems Will be Absent, Minimized or Managed () Signs and symptoms of listed potential problems will be absent, minimized or managed by discharge/transition of care (reference (Adult) CPG). Outcome: Ongoing (Interventions Implemented as Appropriate) 10/20/16 0842 Problems Assessed () all Problems Present () none * Plan of Care - Niharika Mills RN - 10/20/2016 5:41 PM EST Problem: Patient Care Overview Goal: Plan of Care Review Outcome: Ongoing (Interventions Implemented as Appropriate) 10/20/1642 10/20/16 1733 Plan of Care Review Progress -- progress toward functional goals is gradual Coping/Psychosocial Plan Of Care Reviewed With patient;significant other -- OUTCOME EVALUATION NOTE: OUTCOME SUMMARY: VSS. assessment WNL, fundus firm U/-2. Taking ibuprofen and tylenol PRN for intermittentcramping with good relief. Pumping and visiting infant in ICN independently. Rubella titer drawn and sent to lab. PLAN MOVING FORWARD: Monitor VS, promote pumping, pain management INDIVIDUALIZED FALL PREVENTION INTERVENTIONS: Patient-specific fall risk factors per assessment: [current deficits]: None Assistance [level of assistance required for transfers and ambulation]: Independent Supervision [direct monitoring required during toileting and ADLs]: None Surveillance [continuous indirect monitoring]: Purposeful rounding Patient-specific fall prevention interventions for sensory deficits provided, if applicable: N/A CPG GOAL OUTCOME EVALUATION: Goal: Individualization & Mutuality Outcome: Ongoing (Interventions Implemented as Appropriate) 10/20/16 0034 Mutuality/Individual Preferences What Anxieties, Fears or Concerns Do You Have About Your Health or Care? baby What Questions Do You Have About Your Health or Care? How long do I stay here? What Information Would Help Us Give You More Personalized Care? none Goal: Fall Prevention-Safe Patient Handling Outcome: Ongoing (Interventions Implemented as Appropriate) 10/20/16 0842 10/20/16 1733 Daily Care Interventions Self-Care Promotion -- independence encouraged Activity and Safety Assistive Device -- None Positioning Body Position -- 30 degrees lateral position Bills Fall Risk History of Falling 0 -- Secondary Diagnosis 0 -- Ambulatory Aids 0 -- Intravenous Therapy/Heparin/Saline Lock 20 -- Gait/Transferring 0 -- Mental Status 0 -- Score 20 -- OTHER Bills Fall Risk Low -- Restraint Interventions Safety Promotion/Fall Prevention safety round/check completed -- Goal: Infection Control Outcome: Ongoing (Interventions Implemented as Appropriate) 10/20/16 0842 10/20/16 1733 Safety Interventions Isolation Precautions -- standard precautions maintained Infection Prevention rest/sleep promoted -- Coping Strategies Supportive Measures active listening utilized;relaxation techniques promoted;self-care encouraged -- Goal: Discharge Needs Assessment Outcome: Ongoing (Interventions Implemented as Appropriate) 10/20/161732 Discharge Needs Assessment Concerns To Be Addressed no discharge needs identified;denies needs/concerns at this time Readmission Within The Last 30 Days no previous admission in last 30 days Provider Choice List(s) Given no Equipment Needed After Discharge none Discharge Disposition still a patient Living Environment Transportation Available car;family or friend will provide Activity/Self Care Review of Systems Equipment Currently Used at Home none Current Health Anticipated Changes Related to Illness none Goal: Interdisciplinary Rounds/Family Conf Outcome: Ongoing (Interventions Implemented as Appropriate) 10/20/16 1733 Interdisciplinary Rounds/Family Conf Participants patient Problem: (Vaginal Delivery) (Adult) Goal: Signs and Symptoms of Listed Potential Problems Will be Absent, Minimized or Managed () Signs and symptoms of listed potential problems will be absent, minimized or managed by discharge/transition of care (reference (Vaginal Delivery) (Adult) CPG). Outcome: Ongoing (Interventions Implemented as Appropriate) 10/20/16 0842 (Vaginal Delivery) Problems Assessed ( Vaginal Delivery) all Problems Present ( Vaginal Delivery) pain Problem: (Adult) Goal: Signs and Symptoms of Listed Potential Problems Will be Absent, Minimized or Managed () Signs and symptoms of listed potential problems will be absent, minimized or managed by discharge/transition of care (reference (Adult) CPG). Outcome: Ongoing (Interventions Implemented as Appropriate) 10/20/16 0842 Problems Assessed () all Problems Present () none * Initial Assessments - Shawn Arevalo RN - 10/20/2016 12:19 PM EST Office of Care Management Initial Assessment SHAWN AREVALO RN reviewed record and discussed patient with Care Team. Source of Information: Bela & partner Sujey Ledbetter. Introduced self/reviewed role; services accepted. Reason for Hospitalization: Bela Koehler was admitted secondary to premature rupture of membranes who is now in active labor, and delivered her on 10/19/16. History reviewed. No pertinent past medical history. Hospitalizations Within the Past 30 Days: no Anticipated Length Of Stay (If known): 2 days post Current Decision-Making Capacity: Bela is her own decision maker Advance Care Planning: pt is a full code, no AD on file, pt declined offer for AD booklet. Current Coping/Education/Information Needs: pumping breast for MBM for infant Current Functional Ability: independent, ambulating well Functional Status Prior to Admission: independent with all ADLs Home Environment: Bela lives in [facility]. Sujey Ledbetter lives in [facility] with his previous son from another relationship and his mother. Social & Family Supports/Community Resources: Bela has good family support near her. Behavioral Health History: denies anxiety or depression. Substance Use/Abuse:Bela told the RN CM that she smoked THC during the . Cord tox is pending. Mandated report will be made to [facility]. Other Pertinent/Service Specific Information: na Health/Prescription Coverage: Primary Insurance: [place] Medicaid Secondary Insurance: na Prescription Coverage: na Preferred Pharmacy: un Other: na Primary Care Provider: Unknown None Patient/Caregiver Goals of Treatment: d/c home 2 days post Potential Needs for Transition of Care: Rehab/SNF: na Home Health: na DME: [employer] rojelio pump [facility]. Dialysis: na Community Resources: Has WIC , has food stamps Transportation: own car Other: offered Fuel to Care, map with directions to Norma's place, offered 3 cafeteria vouchers / day after d/c, in order to support breast feeding moms. Anticipated Barriers to Discharge/Special Considerations: none identified Plan: d/c home A member of the Care Management team will continue to monitor progress, follow for continuity of care and assist with transition of care planning. SHAWN AREVALO RN Pager: [phone] * L&D Delivery Note - Ting Rae MD - 10/20/2016 1:31 AM EST Delivery Note Bela Koehler is a 25 y.o. year old woman at 31w6d gestational age who presented with premature rupture of membranes in active labor and progressed quickly, nothing for analgesia. She was found to be complete at 2243 with the presenting part at +3 station. She pushed for 24 minutes and spontaneously delivered at 2310 hrs. The 's head was delivered in a controlled fashion. There was no nuchal cord. The body was delivered without incident over an intact perineum. A viable male was held below the level of the placenta and dried and stimulated for 45 seconds of delayed cord clamping and then handed off to waiting ICN staff. The infant had APGARS of 8 and 9 at 1 and 5 minutes and had a weight of 2050g. The cord was clamped in 2 places and transected. Cord bloodwas taken and cord gases were obtained and are shown below. The fundus became firm with massage andpitocin. The placenta delivered spontaneously after 12 minutes and contained a 3-vessel cord. Inspection of the vagina and perineum revealed a first degree perineal laceration which was repaired in layers with 3-0 vicryl suture as well as a right labial laceration that was repaired with a figure ofeight. The sulci were examined and found to be intact. No complications. Blood loss estimated at 200 ccs. She was in stable condition after delivery. Dr. Rae was present for the entire delivery without conflicting clinical responsibilities Ru Mares MD I was present for the entire delivery and agree with documentation above. .TING RAE MD Results for DENNY, BABY BOY ( ) as of 10/20/2016 01:36 Ref. Range 10/19/2016 23:15 pH Cord Art Unknown 7.22 pCO2 Cord Art Latest Units: mmHg 52 pO2 Cord Art Latest Units: mmHg 21 BE Cord Art Latest Units: mmol/L -6.9 O2HB Cord Art Latest Units: % 32.3 pH Cord Jacob Unknown 7.33 pCO2 Cord Jacob Latest Units: mmHg 37 pO2 Cord Jacob Latest Units: mmHg 29 BE Cord Jacob Latest Units: mmol/L -6.8 O2HB Cord Jacob Latest Units: % 62.6 Information for the patient's : Anita Koehler [[id number]] DELIVERY SUMMARY FOR Anita Koehler (please note there is a separate summary for each fetus) 10/19/2016 11:10 PM by Vaginal, Spontaneous Delivery Sex: male Gestational Age: 31w5d Labor Events labor?: Yes GBS colonized: unknown Risk factors: with risk factors steroids: Partial Course Cervical ripening date/time: Cervical ripening type Rupture date/time: 10/19/161744 Rupture type: premature rupture of membranes, spontaneous rupture of membranes Fluid color: clear Labor onset type: spontaneous onset of labor Augmentation: None Labor onset date/time: 10/19/161929 Maternal Delivery Complications: abruption Labor Event Times Labor onset date/time: 10/19/161929 Dilation complete date/time: 10/19/162242 Start pushing date/time: 10/19/20162245 Mother Delivery Episiotomy: None Perineal lacerations: 1st Repaired: Yes Periurethral laceration: bilateral Repaired: No Labial laceration: right Repaired: Yes Vaginal delivery est. blood loss (mL): 200 Surgical or additional est. blood loss (mL): 0 Combined est. blood loss (mL): 200 Repair suture: Synthetic Delayed Absorbable Number of repair packets: 2 Delivery ([place]) Delivery Date: 10/19/16 Delivery Time: 2309 Sex: Male Presentation: Vertex Position: Right Occiput Anterior Attempted ?: No Delivery Type: Vaginal Delivery Type (Specific): Vaginal, Spontaneous Delivery Shoulder Dystocia Shoulder dystocia present?: No Delivery Information Delivery Location: OR Delivering Clinician: RU MARES Staff Present: Yes Other Personnel: Provider Role RANDY THOMSON Delivery Nurse TING RAE Subassembly Supervisor ISSAC KING Delivery Assist MERLINE KHAN Resident Anesthesia Method: None Cord Vessels: 3 Vessels Complications: None Cord Blood Disposition: Lab Gases Sent?: Yes Cord Insertion: central Assessment & APGARS Living status: Yes Apgars 1 Minute: 5 Minute: 10 Minute 15 Minute 20 Minute Skin Color: 0 1 Heart Rate: 2 2 Reflex Irritability: 2 2 Muscle Tone: 2 2 Respiratory Effort: 2 2 Total: 8 9 Apgars Assigned By: Rivka JETER APRN Resuscitation Method: Suctioning Suctioning Method: Bulb syringe Resuscitation Comment: Placed on CPAP at ~2 mn of life Maternal [place] Feeding and Skin to Skin Maternal Choice for [place](s) Feeding on Admission: with Donor Human Milk or Expressed Breastmilk Supplementation Skin to skin initiation date/time: Reason skin to skin not initiated: [place] Acuity [place] Medications [place] Medications Given: vitamin K, erythromycin Naxalone Given?: No Measurements Weight: 2050 g Length: 0.46 m Placenta Date and Time: 10/19/20162321 Removal: Spontaneous Appearance: Intact Placenta Comment: lg clot - likely abruption Labor Length No data filed documented in this encounter Plan of Treatment Not on file documented as of this encounter Procedures Procedure Name Priority Date/Time Associated Diagnosis Comments RUBELLA ANTIBODY, IGG Routine 10/20/2016 2:43 PM EST DRUG SCREEN WITH CONFIRMATION, URINE (SEND OUT) Routine 10/20/2016 6:50 AM EST THC (MARIJUANA), URINE, CONFIRMATION Routine 10/20/2016 6:50 AM EST SPECIMEN TO PATHOLOGY (NON-OR) Routine 10/20/2016 12:15 AM EST SURGICAL PATHOLOGY REPORT Routine 10/20/2016 12:15 AM EST GROUP B STREP CULTURE SCREEN Routine 10/19/2016 10:30 PM EST ABO/RH TYPING Routine 10/19/2016 9:00 PM EST ANTIBODY SCREEN Routine 10/19/2016 9:00 PM EST TYPE AND SCREEN (MC/CGP/CONCHIS) Routine 10/19/2016 9:00 PM EST documented in this encounter Results * Rubella Antibody, IgG (10/20/2016 2:43 PM EST) Rubella Antibody IgG Positive Positive [facility] Comment: Please note: ??A positive result for this assay indicates that antibody levels are >or= 10.0 IU/mL and is considered to be an indicator of positive immune status. Blood specimen (specimen) 10/20/2016 2:43 PM EST 10/20/2016 3:16 PM EST Narrative Resulting Agency Comment Spec In Lab Ting Rae MD CHEMISTRY ORDERABLES Performing Organization Address City/State/[facility] Co de Phone Number [facility] [place] [place] [address] * THC (Marijuana), Urine Confirmation (10/20/2016 6:50 AM EST) U THC Conf Test ? Result ? Flag ??Unit ?? RefValue Carboxy-THC Confirmation, U ??Carboxy-THC- by GC/MS ?208 ?ng/mL ??Cutoff: 3.0 ??Carboxy-THC ?Positive. ?Interpretation ? -----ADDITIONAL INFORMATION----- ?This report is intended for use in clinical monitoring and ?management of patients. ??It is not intended for use in ?employment-rel ated testing. ?Test Performed by: ?[facility] [employer] ?[address] [place] [address] ?Biometrics Analyst: Jose M Rao II, M.D., Ph.D. [facility] Urine specimen (specimen) 10/20/2016 6:50 AM EST 10/20/2016 9:21 AM EST Narrative Resulting Agency Comment Spec In Lab Ting Rae MD LAB SEND OUT ORDERAB LES [facility] [place] [place] [address] * (ABNORMAL) Drug Screen with Confirmation, Urine (10/20/2016 6:50 AM EST) U LOY w/Conf Test ? Result ? Flag ??Unit ?? RefValue ------- Pain Clinic Survey, U ??Creatinine, U ?28.6 ? mg/dL ??Specific [place] ? 1.006 ??pH ? 6.3 ??Oxidants ? Negative ?Cutoff: 200 mg/L ??Comment ?Normal ??Amphetamines ? Negative ? ng/mL ??Cutoff: 500 ??Barbiturates ? Negative ? ng/mL ??Cutoff: 200 ??Benzodiazepines ?Negative ? ng/mL ??Cutoff: 100 ??Cocaine ?Negative ? ng/mL ??Cutoff: 150 ??Phencyclidine ?Negative ? ng/mL ??Cutoff: 25 ??Tetrahydrocannab inol ? Presumptive Positive ??@ ?ng/mL ??Cutoff: 50 ?Drug confirmation to follow. ??Presumptive Positive means ?that the screening method is positive, but the test needs ?to be run by a confirmatory method before being finalized. ? ---ADDITIONAL INFORMATION------- ?This report is intended for use in clinical monitoring or ?management of patients. ??It is not intended for use in ?employment-relat ed testing. ??Codeine ?Not Detected ? ng/mL ??Cutoff: 25 ?Tylenol 3 ??Ertopql-6-ciaw- ?Not Detected ? ng/mL ??Cutoff: 100 ?glucuronide ?Metabolite of codeine ??Morphine ? Not Detected ? ng/mL ??Cutoff: 25 ?Zofia Guzmán, MS Contin; Also a minor metabolite (10%) of ?codeine and can be seen in low concentrations (<2,000 ?ng/mL) with poppy seed ingestion. ??Plotswuh-2-vkcl- ? Not Detected ? ng/mL ??Cutoff: 100 ?glucuronide ?Metabolite of morphine ??6-monoacetylmorp davian ? Not Detected ? ng/mL ??Cutoff: 25 ?Metabolite of heroin ??Hydrocodone ?Not Detected ? ng/mL ??Cutoff: 25 ?Lortab, [place], Vicodin; Also a very minor metabolite of ?codeine and impurity (<1%) of oxycodone. ??Norhydrocodone ? Not Detected ? ng/mL ??Cutoff: 25 ?Metabolite of hydrocodone ??Dihydrocodeine ? Not Detected ? ng/mL ??Cutoff: 25 ?Metabolite of hydrocodone ??Hydromorphone ?Not Detected ? ng/mL ??Cutoff: 25 ?Dilaudid, Exalgo; Also a metabolite of hydrocodone and a ?minor (<5%) metabolite of morphine. ??Hydromorphone-3- beta- ?Not Detected ? ng/mL ??Cutoff: 100 ?glucuronide ?Metabolite of hydromorphone ??Oxycodone ?Not Detected ? ng/mL ??Cutoff: 25 ?Endocet, Percocet, Oxycontin ??Noroxycodone ? Not Detected ? ng/mL ??Cutoff: 25 ?Metabolite of oxycodone ??Oxymorphone ?Not Detected ? ng/mL ??Cutoff: 25 ?Numorphan, Opana; Also a metabolite of oxycodone. ??Ukakyxdzwqc-9-ye ta- ?Not Detected ? ng/mL ??Cutoff: 100 ?glucuronide ?Metabolite of oxymorphone ??Noroxymorphone ? Not Detected ? ng/mL ??Cutoff: 25 ?Metabolite of oxymorphone ??Fentanyl ? Not Detected ? ng/mL ??Cutoff: 2 ?Actiq, Duragesic, Fentora ??Norfentanyl ?Not Detected ? ng/mL ??Cutoff: 2 ?Metabolite of fentanyl ??Meperidine ? Not Detected ? ng/mL ??Cutoff: 25 ?Demerol ??Normeperidine ?Not Detected ? ng/mL ??Cutoff: 25 ?Metabolite of meperidine ??Naloxone ? Not Detected ? ng/mL ??Cutoff: 25 ?Narcan ??Lvsookcn-1-jkuz- ? Not Detected ? ng/mL ??Cutoff: 100 ?glucuronide ?Metabolite of naloxone ??Methadone ?Not Detected ? ng/mL ??Cutoff: 25 ?Dolophine ??EDDP ? Not Detected ? ng/mL ??Cutoff: 25 ?Metabolite of methadone ??Propoxyphene ? Not Detected ? ng/mL ??Cutoff: 25 ?Darvon, Darvocet ??Norpropoxyphene ?Not Detected ? ng/mL ??Cutoff: 25 ?Metabolite of propoxyphene ??Tramadol ? Not Detected ? ng/mL ??Cutoff: 25 ?Tradol, Ultram, Ultracet ??O-desmethyltrama dol ?Not Detected ? ng/mL ??Cutoff: 25 ?Metabolite of tramadol ??Tapentadol ? Not Detected ? ng/mL ??Cutoff: 25 ?Nucynta ??N-desmethyltapen tadol ?Not Detected ? ng/mL ??Cutoff: 50 ?Metabolite of tapentadol ??Tapentadol-beta- ? Not Detected ? ng/mL ??Cutoff: 100 ?glucuronide ?Metabolite of tapentadol ??Buprenorphine ?Not Detected ? ng/mL ??Cutoff: 5 ?Buprenex, Suboxone ??Norbuprenorphine ? Not Detected ? ng/mL ??Cutoff: 5 ?Metabolite of buprenorphine ??Norbuprenorphine ? Not Detected ? ng/mL ??Cutoff: 20 ?glucuronide ?Metabolite of buprenorphine ??Opioid Interpretation ?SEE COMMENTS ?No opioids were detected. The absence of expected drug(s) ?and/or drug metabolite(s) may indicate non-compliance, ?altered pharmacokinetics, inappropriate timing of specimen ?collection relative to drug administration, ?diluted/adultera tu urine, or limitations of testing. ? ---ADDITIONAL INFORMATION------- ?This test was developed and its performance characteristics ?determined by [facility] in a manner consistent with CLIA ?requirements. This test has not been cleared or approved by ?the U.S. Food and Drug Administration. ?Test Performed by: ?[facility] ?[address] [place] [address] ?Biometrics Analyst: Jose M Rao II, M.D., Ph.D.(A) [facility] Urine specimen (specimen) 10/20/2016 6:50 AM EST 10/20/2016 9:21 AM EST Narrative Resulting Agency Comment Spec In Lab Ting Rae MD URINE ORDERABLES [facility] [place] [place] [address] * Surgical Pathology Report (10/20/2016 12:15 AM EST) Final Diagnosis [id number] ?Location: BP; BP06; A The signing pathologist has (i) examined the relevant preparation(s) for the specimen(s) and (ii) rendered or confirmed the diagnosis(es). . ?Surgical Pathology DIAGNOSIS A - Third trimester placenta, 31 weeks, 378 grams, ?>90th percentile: ? 1. ??Unremarkable amnion and chorion ? 2. ??Villous maturation accelerated for gestational age ? 3. ??Unremarkable decidua ? 4. ??Unremarkable three vessel umbilical cord Electronically signed by: ??Jose M Fitch MD Verified: ??10/23/2016 ?Pathologist CLINICAL INFORMATION Specimen Submitted: A - Placenta Clinical History: PPROM 31w5d Clinical Diagnosis: Question abruption SPECIMEN PROCESSING A - Labeled/Fixative: Placenta, fresh. Qty/Size/Weight: Single, 21 x 18 x 2 cm, 378 grams. Tissue Description: Intact, discoid, coyle placenta. Membranes: [place], semitransparent with marginal insertion. Cord: 11.5 x 1.5 cm; three vessels; central insertion. Surface: Purple and clear. Maternal Surface: Intact with a 10 x 7 cm area of adherent blood clot. Parenchyma: Red, spongy, without gross lesions. Sections/Processin g: (1) membrane roll; (2) proximal and distal cord; (3-7) full thickness parenchyma; (8) maternal surface with clot. (R8) ??sns 10/23/2016 1:35 PM EST [facility] TISSUE SPECIMEN FROM [facility] / Unknown 10/20/2016 12:15 AM EST 10/20/2016 12:15 AM EST Merline Khan MD PATHOLOGY/CYTOLOGY ORDERABLES Performing Organization Address [facility] [place] [address] * Specimen to Pathology (NON-OR) (10/20/2016 12:15 AM EST) AP Specimen 10/20/2016 12:1 5 AM EST 10/20/2016 12:18 AM EST Narrative [facility] - 10/20/2016 12:18 AM EST Specimen requisition ordered. ??Separate Pathology report to follow Ting Rae MD PATHOLOGY/CYTOLOGY O RDERABLES Performing Organization Address [facility] [place] [address] * (ABNORMAL) Group B Strep Culture Screen (10/19/2016 10:30 PM EST) Group B Streptococcus Culture Beta Hemolytic Streptococci, Group B isolated D-Test Performed. (A) [facility] Organism Beta Hemolytic Streptococci, Group B(A) [facility] Pooled specimen from vaginal introitus and rectal swab (specimen) 10/19/2016 10:30 PM EST 10/20/2016 7:49 AM EST Comment:PENICILLIN ALLERGY?- >YES Narrative Resulting Agency Comment Spec In Lab Organism Antibiotic Method Susceptibility beta hemolytic Streptococci, Group B Clindamycin MELGOZA-ORTEZ SUSCEPTIBILITY METHOD Resistant Ting Rae MD MICROBIOLOGY - GENER AL ORDERABLES Performing Organization Address [facility] Co de Phone Number [facility] [place] [address] * Antibody screen (10/19/2016 9:00 PM EST) Ab Screen Interp Negative [facility] Expires at 2359 on: 10/22/2016 [facility] Blood specimen (specimen) 10/19/2016 9:00 PM EST 10/19/2016 9:26 PM EST Narrative Resulting Agency Comment Spec In Lab Ting Rae MD BLOOD BANK LAB ORDER REAGAN [facility] [place] [address] * ABO/Rh Typing (10/19/2016 9:00 PM EST) ABORH Type O Pos [facility] Blood specimen (specimen) 10/19/2016 9:00 PM EST 10/19/2016 9:26 PM EST Narrative Resulting Agency Comment Spec In Lab Ting Rae MD BLOOD BANK LAB ORDER REAGAN [facility] [place] [address] documented in this encounter Visit Diagnoses Diagnosis premature rupture of membranes (PPROM) with unknown onset of labor- Primary documented in this encounter Admitting Diagnoses Diagnosis premature rupture of membranes (PPROM) with unknown onset of labor documented in this encounter Administered Medications Inactive Administered Medications - up to 3 most recent administrations Medication Order MAR Action Action Date Dose Rate Site acetaminophen (TYLENOL) tablet 1,000 mg 1,000 mg, Oral, EVERY 6 HOURS PRN, Starting on Thu10/20/16 at 0014, Until Thu10/21/16 at 1126, Pain, - Moderate pain (pain scale 4-6). - Maximum dose of acetaminophen is 4000 mg from all sources in 24 hours., Recovery (Recovery-Hospital Unit), Routine Given 10/20/2016 4:50 AM EST 1,000 mg acetaminophen (TYLENOL) tablet 650 mg 650 mg, Oral, EVERY 4 HOURS PRN, Starting on Thu10/20/16 at 0014, Until Thu10/21/16 at 1126, Pain, - Mild pain (pain scale 1-3) - Maximum dose of acetaminophen is 4000 mg from all sources in 24 hours., Recovery (Recovery-Hospital Unit), Routine Given 10/20/2016 1:48 PM EST 650 mg ibuprofen (ADVIL;MOTRIN) tablet 600 mg 600 mg, Oral, EVERY 6 HOURS PRN, Starting on Thu10/20/16 at 0014, Until Thu10/21/16 at 1126, Pain, - Do not give if receiving ketorolac. - Mild to moderate pain (pain scale 1-6) - Maximum dose of 3,200 mg from all sources in 24 hours., Recovery (Recovery-Hospital Unit), Routine Given 10/21/2016 5:54 AM EST 600 mg Given 10/20/2016 10:42 PM EST 600 mg Given 10/20/2016 10:46 AM EST 600 mg ibuprofen (ADVIL;MOTRIN) tablet 800 mg 800 mg, Oral, EVERY 8 HOURS PRN, Starting on Thu10/20/16 at 0014, Until Thu10/21/16 at 1126, Pain, - Do not give if receiving ketorolac. - Severe pain (pain scale 7-10). - Maximum dose of 3,200 mg from all sources in 24 hours., Recovery (Recovery-Hospital Unit), Routine Given 10/20/2016 12:55 AM EST 800 mg lactated ringers infusion 100 mL/hr, Intravenous, CONTINUOUS, Starting on Thu10/19/16 at 2200, Until Thu10/20/16 at 0014 New Bag 10/19/2016 9:33 PM EST 100 mL/hr 100 mL/hr magnesium sulfate 20 g/500 mL infusion 1 g/hr (25 mL/hr), Intravenous, CONTINUOUS, Starting on Thu10/19/16 at 2130, Until Thu10/20/16 at 0014, Routine New Bag 10/19/2016 9:29 PM EST 1 g/hr 25 mL/ hr magnesium sulfate in water 20 gram/500 mL (4 %) infusion 1 dose, Starting on Thu10/19/16 at 2115, Until Thu10/19/16 at 2129, ISSAC KING: cabinet override ondansetron (ZOFRAN) injection 4 mg 4 mg, Intravenous, EVERY 8 HOURS PRN, Starting on 10/19/16 at 2201, Until Thu10/20/16 at 0014, Nausea, Routine Given 10/19/2016 10:28 PM EST 4 mg oxytocin (PITOCIN) 30 units in sodium chloride 0.9% 500 mL infusion 30 Units (500 mL), Intravenous, at 500 mL/hr, Administer over 1 Hours, ONCE, 1 dose, On Thu10/20/16 at 0030, ., Routine New Bag 10/19/2016 11:12 PM EST 30 Units 50 0 mL/hr sodium chloride 0.9 % flush 5 mL 5 mL, Intravenous, 2 TIMES DAILY, First dose on 10/19/16 at 2130, Until Discontinued, Routine Given 10/19/2016 9:28 PM EST 10 mLs vancomycin 1 g in 0.9 % sodium chloride 200 mL 1,000 mg (1 g), Intravenous, EVERY 12 HOURS, 1 dose, First dose on 10/19/16 at 2130, Administer over 60 Minutes, Until delivery for GBS prophylaxis., Indication for (Active or Suspected): Prophylaxis Given 10/19/2016 9:28 PM EST 1,000 mg documented in this encounter Active and Recently Administered Medications Times are shown in EST. Scheduled Medication Order 10/19/2016 10/20/2016 10/21/2016 oxytocin (PITOCIN) 30 units in sodium chloride 0.9% 500 mL infusion (COMPLETED) 30 Units (500 mL), Intravenous, at 500 mL/hr, Administer over 1 Hours, ONCE, 1 dose, On Thu10/20/16 at 0030, ., Routine 2311 (New Bag - Provider: Randy Thomson RN) sodium chloride 0.9 % flush 5 mL (CANCELED) 5 mL, Intravenous, 2 TIMES DAILY, First dose on 10/19/16 at 2130, Until Discontinued, Routine 2127 (Given - Provider: Randy Thomson RN) vancomycin 1 g in 0.9 % sodium chloride 200 mL (COMPLETED)(Linked Group 1) 1,000 mg (1 g), Intravenous, EVERY 12 HOURS, 1 dose, First dose on 10/19/16 at 2130, Administer over 60 Minutes, Until delivery for GBS prophylaxis., Indication for (Active or Suspected): Prophylaxis 2127 (Given - Provider: Randy Thomson RN) Continuous Medication Order 10/19/2016 10/20/2016 10/21/2016 lactated ringers infusion (CANCELED) 100 mL/hr, Intravenous, CONTINUOUS, Starting on Thu10/19/16 at 2200, Until Thu10/20/16 at 0014 2133 (New Bag - Provider: Randy Thomson, RN) magnesium sulfate 20 g/500 mL infusion (CANCELED) 1 g/hr (25 mL/hr), Intravenous, CONTINUOUS, Starting on Thu10/19/16 at 2130, Until Thu10/20/16 at 0014, Routine 2128 (New Bag - Provider: Randy Thomson, RN) PRN Medication Order 10/19/2016 10/20/2016 10/21/2016 acetaminophen (TYLENOL) tablet 1,000 mg(Linked Group 2) 1,000 mg, Oral, EVERY 6 HOURS PRN, Starting on Thu10/20/16 at 0014, Until Thu10/21/16 at 1126, Pain, - Moderate pain (pain scale 4-6). - Maximum dose of acetaminophen is 4000 mg from all sources in 24 hours., Recovery (Recovery-Hospital Unit), Routine 0450 (Given - Provider: Emilee Hines RN)1348 (See Alternative - Provider: Niharika Mills RN) acetaminophen (TYLENOL) tablet 650 mg(Linked Group 2) 650 mg, Oral, EVERY 4 HOURS PRN, Starting on Thu10/20/16 at 0014, Until Thu10/21/16 at 1126, Pain, - Mild pain (pain scale 1-3) - Maximum dose of acetaminophen is 4000 mg from all sources in 24 hours., Recovery (Recovery-Hospital Unit), Routine 0450 (See Alternative - Provider: Emilee Hines RN)1348 (Given - Provider: Niharika Mills RN) glycerin-witch pino (TUCKS) 12.5-50 % pads Topical (Top), 4 TIMES DAILY PRN, Irritation, perineal pain, Starting on Thu10/20/16 at 0014, Until Thu10/21/16 at 1126, Recovery (Recovery-Hospital Unit) ibuprofen (ADVIL;MOTRIN) tablet 600 mg(Linked Group 3) 600 mg, Oral, EVERY 6 HOURS PRN, Starting on Thu10/20/16 at 0014, Until Thu10/21/16 at 1126, Pain, - Do not give if receiving ketorolac. - Mild to moderate pain (pain scale 1-6) - Maximum dose of 3,200 mg from all sources in 24 hours., Recovery (Recovery-Hospital Unit), Routine 0055 (See Alternative - Provider: Randy Thomson RN)1046 (Given - Provider: Niharika Mills RN)2242 (Given - Provider: Randa Higuera RN) 0554 (Given - Provider: Randa Higuera RN) ibuprofen (ADVIL;MOTRIN) tablet 800 mg(Linked Group 3) 800 mg, Oral, EVERY 8 HOURS PRN, Starting on Thu10/20/16 at 0014, Until Thu10/21/16 at 1126, Pain, - Do not give if receiving ketorolac. - Severe pain (pain scale 7-10). - Maximum dose of 3,200 mg from all sources in 24 hours., Recovery (Recovery-Hospital Unit), Routine 005 (Given - Provider: Randy Thomson RN)1046 (See Alternative - Provider: Niharika Mills RN)2242 (See Alternative - Provider: Randa Higuera, JERED) 0554 (See Alternative - Provider: Randa Higuera RN) ondansetron (ZOFRAN) injection 4 mg (CANCELED) 4 mg, Intravenous, EVERY 8 HOURS PRN, Starting on Thu10/19/16 at 2201, Until Thu10/20/16 at 0014, Nausea, Routine 2228 (Given - Provider: Randy Thomson RN) Linked Groups Order Group 1: vancomycin 1 g in 0.9 % sodium chloride 200 mL (COMPLETED)Jump to med 1,000 mg (1 g), Intravenous, EVERY 12 HOURS, 1 dose, First dose on Thu10/19/16 at 2130, Administer over 60 Minutes, Until delivery for GBS prophylaxis., Indication for (Active or Suspected): Prophylaxis Followed by vancomycin 1 g in 0.9 % sodium chloride 200 mL (CANCELED) 1,000 mg (1 g), Intravenous, EVERY 12 HOURS, First dose on Thu10/20/16 at 0930, Until Discontinued, Administer over 60 Minutes, Until delivery for GBS prophylaxis., Indication for (Active or Suspected): Prophylaxis Group 2: acetaminophen (TYLENOL) tablet 650 mgJump to med 650 mg, Oral, EVERY 4 HOURS PRN, Starting on Thu10/20/16 at 0014, Until Thu10/21/16 at 1126, Pain, - Mild pain (pain scale 1-3) - Maximum dose of acetaminophen is 4000 mg from all sources in 24 hours., Recovery (Recovery-Hospital Unit), Routine Or acetaminophen (TYLENOL) tablet 1,000 mgJump to med 1,000 mg, Oral, EVERY 6 HOURS PRN, Starting on Thu10/20/16 at 0014, Until Thu10/21/16 at 1126, Pain, - Moderate pain (pain scale 4-6). - Maximum dose of acetaminophen is 4000 mg from all sources in 24 hours., Recovery (Recovery-Hospital Unit), Routine Group 3: ibuprofen (ADVIL;MOTRIN) tablet 600 mgJump to med 600 mg, Oral, EVERY 6 HOURS PRN, Starting on Thu10/20/16 at 0014, Until Thu10/21/16 at 1126, Pain, - Do not give if receiving ketorolac. - Mild to moderate pain (pain scale 1-6) - Maximum dose of 3,200 mg from all sources in 24 hours., Recovery (Recovery-Hospital Unit), Routine Or ibuprofen (ADVIL;MOTRIN) tablet 800 mgJump to med 800 mg, Oral, EVERY 8 HOURS PRN, Starting on Thu10/20/16 at 0014, Until Thu10/21/16 at 1126, Pain, - Do not give if receiving ketorolac. - Severe pain (pain scale 7-10). - Maximum dose of 3,200 mg from all sources in 24 hours., Recovery (Recovery- Hospital Unit), Routine documented in this encounter Care Teams Out Patient Therapist Relationship Specialty Start Date End Date Unknown None PCP - General 11/07/10 07/01/23 documented as of this encounter
--- OUTSIDE RECORDS SUMMARY | 2024-12-20 20:31 | XMS_ITS | Continuity of Care Document ---
Author Organization [facility], Isabell Manuel Address [address] [place] [address] Assessment Encounter Date Assessment Date Assessment LastModified by Organization Details LastModified Time 10/27/2024 10/27/2024 - ADHD medication adjustment: The patient reports that the current dosage of Adderall (amphetamine/dex troamphetamine) (40 mg daily) feels excessive. The patient has been taking 20 mg and feels that a dosage between 20 mg and 40 mg might be more suitable. (Attention-Defic it/Hyperactivity Disorder, predominantly inattentive presentation) - Elevated Blood pressure reading: Plan: - Recheck BP tomorrow. - Prescribe 30 mg Adderall (amphetamine/dex troamphetamine) with 20 mg extended release in the morning and 10 mg midafternoon. However, they will held until EKG and BP recheck are done. - Advise not to take the 10 mg dose past 3 PM. - Monitor response to adjusted dosage. [email or web address] Not available 10/27/2024 14:53:35 Plan of Treatment Reminders Order Date Submit Date Provider Last Modified By Organization Details Last Modified Time Details Appointments None recorded. Lab None recorded. Referral None recorded. Procedures None recorded. Surgeries None recorded. Imaging electrocard iogram 2023 024 [email or web address] Isabell Manuel, [address], [place], [address], 13:13:15 Medication Orders None recorded. Patient Targets Encounter Date Encounter Id Patient Goals Patient Target Last Modified By Organization Details Last Modified Time Avoid illicit drug use.Adhere to medication regimen [email or web address] Not available 10/27/2024 14:54:13 Patient Instructions Encounter Date Encounter Id Patient Instructions Last Modified By Organization Details Last Modified Time 10/27/2024 [id number] - Try taking a 2 0 milligram extended release Adderall (amphetamine/dext roamphetamine) in the morning and a 10 milligram mid-afternoon, but do not take the 10 milligram past 3 PM. - Urine sample provided during the visit. - Let the physician know how the new medication dosage is working. Time spent with patient was >45 minutes performing evaluation and medication management. [email or web address] Not available 10/27/2024 16:56:29 Reason for Referral None Reported. Results Created Date Observation Date Name Description Value Unit Range Abnormal Flag Note LastModifiedBy Organization Detail LastModifiedTime 10/27/20 24 10/28/2024 elect rocar diogr am No observ ation record ed. [email or web address] Isabell Marshall, [place], [address], 10/28/2024 14:36:21 11/02/20 elect rocar diogr am No observ ation record ed. [email or web address] Isabell Marshall, [place], [address], 11/02/2024 12:21:55 Result Notes None recorded. Problems Name Problem SNOMED Code Status Onset Date Resolution Date Notes Provider Name and Address Organization Details Recorded Time Hypertensive disorder 68407715 Active 2023 Isabell Manuel APRN, CLINICAL PHARMACOLOGIST-C, PMHNP-C, DNP [address] [place], [address], [facility] Manuel [facility] 4 12:48:06 Essential hypertension 40739972 Active 2024 Isabell Manuel APRN, CLINICAL PHARMACOLOGIST-C, PMHNP-C, DNP [address] [place], [address], [facility] 5 12:16:50 Strain of muscle and/or tendon of thigh 437687959 Active 2024 Isabell Manuel APRN, CLINICAL PHARMACOLOGIST-C, PMHNP-C, DNP [address] [place], [address], [facility] 5 12:26:42 Attention deficit hyperactivity disorder 350684196 Active [address] [place], [address], [facility] 4 09:16:34 Insomnia 530301621 Active [address] [place], [address], [facility] 4 09:16:44 Low back pain 844649584 Active [address] [place], [address], [facility] 4 09:17:00 Generalized anxiety disorder 86539526 Active [address] [place], [address], [facility] 4 09:17:09 Degeneration of lumbar intervertebral disc 53436372 Active [address], [place], [address], [facility] 4 09:17:40 Increased blood pressure 10197638 Active 2023 Isabell Manuel, [employer], CLINICAL PHARMACOLOGIST-C, PMHNP-C, DNP [address], [place], [address], [facility] 4 14:34:49 Problem Notes None recorded. Procedures Surgical History None recorded. Imaging Results Imaging Date Name Status LastModified by Organization Details LastModified Time 10/28/2024 electrocardiogram completed [email or web address], [place], [address], 10/28/2024 14:36:21 Procedure Notes None recorded. Medical Equipment None Reported. Allergies Allergen ID Allergen Name Allergen Category Reaction Reaction Severity Criticality Documentation Date Start Date Code Code System Note Provider Name and Address Organization Details Recorded Time 7 Product containin g penicilli n and antibioti c (product) medicatio n hives Not available Not available 10/27/2024 [address] [place], [address], [facility] 4 09:15:44 8 acetamino phen / hydrocodo ne medicatio n nausea Not available Not available 10/27/2024 86657 [address] [place], [address], [facility] 4 09:16:05 9 amoxicill in medicatio n hives Not available Not available 10/27/2024 [address], [place], [address], [facility] 4 09:16:14 Medications Name Sig Start [...] Address Organization Details Last Updated DateTime 4 175.26 cm 22.6 kg/m2 75992.9 1 g 97 % 97 % 101 /min 97.8 [degF] 153 mm[Hg] 101 mm[Hg] [address], [place], [address], [facility] 4 14:09:06 Social History None recorded. Functional Status None recorded. Mental Status None recorded. Family History Nothing Reported. Medical History No medical history recorded. Gynecological HistoryNo gynecological history recorded. Obstetrics History GPAL:G 0 P 0 0 0 0 Past Encounters Encounter ID Performer Location Encounter Start Date Encounter Closed Date Diagnosis/Indication Diagnosis SNOMED-CT Code Diagnosis ICD10 Code Diagnosis Note [id number] Isabell Manuel APRN, CLINICAL PHARMACOLOGIST-C, PMHNP-C, DNP [address] [place] [address] 10/27/2024 13:40:08 10/27/2024 14:30:55 Disorders of attention and motor control 477859811 F90.0 Prescribe 30 mg Adderall (amphetami ne/dextroa mphetamine ) with 20 mg extended release in the morning and 10 mg midafterno on. Advise not to take the 10 mg dose past 3 PM. Monitor response to adjusted dosage. Increased blood pressure 93556029 R03.0 Recheck BP x 24-48 hours. Health Concerns Section Related Observation LastModified by Organization Detai ls LastModified Time None Recorded Concern Status LastModified by Organization Details LastModified Time None Recorded Payers Encounter Date Sequence Insurance Name Policy Number Policy Campbell Covered Member ID Campbell Member ID Guarantor Name 10/27/2024 1 [facility] (MEDICAID) Raven Koehler [id number] Raven Koehler Notes Date Note Type Note Provider Name and Address Organization Details Recorded Time 10/27/2024 text/html Experiencing iss ues with car brakes, the patient has been reporting this to [facility] since March. The brakes seem to be sticking, and there has been a noticeable decrease in fuel efficiency from 28-32 miles per gallon to 19. Despite multiple service visits over the summer, including paying for an alignment, the problem remains unresolved. Recently, the brakes have begun making grinding noises, raising concerns about safety, particularly in snowy conditions. Additionally, the patient is managing their Adderall (amphetamine/dextro amphetamine) dosage. Previously taking 40 mg a day, split into two 20 mg doses, they found it excessive and ceased taking it. They are contemplating a 30 mg total daily dose, possibly divided into a 20 mg extended release in the morning and a 10 mg instant release in the afternoon. Isabell Manuel APRN, CLINICAL PHARMACOLOGIST-C, PMHNP-C, DNP [address] [place] [address] , [place], [address], [facility] Manuel [facility] 10/27/2024 17:14:28 OBGyn Episode No OBEpisode recorded.
[2024-12-20] MEDS: Clindamycin 150 MG CAP 300 MG PO (20:36)
[2024-12-20] MEDS: Acetaminophen 325 MG TAB 650 MG PO (21:02)
[2024-12-20 21:12] LABS: Bilirubin Small (Negative); Blood Negative (Negative); Clarity Clear (Clear); Glucose Negative (Negative); Ketones 15 mg/dL (Negative); Leukocyte Esterase Trace (Negative); Nitrite Negative (Negative); pH 6.5 (5-8)
[2024-12-20 21:23] LABS: Bacteria Negative HPF (Negative); C & S Indicated? No/Sq. Contamination; Casts Negative LPF (Negative); Crystals Negative HPF (Negative); Epithelial Cells Many HPF (Negative); Mucus Negative (Negative); RBC Negative HPF (0-2); WBC 0-2 HPF (0-5)
[2024-12-20] MEDS: cefTRIAXone 1 GM/50 ML BAG IVPB (22:20)
[2024-12-20] MEDS: Normal Saline 500 ML 1000 ML IV (22:20)
[2024-12-20] MEDS: Ketorolac 15 MG/ML VIAL IVP (22:21)
[2024-12-20 22:24] LABS: HCT 39.2 % (36.0-46.0); HGB 13.5 g/dL (11.2-15.7); Lactate 3.2 mmol/L (<or=2.0); MCH 30.5 pg (27.0-33.0); MCHC 34.4 % (32.0-36.0); MCV 89 fL (80-95); MPV 9.9 fL (8.0-11.0); Platelet Count 148 10^3/uL (130-400); RBC 4.43 10^6/uL (3.93-5.22); RDW-SD 39.5 fL; WBC 6.96 10^3/uL (4.4-10.8)
--- NOTE | 2024-12-20 22:25 | DI.VRAD_ITS ---
PROCEDURE INFORMATION: Exam: XR Chest Exam date and time: 12/20/2024 9:17 PM Age: 34 years old Clinical indication: Cough and shortness of breath TECHNIQUE: Imaging protocol: Radiologic exam of the chest. Views: 2 views. COMPARISON: CR XR CHEST 2V PA LATERAL 11/28/2022 8:23 PM FINDINGS: Lungs: There is a large masslike opacity projecting over the right upper lobe. There are scattered smaller patchy opacities projecting over the left lung. Pleural spaces: No pleural effusion or pneumothorax is demonstrated. Heart/Mediastinum: The heart appears normal in size. Bones/joints: Visualized bony structures appear grossly intact. IMPRESSION: Large masslike opacity projecting over the right upper lobe. Right upper lobe pneumonia is suspected primarily in a young patient. Clinical correlation is recommended as well as posttreatment follow-up to document resolution. Dictated and Authenticated by: Shalom Manzo MD. Orderin Tyron Jasso MD
[2024-12-20 22:39] LABS: ALT 21 U/L (14-59); AST 16 U/L (15-37); Albumin 3.4 g/dL (3.4-5.0); Alkaline Phosphatase 58 U/L (46-116); Anion Gap 10.4 mmol/L (3-11); BUN 12 mg/dL (7-18); Bilirubin, Total 0.83 mg/dL (0.2-1.0); CO2 27.6 mmol/L (21.0-32.0); CREATININE 0.8 mg/dL (0.55-1.02); Calcium 8.5 mg/dL (8.5-10.1); Chloride 94 mmol/L (98-107); Estimated GFR 97.87 (mL/min/1.73m2); Glucose 127 mg/dL (74-106); Potassium 3.7 mmol/L (3.5-5.1); Sodium 132 mmol/L (136-145); Total Protein 7.3 g/dL (6.4-8.2)
[2024-12-20] MEDS: Normal Saline 500 ML IV (22:45)
[2024-12-20 22:54] LABS: Absolute Lymphocyte Count 0.28 10^3/uL (1.2-3.4); Absolute Monocyte Count 0.42 10^3/uL (0.1-0.8); Absolute Neutrophil Count 6.26 10^3/uL (1.2-6.7); Bands % 12 %
[2024-12-20 22:55] LABS: Diff Comment Manual Differential; RBC Morphology Normal
[2024-12-20] MEDS: Cephalexin 500 MG CAP, 2 CAPS/BTL PO (23:21)
[2024-12-20] MEDS: Ondansetron O.D.T. 4 MG TABEF, 3 TABS/BTL PO (23:21)
[2024-12-20] MEDS: Doxycycline Hyclate 100 MG, 2 CAPS/BTL PO (23:21)
[2024-12-20] MEDS: Benzonatate 100 MG CAP PO (23:25)
--- NOTE | 2024-12-21 15:07 | NUR.NOTE ---
Nursing Note: Lab called with critical values from the blood cultures- both blood cultures were positive for aerobic and gram positive cocci in chains in both cultures. Tracie Zelaya notified of results.
--- NOTE | 2024-12-21 15:15 | W.ED.FU ---
Follow Up Plan: I called Ms. Koehler at 1515 on 12/21/2024 and made her aware that she has positive blood cultures. It appears she was evaluated for pneumonia and strep yesterday she has been taking meds but feels very weak and tired. She is waiting for her significant other to return with the car and then she will be transported back to the emergency department for assessment
== END 2024-12-20 23:42 | disposition home or self-care (01) ==
PROVIDERS: Emergency Provider Registered Nurse Emergency
DX: J18.9 Pneumonia, unspecified organism (principal); J02.0 Streptococcal pharyngitis
CPT/HCPCS: 36415; 80053; 81025; 83690; 87040; 87077; 87426; 87880; 93005; 96361; 96365; 96375; 99285; 71046; 80329; 81003; 81015; 83605; 83735; 85025; 93010; 99284; J0696; J1885

== ENCOUNTER 2024-12-21 16:19 | Inpatient (IN) | payer MEDICAID, SELFPAY ==
[2024-12-21] VITALS (50 sets, daily range): BP systolic 93–162; BP diastolic 41–112; PULSE 74–120; RESP 15–40; TEMP 37–37.3; O2SAT 80–100
[2024-12-21 17:42] LABS: Lactate 1.9 mmol/L (<or=2.0)
[2024-12-21] MEDS: cefTRIAXone 2 GM/50 ML BAG IVPB (17:42)
[2024-12-21 17:44] LABS: HCT 38.5 % (36.0-46.0); HGB 13.3 g/dL (11.2-15.7); MCH 30.2 pg (27.0-33.0); MCHC 34.5 % (32.0-36.0); MCV 87 fL (80-95); MPV 9.8 fL (8.0-11.0); Platelet Count 150 10^3/uL (130-400); RBC 4.41 10^6/uL (3.93-5.22); RDW 12.2 % (11.7-14.6); RDW-SD 39.2 fL; WBC 8.56 10^3/uL (4.4-10.8)
[2024-12-21] MEDS: Acetaminophen 500 MG TAB 1000 MG PO (17:47)
[2024-12-21 17:52] LABS: INR 1.2 (0.9-1.1); Prothrombin Time 11.7 sec (9.1-11.1)
[2024-12-21] MEDS: AZITHROMYCIN 500 MG in Normal Saline 250 ML 250 MG IVPB (17:56)
[2024-12-21] MEDS: Lactated Ringers 500 ML 1000 ML IV (17:57)
[2024-12-21 18:04] LABS: ALT 22 U/L (14-59); AST 17 U/L (15-37); Absolute Neutrophil Count 8.22 10^3/uL (1.2-6.7); Alkaline Phosphatase 64 U/L (46-116); Anion Gap 6.9 mmol/L (3-11); BUN 10 mg/dL (7-18); Bands % 14 %; Bilirubin, Total 0.71 mg/dL (0.2-1.0); CO2 30.1 mmol/L (21.0-32.0); CREATININE 0.8 mg/dL (0.55-1.02); Calcium 8.8 mg/dL (8.5-10.1); Chloride 96 mmol/L (98-107); Estimated GFR 97.87 (mL/min/1.73m2); Glucose 105 mg/dL (74-106); Potassium 3.4 mmol/L (3.5-5.1); Sodium 133 mmol/L (136-145); Total Protein 7.1 g/dL (6.4-8.2); Troponin I 8 ng/L (<or=51)
[2024-12-21 18:05] LABS: Absolute Lymphocyte Count 0.26 10^3/uL (1.2-3.4); Absolute Monocyte Count 0.09 10^3/uL (0.1-0.8); Atypical Lymphocytes % 0 %; Diff Comment Manual Differential; RBC Morphology Normal
[2024-12-21 18:11] LABS: Procalcitonin 6.97 ng/mL
[2024-12-21] MEDS: HYDROmorphone 2 MG/ML SYR 0.5 MG IVP (18:44)
--- NOTE | 2024-12-21 19:02 | W.ED.GENAD ---
Discharge Plan Disposition Patient Disposition: Admit to [facility] Condition: Stable Discharge Details Chief Complaint: GenMedical Clinical Impression: Sepsis, Streptococcal sore throat, Right upper lobe pneumonia, Bacteremia Primary Care Provider: Unknown,Unknown ED Provider: Marilyn Cat Home Meds and New Rx's Prescriptions: No Action dextroamphetamine-amphetamine [Adderall] 20 mg tablet 20 mg PO DAILY oxycodone 10 mg tablet 10 mg PO ONCE PRN benzonatate 100 mg capsule 100 mg PO BID-TID PRN (Reason: cough) Qty: 10 0RF Rx Instructions: Take 1 capsule up to 2-3 times daily as needed for cough doxycycline hyclate 100 mg tablet 100 mg PO BID 10 Days Qty: 20 0RF cephalexin 500 mg tablet 500 mg PO BID 10 Days Qty: 20 0RF ibuprofen 600 mg Tablet 600 mg PO Q6H PRN PRNQty: 60 0RF HPI General Mode of arrival: ambulatory. Date/Time Provider Initiated Documentation: 12/21/24 16:45. Limitations to Documentation: no limitations. Information obtained by: patient and old records reviewed. HPI Narrative: HPI: This is a 34-year-old female patient returning to the emergency department for positive blood cultures. She was seen here yesterday and was noted to have a right upper lobe pneumonia, a positive strep pharyngitis test, and was sent home on cephalexin and doxycycline. The patient reports that she has been taking these antibiotics but has not felt better, and had 2 positive blood cultures with gram-positive cocci in chains. The patient reports that she is primarily experiencing pain in her right sided chest, has to lay on her left side, continues to have a cough that is productive of blood-tinged sputum. She does not think that she has had a fever at home. Exam: Gen: Awake and alert, appears acutely unwell and uncomfortable HEENT: Non-icteric sclera, conjunctiva noninjected. Posterior pharynx with erythema but no significant exudates, no peritonsillar swelling or asymmetry Neck: Supple, full range of motion without meningismus Lungs: No apparent respiratory distress, normal respiratory effort. Lung sounds with rhonchi most prominent in the right upper CV: Appears well perfused, heart with tachycardic rate, regular rhythm Abdomen: Non-distended, soft MSK: Moves 4 extremities without apparent limitation in ROM Skin: Visualized skin without rashes, cyanosis. Neuro: Normal Gait, no obvious focal deficits or facial asymmetry. Speaks in full, clear sentences. Psych: Appropriate for situation. MDM: This is a 34-year-old female patient diagnosed yesterday with pneumonia and strep pharyngitis presenting for positive blood cultures and ongoing infectious symptoms. The patient does at this time meet criteria for sepsis given her tachycardia and tachypnea, likely due to bacteremia. I see no evidence on my physical examination of peritonsillar abscess or deep space neck infection. Considered dehydration, metabolic and electrolyte derangement. The patient has had an x-ray that definitively identified the right upper lobe pneumonia, and I do not see an indication to proceed with advanced imaging studies. We will provide the patient with a liter of IV fluid, and obtain laboratory studies to include repeat blood cultures, lactate, CBC, CMP, magnesium, and I will provide the patient with a dose of ceftriaxone and azithromycin. ED Course: I independently interpreted the laboratory studies, which show no significant leukocytosis, anemia, or thrombocytopenia. The chemistry panel is without evidence of electrolyte abnormality other than a mildly low potassium to 3.4, kidney dysfunction, or liver injury. Pro-Jatin is normal, troponin normal, lactate 1.9. The patient did have some increasing pain for which I provided her with Tylenol and Dilaudid to good effect. The patient's heart rate improved significantly with fluids, and she never became hypotensive. I reached out to our admitting hospitalist who is graciously accepted this patient for admission for ongoing workup and management of her sepsis without severe sepsis or septic shock, bacteremia, and her strep pharyngitis and right upper lobe pneumonia. She remained hemodynamically improved while under my care, transferred to the floor without incident. Marilyn Cat MD Related Data Home Medications ?Medication ?Instructions ?Recorded ?Confirmed ibuprofen 600 mg tablet 600 mg PO Q6H PRN PRN #60 tabs 12/26/23 12/21/24 dextroamphetamine-amphetamine 20 20 mg PO DAILY 02/14/24 12/21/24 mg tablet (Adderall) oxycodone 10 mg tablet 10 mg PO ONCE PRN 02/14/24 12/21/24 benzonatate 100 mg capsule 100 mg PO BID-TID PRN cough #10 12/20/24 12/21/24 caps cephalexin 500 mg tablet 500 mg PO BID 10 days #20 tabs 12/20/24 12/21/24 doxycycline hyclate 100 mg tablet 100 mg PO BID 10 days #20 tabs 12/20/24 12/21/24 Previous Rx's ?Medication ?Instructions ?Recorded ibuprofen 600 mg tablet 600 mg PO Q6H PRN PRN #60 tabs 12/26/23 benzonatate 100 mg capsule 100 mg PO BID-TID PRN cough #10 12/20/24 caps cephalexin 500 mg tablet 500 mg PO BID 10 days #20 tabs 12/20/24 doxycycline hyclate 100 mg tablet 100 mg PO BID 10 days #20 tabs 12/20/24 Allergies Allergy/AdvReac Type Severity Reaction Status Date / Time amoxicillin Allergy Intermediate Skin Rash Verified 12/21/24 16:42 Penicillins Allergy Intermediate rash with Verified 12/21/24 16:42 amoxicillin General Stated Complaint: GenMedical CATARINO: 3 Course Vital Signs Vital signs: Vital Signs Temperature 37.1 C 12/21/24 16:37 Pulse 109 H 12/21/24 16:37 Respiratory Rate 18 12/21/24 16:37 Blood Pressure 102/45 L 12/21/24 16:37 Pulse Oximetry 97 12/21/24 16:37 Temperature 37.1 C 12/21/24 16:41 Temperature Source Tympanic 12/21/24 16:41 Pulse 109 H 12/21/24 16:41 Respiratory Rate 18 12/21/24 16:41 Blood Pressure 102/45 L 12/21/24 16:41 Blood Pressure Position Sitting 12/21/24 16:41 Pulse Oximetry 97 12/21/24 16:41 Oxygen Delivery Method Room Air 12/21/24 16:41 Oxygen Flow Rate 0 12/21/24 16:41 Pain Level 10 12/21/24 18:44 Lab/Test Results Lab/Test Results: 12/21/24 18:00 Blood Blood Culture - Pending 12/21/24 17:35 Blood Blood Culture - Pending Laboratory Tests Range/Units 12/21/24 17:35 WBC (4.4-10.8) 10^3/uL 8.56 RBC (3.93-5.22) 10^6/uL 4.41 Hgb (11.2-15.7) g/dL 13.3 Hct (36.0-46.0) % 38.5 MCV (80-95) fL 87 MCH (27.0-33.0) pg 30.2 MCHC (32.0-36.0) % 34.5 RDW (11.7-14.6) % 12.2 Plt Count (130-400) 10^3/uL 150 MPV (8.0-11.0) fL 9.8 Immature Gran % % 0.0 Neutrophils % % 82.0 Band Neutrophils % % 14 Lymphocytes % % 3.0 Atypical Lymphs % % 0 Monocytes % % 1.0 Eosinophils % % 0.0 Basophils % % 0.0 Nucleated RBC % (0.0-0.3) % 0.0 Absolute Neutrophils (1.2-6.7) 10^3/uL 8.22 H Absolute Lymphocytes (1.2-3.4) 10^3/uL 0.26 L Absolute Monocytes (0.1-0.8) 10^3/uL 0.09 L Absolute Eosinophils (0.0-0.7) 10^3/uL 0.00 Absolute Basophils (0.0-0.2) 10^3/uL 0.00 RBC Morphology Normal PT (9.1-11.1) sec 11.7 H INR (0.9-1.1) 1.2 H VBG Lactate (<or=2.0) mmol/L 1.9 Sodium (136-145) mmol/L 133 L Potassium (3.5-5.1) mmol/L 3.4 L Chloride (98-107) mmol/L 96 L Carbon Dioxide (21.0-32.0) mmol/L 30.1 Anion Gap (3-11) mmol/L 6.9 BUN (7-18) mg/dL 10 Creatinine (0.55-1.02) mg/dL 0.8 Est GFR (CKD-EPI 2020) (mL/min/1.73m2) 97.87 Glucose (74-106) mg/dL 105 Calcium (8.5-10.1) mg/dL 8.8 Total Bilirubin (0.2-1.0) mg/dL 0.71 AST (15-37) U/L 17 ALT (14-59) U/L 22 Alkaline Phosphatase (46-116) U/L 64 Troponin I (<or=51) ng/L 8 Total Protein (6.4-8.2) g/dL 7.1 Albumin (3.4-5.0) g/dL 3.0 L Procalcitonin ng/mL 6.97 Medical Decision Making Quality:SDOH Health Related Social Needs: Health related social needs details none Critical Care Time Critical Care Time Critical Care Time: Yes Total Critical Care Time: 35 Attestation: Upon my evaluation, this patient had a high probability of imminent or life-threatening deterioration due to sepsis and bacteremia, which required my direct attention, intervention, and personal management. I have personally provided 35 minutes of critical care time exclusive of time spent on separately billable procedures. Time includes review of laboratory data, radiology results, discussion with consultants, and monitoring for potential decompensation. Interventions were performed as documented above. Mairlyn Cat MD [facility] All Active Problems (Updated 12/21/24 @ 20:44 by Marilyn Cat MD) Bacteremia (Acute) ADHD (attention deficit hyperactivity disorder) (Chronic) Sepsis (Acute) Right upper lobe pneumonia (Acute) Streptococcal sore throat (Acute) Lactating mother (Acute) care following vaginal delivery (Acute) Depression (Chronic) Anxiety (Chronic) Herniated lumbar intervertebral disc (Acute) L5-S1 Advanced maternal age (AMA) in (Acute) Chronic back pain (Chronic) Medical History 37 weeks gestation of Marijuana smoker Chronic pain Short cervical length during Low lying placenta nos or without hemorrhage, second trimester Surveillance for Depo-Provera contraception Contraception Uses Depo-Provera as primary control method History of delivery Family History Brother Alcohol abuse Mother Substance abuse Alcohol abuse Father Substance abuse Diabetes Stroke Paternal Grandmother Stroke Paternal Aunt No problems noted. Paternal Grandfather Heart disease congestive heart failure Social History Smoking/Tobacco Use Status: Former Tobacco Use Smoking risk assessment performed?: Yes Alcohol Intake: former Drug use: Daily Substance use type: marijuana Details: none Housing: house Current gender identity: female Do you feel safe at home: Yes Do you feel safe in your relationship?: Yes Additional Social history: none Female Reproductive History Menstrual control method: progesterone injection History History 2 Para 2 Hx # Term Pregnancies 1 Multiple births 0 Hx # Pregnancies 1 Ectopic pregnancies 0 AB induced 0 Hx Number of Living Children 2 AB spontaneous 0 Past Pregnancies Del. Date GA/Weeks # Preg Succ Route Wgt Sex Labor Lgth Anesthesia Location Prov Complic 10/19/16 31 Yes vaginal 2041.166 g Male [address] [facility] [place] 12/25/23 37 No Yes vaginal 3444.467 g Female 5hrs 4min regional [facility] Delivery Date: 10/19/16 Last Updated by: Jeanie Siu CNM PPROM at 31 weeks 5 days, autism, Roberto Carlos
--- NOTE | 2024-12-21 19:20 | W.PM.HP.N ---
Date of service: 12/21/24 Time of Service: 19:21 Assessment and Plan Assessment and plan (1) Sepsis: Start date: 12/21/24 Status: Acute Assessment and plan: This is a 34-year-old lady who was seen previously in the ED returning with positive blood cultures growing gram-positive cocci in chains. She was diagnosed with strep pharyngitis on treatment and also right upper lobe infiltrate by previous chest x-ray, all possibly contributing to her early sepsis. She has had fever for 2 days and now test positive for influenza A which could be contributing to her respiratory symptoms. Appears to have some right-sided pleurisy with deep breathing. She will be admitted for IV fluids as needed for blood pressure support and IV antibiotic therapy as well as Tamiflu for her acute influenza A infection. She is not requiring oxygen. She does have problems with chronic pain and this will be addressed with adjustment of her outpatient medical therapy. She is a full code. (2) Right upper lobe pneumonia: Start date: 12/20/24 Status: Acute Assessment and plan: IV Rocephin and Zithromax and follow-up on blood cultures for ID and sensitivities. (3) Influenza A: Start date: 12/21/24 Status: Acute Assessment and plan: Just diagnosed this admission with viral screening which was negative for RSV and COVID. Tamiflu will be initiated with continued supportive care. (4) Streptococcal sore throat: Start date: 12/20/24 Status: Acute Assessment and plan: This should be covered with treatment of her pneumonia. (5) Hypomagnesemia: Start date: 12/21/24 Status: Acute Assessment and plan: Patient will be repleted with IV magnesium and follow-up lab daily. (6) Chronic back pain: Status: Chronic Assessment and plan: Patient had her oxycodone increased to 20 mg, 3 times daily with VPMS checked and consistent with this dosing in the last 30 days. She was not on this amount over this last year with slowly increasing dosing. She is not on benzodiazepines but does take Adderall. Urine drug screen was negative for opiates, cocaine and amphetamines on daily low-dose Adderall but positive for THC. Urine will be sent for oxycodone confirmation and the patient will continue on her outpatient dosing of oxycodone 20 mg 3 times daily. He did receive Dilaudid 0.5 mg IV for pain in the ED and this may need to be repeated if she is not becoming more comfortable with her oxycodone. (7) ADHD (attention deficit hyperactivity disorder): Status: Chronic Assessment and plan: Continue Adderall daily. Urine drug screen was negative for amphetamines which could be because of low dosing. History of Present Illness History of Present Illness Chief Complaint: Return to ED for positive blood cultures. Narrative: This is a 34-year-old female patient who has been ill for about 4 days being seen in the ED the day prior to presentation with right chest discomfort and a productive cough along with sore throat. She was found to have a right upper lobe pneumonia and positive strep pharyngitis being sent home on treatment with Keflex. She also is complaining of loose stools which is recent onset with abdominal cramp just recently. She has been having fever the last couple days and was called back to the ED because of 2 out of 2 positive blood cultures with gram-positive cocci in chains. In the ED she was found to have influenza A as well on screening. She had mild sepsis syndrome and did respond to IV fluids. She did have productive cough with increased sputum and is not a smoker. Chronically she is on oxycodone 20 mg 3 times daily for back pain and also is on Adderall. She is not a smoker of tobacco but does have a positive THC drug screen. In the ED she was not oxygen dependent but had tachycardia with tachypnea without hypotension. Her potassium was slightly low and magnesium was low which will be repleted. Her procalcitonin was positive with a lactate negative. She did not have leukocytosis. The patient was admitted for treatment of her pneumonia with positive blood cultures and now positive fluid. IV Rocephin and Zithromax were initiated in the ED will be continued as well as Tamiflu been initiated for acute influenza with fevers only in the last 2 days. Her pain management will be continued as per her outpatient and respiratory care as needed. We will follow-up on urine drug screens to ensure patient not been self treating at home with her chronic pain and having recent escalation of her oxycodone. She is on Adderall with urine drug screen initially not showing amphetamines, positive for TSH but negative for cocaine and negative for opioids though she did receive Dilaudid in the ED. We will send off a urine screen for oxycodone as well. She may have difficulty with discomfort having decreased tolerance of pain with her chronic pain syndrome. She is a full code. Review of Systems Narrative: 13 point review of systems otherwise unrevealing or stable. PFSH All Active Problems (Updated 12/22/24 @ 00:01 by Bart Cuevas) Influenza A (Acute) Hypomagnesemia (Acute) Bacteremia (Acute) ADHD (attention deficit hyperactivity disorder) (Chronic) Sepsis (Acute) Right upper lobe pneumonia (Acute) Streptococcal sore throat (Acute) Lactating mother (Acute) care following vaginal delivery (Acute) Depression (Chronic) Anxiety (Chronic) Herniated lumbar intervertebral disc (Acute) L5-S1 Advanced maternal age (AMA) in (Acute) Chronic back pain (Chronic) Medical History 37 weeks gestation of Marijuana smoker Chronic pain Short cervical length during Low lying placenta nos or without hemorrhage, second trimester Surveillance for Depo-Provera contraception Contraception Uses Depo-Provera as primary control method History of delivery Family History Brother Alcohol abuse Mother Substance abuse Alcohol abuse Father Substance abuse Diabetes Stroke Paternal Grandmother Stroke Paternal Aunt No problems noted. Paternal Grandfather Heart disease congestive heart failure Social History Smoking/Tobacco Use Status: Former Tobacco Use Smoking risk assessment performed?: Yes Alcohol Intake: former Drug use: Daily Substance use type: marijuana Details: none Housing: house Current gender identity: female Do you feel safe at home: Yes Do you feel safe in your relationship?: Yes Additional Social history: none Female Reproductive History Menstrual control method: progesterone injection History History 2 Para 2 Hx # Term Pregnancies 1 Multiple births 0 Hx # Pregnancies 1 Ectopic pregnancies 0 AB induced 0 Hx Number of Living Children 2 AB spontaneous 0 Past Pregnancies Del. Date GA/Weeks # Preg Succ Route Wgt Sex Labor Lgth Anesthesia Location Prov Complic 10/19/16 31 Yes vaginal 2041.166 g Male 5 hours local [facility] [place] 12/25/23 37 No Yes vaginal 3444.467 g Female 5hrs 4min regional [facility] Delivery Date: 10/19/16 Last Updated by: Jeanie Siu CNM PPROM at 31 weeks 5 days, autism, Roberto Carlos Meds Allergies and Home Medications Allergies Allergy/AdvReac Type Severity Reaction Status Date / Time amoxicillin Allergy Intermediate Skin Rash Verified 12/21/24 16:42 Penicillins Allergy Intermediate rash with Verified 12/21/24 16:42 amoxicillin Home Medications ?Medication ?Instructions ?Recorded ?Confirmed ?Type ibuprofen 600 mg tablet 600 mg PO Q6H PRN PRN #60 tabs 12/26/23 12/21/24 Rx dextroamphetamine-amphetamine 20 20 mg PO DAILY 02/14/24 12/21/24 History mg tablet (Adderall) benzonatate 100 mg capsule 100 mg PO BID-TID PRN cough #10 12/20/24 12/21/24 Rx caps cephalexin 500 mg tablet 500 mg PO BID 10 days #20 tabs 12/20/24 12/21/24 Rx doxycycline hyclate 100 mg tablet 100 mg PO BID 10 days #20 tabs 12/20/24 12/21/24 Rx oxycodone 20 mg tablet 20 mg PO TID 12/21/24 12/21/24 History Exam Narrative Exam Narrative: General: Patient appears in moderate distress from her cough and abdominal discomfort sitting up in bed. She has poor eye contact and pressured speech. She is alert and oriented x 3. She appears very thin and acutely ill. HEENT: Normocephalic, hair unkempt, eyes with pupils equal and reactive to light symmetrically, extraocular movement intact and sclera anicteric. Oropharynx with moist mucosa and poor dentition. Neck: Supple without JVD. Lungs: Decreased aeration of the right hemithorax with fair aeration over the rest of lung rider, no focalizing rales or rhonchi. Decreased inspiratory effort because of guarding right chest discomfort which appears to be pleuritic pain. No expiratory wheeze. Breast: Exam deferred. Heart: Regular rate and rhythm with no murmurs gallops appreciated. Abdomen: Normal contour, soft with diffuse discomfort to deep palpation but no focal guarding or rebound. No palpable hepatosplenomegaly. Bowel sounds positive all quadrants. Genitalia/rectal: Exam deferred. Extremities: Without clubbing, cyanosis or pitting edema. Peripheral pulses intact. Skin: Normal color, warm and dry. Neuro: Cranial nerves II through XII gross intact, no focalized motor deficits. No tremor. Psych: Very anxious and agitated complaining of discomforts. Pressured speech. Depressed mood. No abnormal thought processes. Remote and recent memory appear to be grossly intact. Results Imaging Imaging Studies: EXAM: XR CHEST 2V PA LATERAL CLINICAL HISTORY: Cough, SOB TECHNIQUE: 2D digital imaging was performed. Two views. COMPARISON: CR,XR XR CHEST 2V PA LATERAL from 11/28/2022 FINDINGS: HEART: Normal size. Aorta: Not dilated. PULMONARY VASCULATURE: Normal. MEDIASTINUM: Unremarkable. LUNGS: There is a large area of consolidation in the posterior right upper lobe abutting the fissure. Other fainter of opacities are noted in the left upper and lower lobes. PLEURAL SPACE: No pleural effusion or pneumothorax. BONE:Unremarkable for age. SOFT TISSUES: Unremarkable. IMPRESSION: Right upper lobe pneumonia with consolidation. Patchy infiltrates in the left upper and lower lobes. Labs 12/21/24 17:35 12/21/24 17:35 Labs: Laboratory Results - last 24 hr 12/21/24 17:35 WBC 8.56 RBC 4.41 Hgb 13.3 Hct 38.5 MCV 87 MCH 30.2 MCHC 34.5 RDW 12.2 Plt Count 150 MPV 9.8 Immature Gran % 0.0 Neutrophils % 82.0 Band Neutrophils % 14 Lymphocytes % 3.0 Atypical Lymphs % 0 Monocytes % 1.0 Eosinophils % 0.0 Basophils % 0.0 Nucleated RBC % 0.0 Absolute Neutrophils 8.22 H Absolute Lymphocytes 0.26 L Absolute Monocytes 0.09 L Absolute Eosinophils 0.00 Absolute Basophils 0.00 RBC Morphology Normal PT 11.7 H INR 1.2 H VBG Lactate 1.9 Sodium 133 L Potassium 3.4 L Chloride 96 L Carbon Dioxide 30.1 Anion Gap 6.9 BUN 10 Creatinine 0.8 Est GFR (CKD-EPI 2020) 97.87 Glucose 105 Calcium 8.8 Total Bilirubin 0.71 AST 17 ALT 22 Alkaline Phosphatase 64 Troponin I 8 Total Protein 7.1 Albumin 3.0 L Procalcitonin 6.97 Last Vital Signs Temp 37.1 C 12/21/24 16:41 Pulse 109 H 12/21/24 16:41 Resp 18 12/21/24 16:41 BP 102/45 L 12/21/24 16:41 Pulse Ox 97 12/21/24 16:41 Time Spent Time spent with Patient: >75 minutes Time was spent: preparing to see the patient(eg.review tests), obtaining and/or reviewing separately otained hiistory, ordering medications,tests, procedures, indepentently interpreting results, counseling the patient and care coordination
[2024-12-21 20:17] LABS: *AMPHETAMINES SCREEN URINE Negative (Negative); *BARBITURATES SCREEN URINE Negative (Negative); *BENZODIAZEPINES SCREEN URINE Negative (Negative); Cannabinoids THC Positive (Negative); Cocaine Screen,Urine Negative (Negative); METHADONE URINE SCREEN Negative (Negative); OPIATES URINE SCREEN Negative (Negative)
[2024-12-21 20:19] LABS: Tricyclic Antidepressants Negative (Negative)
[2024-12-21 20:38] LABS: Troponin I < 4 ng/L (<or=51)
[2024-12-21 20:51] LABS: Bilirubin Negative (Negative); Blood Negative (Negative); Clarity Clear (Clear); Glucose Negative (Negative); Ketones Negative (Negative); Leukocyte Esterase Negative (Negative); Nitrite Negative (Negative); Specific Gravity <= 1.005 (1.005-1.025); Urobilinogen 0.2 mg/dL (Up to 0.2)
--- NOTE | 2024-12-21 21:12 | W.PC.ACHO ---
Registration Status: Primary Language: Preferred Language: ED Information & Data Chief Complaint GenMedical 12/21/24 19:06 Triage Note Pt here yesterday, blood 12/21/24 16:37 cultures came back positive so patient was notified to come back. She reports that she feels terrible, did start the ABX that were prescribed to her yesterday Medical / Surgical History (Last Reviewed 12/21/24 @ 19:21 by Bart Cuevas) 37 weeks gestation of Marijuana smoker Chronic pain Short cervical length during Low lying placenta nos or without hemorrhage, second trimester Surveillance for Depo-Provera contraception Contraception Uses Depo-Provera as primary control method History of delivery Most Recent Vital Signs Temperature 37.1 C 12/21/24 16:41 Temperature Source Tympanic 12/21/24 16:41 Pulse 109 H 12/21/24 16:41 Respiratory Rate 18 12/21/24 16:41 Blood Pressure 102/45 L 12/21/24 16:41 Blood Pressure Position Sitting 12/21/24 16:41 Pulse Oximetry 97 12/21/24 16:41 Oxygen Delivery Method Room Air 12/21/24 16:41 Oxygen Flow Rate 0 12/21/24 16:41 Pain Level 10 12/21/24 18:44 Allergies amoxicillin Allergy (Intermediate, Verified 12/21/24 16:42) Skin Rash Penicillins Allergy (Intermediate, Verified 12/21/24 16:42) rash with amoxicillin Precautions Isolation Standard precaution 12/21/24 16:42 Active Medications Generic Name Dose Route Start Last Admin Trade Name Freq PRN Reason Stop Dose Admin Azithromycin 500 mg/ Sodium 250 mls @ 250 mls/hr 12/21/24 17:15 12/21/24 19:38 Chloride IVPB Infused Q24H [place] Infusion IV IV Catheter Type [Right Saline Lock Antecubital] IV Catheter Type [Left Saline Lock Antecubital] IV Catheter Gauge [Right 18 Antecubital] IV Catheter Gauge [Left 18 Antecubital] Diagnostics 12/21/24 12/21/24 12/21/24 Range/Units 20:12 20:02 19:43 WBC (4.4-10.8) 10^3/uL RBC (3.93-5.22) 10^6/uL Hgb (11.2-15.7) g/dL Hct (36.0-46.0) % MCV (80-95) fL MCH (27.0-33.0) pg MCHC (32.0-36.0) % RDW (11.7-14.6) % Plt Count (130-400) 10^3/uL MPV (8.0-11.0) fL Immature Gran % % Neutrophils % % Band Neutrophils % % Lymphocytes % % Atypical Lymphs % % Monocytes % % Eosinophils % % Basophils % % Nucleated RBC % (0.0-0.3) % Absolute Neutrophils (1.2-6.7) 10^3/uL Absolute Lymphocytes (1.2-3.4) 10^3/uL Absolute Monocytes (0.1-0.8) 10^3/uL Absolute Eosinophils (0.0-0.7) 10^3/uL Absolute Basophils (0.0-0.2) 10^3/uL RBC Morphology PT (9.1-11.1) sec INR (0.9-1.1) VBG Lactate (<or=2.0) mmol/L Sodium (136-145) mmol/L Potassium (3.5-5.1) mmol/L Chloride (98-107) mmol/L Carbon Dioxide (21.0-32.0) mmol/L Anion Gap (3-11) mmol/L BUN (7-18) mg/dL Creatinine (0.55-1.02) mg/dL Est GFR (CKD-EPI 2020) (mL/min/1.73m2) Glucose (74-106) mg/dL Calcium (8.5-10.1) mg/dL Total Bilirubin (0.2-1.0) mg/dL AST (15-37) U/L ALT (14-59) U/L Alkaline Phosphatase (46-116) U/L Troponin I Pending (<or=51) ng/L Total Protein (6.4-8.2) g/dL Albumin (3.4-5.0) g/dL Procalcitonin ng/mL Urine Color Pending Urine Clarity Pending Urine pH Pending Ur Specific [place] Pending Urine Protein Pending Urine Ketones Pending Urine Blood Pending Urine Nitrite Pending Urine Bilirubin Pending Urine Urobilinogen Pending Ur Leukocyte Esterase Pending Urine Glucose Pending Urine Opiates Screen (Negative) Urine Methadone Screen (Negative) Ur Barbiturates Screen (Negative) Ur Tricyclics Screen (Negative) Ur Amphetamines Screen (Negative) U Benzodiazepines Scrn (Negative) Urine Cocaine Screen (Negative) Ur THC Screen (Negative) COVID-19 Source Pending SARS-CoV-2 (PCR) Pending Influenza Type A (PCR) Pending Influenza Type B (PCR) Pending RSV (PCR) Pending 12/21/24 12/21/24 12/20/24 Range/Units 18:05 17:35 21:05 WBC 8.56 (4.4-10.8) 10^3/uL RBC 4.41 (3.93-5.22) 10^6/uL Hgb 13.3 (11.2-15.7) g/dL Hct 38.5 (36.0-46.0) % MCV 87 (80-95) fL MCH 30.2 (27.0-33.0) pg MCHC 34.5 (32.0-36.0) % RDW 12.2 (11.7-14.6) % Plt Count 150 (130-400) 10^3/uL MPV 9.8 (8.0-11.0) fL Immature Gran % 0.0 % Neutrophils % 82.0 % Band Neutrophils % 14 % Lymphocytes % 3.0 % Atypical Lymphs % 0 % Monocytes % 1.0 % Eosinophils % 0.0 % Basophils % 0.0 % Nucleated RBC % 0.0 (0.0-0.3) % Absolute Neutrophils 8.22 H (1.2-6.7) 10^3/uL Absolute Lymphocytes 0.26 L (1.2-3.4) 10^3/uL Absolute Monocytes 0.09 L (0.1-0.8) 10^3/uL Absolute Eosinophils 0.00 (0.0-0.7) 10^3/uL Absolute Basophils 0.00 (0.0-0.2) 10^3/uL RBC Morphology Normal PT 11.7 H (9.1-11.1) sec INR 1.2 H (0.9-1.1) VBG Lactate 1.9 (<or=2.0) mmol/L Sodium 133 L (136-145) mmol/L Potassium 3.4 L (3.5-5.1) mmol/L Chloride 96 L (98-107) mmol/L Carbon Dioxide 30.1 (21.0-32.0) mmol/L Anion Gap 6.9 (3-11) mmol/L BUN 10 (7-18) mg/dL Creatinine 0.8 (0.55-1.02) mg/dL Est GFR (CKD-EPI 2020) 97.87 (mL/min/1.73m2) Glucose 105 (74-106) mg/dL Calcium 8.8 (8.5-10.1) mg/dL Total Bilirubin 0.71 (0.2-1.0) mg/dL AST 17 (15-37) U/L ALT 22 (14-59) U/L Alkaline Phosphatase 64 (46-116) U/L Troponin I Cancelled 8 (<or=51) ng/L Total Protein 7.1 (6.4-8.2) g/dL Albumin 3.0 L (3.4-5.0) g/dL Procalcitonin 6.97 ng/mL Urine Color Urine Clarity Urine pH Ur Specific [place] Urine Protein Urine Ketones Urine Blood Urine Nitrite Urine Bilirubin Urine Urobilinogen Ur Leukocyte Esterase Urine Glucose Urine Opiates Screen Negative (Negative) Urine Methadone Screen Negative (Negative) Ur Barbiturates Screen Negative (Negative) Ur Tricyclics Screen Negative (Negative) Ur Amphetamines Screen Negative (Negative) U Benzodiazepines Scrn Negative (Negative) Urine Cocaine Screen Negative (Negative) Ur THC Screen Positive A (Negative) COVID-19 Source SARS-CoV-2 (PCR) Influenza Type A (PCR) Influenza Type B (PCR) RSV (PCR) 12/21/24 18:00 Blood Culture - Pending Blood 12/21/24 17:35 Blood Culture - Pending Blood Intake and Output - 24 Hour Total 12/21/24 16:19 thru 12/21/24 19:38 Intake Total 800 Balance 800 Weight 68.039 kg Intake: IV 800 Problems (Last Reviewed 12/21/24 @ 19:21 by Bart Cuevas) ADHD (attention deficit hyperactivity disorder) (Chronic) Sepsis (Acute) Right upper lobe pneumonia (Acute) Streptococcal sore throat (Acute) Chronic back pain (Chronic) v v v v v v v v v Sending and/or Receiving Nurses: Please use comment section below to note any information pertinent to the patient hand-off not included above. Information / Comments: Pt returned to ED after +BCs gram + cocci. RUL PNA with consolidation,=. Increased pain in R chest with breathing. Received 1000mg tylenol and 1L LR. Pain still elevated, stat does of Dilaudid 0.5mg given. A&Ox4, lungs course, heart reg, active BS; diarrhea, UA and FluVId done. 18 G in bilat ACs. Ind in room. Report received from: Fatoumata Estrada RN
[2024-12-21 21:29] LABS: COVID-19 PCR Negative (Negative); Influenza B PCR Negative (Negative); RSV PCR Negative (Negative)
[2024-12-21 21:45] LABS: Source Nasopharynx
[2024-12-21 21:47] LABS: Influenza A PCR Positive (Negative)
[2024-12-21] MEDS: oxyCODONE 10 MG TAB PO (21:48)
[2024-12-21] MEDS: Enoxaparin 40 MG/0.4 ML SYR SC (21:48)
[2024-12-21] MEDS: POTASSIUM CHLORIDE/0.9% NACL 1,000 ML 125 MEQ IV (21:48)
[2024-12-21] MEDS: Normal Saline Flush 10 ML SYR IVP (21:49)
[2024-12-21 22:07] LABS: Magnesium 1.4 mg/dL (1.8-2.4)
[2024-12-21] MEDS: Benzonatate 100 MG CAP PO (23:43)
--- NOTE | 2024-12-22 | DI.CT_ITS ---
Exam(s) CT CHEST PE ABD PELVIS W EXAM: CT CHEST PE ABD PELVIS W CLINICAL HISTORY: Tachypnea with right pleuritic chest pain, Acute right lower quad abd pain. TECHNIQUE: Imaging Protocol: Axial computed tomography images with coronal and sagittal reformatted images were created and reviewed. Computer aided detection (CAD) was utilized. CONTRAST MATERIAL: Intravenous: Omnipaque 350 Contrast volume:100 ml Oral: no COMPARISON: CR,XR XR CHEST 2V PA LATERAL from 12/20/2024 FINDINGS: CHEST: Tracheobronchial tree: Patent. Pulmonary parenchyma: There is a large area of consolidation in the right upper lobe. Smaller infilt rates are noted at the right lower, left upper and right left lower lobes. Pleura: Small right pleural effusion. No pneumothorax. Mediastinum: Within normal limits. Aorta: Thoracic portion non-dilated. Pulmonary arteries: No visible emboli. Heart: No pericardial effusion. Bones: Unremarkable for age. No lytic or blastic lesions.No compression fractures. Soft tissues: Unremarkable. ABDOMEN and PELVIS: The evaluation is limited due to lack of oral contrast and lack of intra-abdominal fat. Liver: Normal density. No measurable mass. Gallbladder and biliary tract: No evidence of stones or wall thickening. No biliary dilatation. Pancreas: Normal density, no abnormal calcifications or inflammatory process. Spleen: Normal. Kidneys: Normal size, contour and axis. No radiodense stones. No obstructive uropathy. No suspicious masses seen. Adrenal glands: No masses seen. Aorta: Abdominal portion non-dilated. Lymph nodes: Within normal limits. Soft tissues: There is air distal to the left of the umbilicus in the subcutaneous fat, likely relate d to an injection. Bladder: Unremarkable. Bowel: No obstruction or bowel wall thickening. Mild nonspecific gaseous distension of small and larg e bowel. The appendix is normal. Peritoneal cavity: No ascites. No focal collection. No mesenteric inflammatory response. No free ai r. Bones: Chronic appearing deformity of the anterior endplate of L5. Levo scoliosis versus patient pos itioning. Reproductive organs: Within normal limits. IMPRESSION: Large consolidated pneumonia in the right upper lobe. Other scattered infiltrates noted in left uppe r and lower lobes as well as right lower lobe. Small right pleural effusion. No evidence of pulmona ry emboli. No acute abnormalities identified in the abdomen or pelvis. RADIATION DOSE DELIVERED: 300.98mGy.cm Total DLP 300.98mGy.cm Total DLP DATA REPOSITORY: All CT scans at this facility are submitted to the National Radiology Data Registry (NRDR) Dose Index Registry (DIR) with the [employer] (ACR). RADIATION OPTIMIZATION: All CT scans at this facility use at least one of these dose optimization te chniques: automated exposure control; mA and/or kV adjustment per patient size (includes targeted exa ms where dose is matched to clinical indication); or iterative reconstruction.
[2024-12-22] MEDS: Acetaminophen 325 MG TAB PO ×2 (00:10→05:14)
[2024-12-22] MEDS: Melatonin 3 MG TAB 9 MG PO (00:10)
[2024-12-22] MEDS: MAGNESIUM SULFATE 2 GM/50 ML BAG IV_INF (00:10)
[2024-12-22] MEDS: HYDROmorphone 2 MG/ML SYR 0.5 MG IVP ×2 (01:54→14:40)
[2024-12-22 01:55] LABS: C Diff PCR Negative (Negative)
[2024-12-22] MEDS: Normal Saline Flush 10 ML SYR IVP ×6 (01:55→20:24)
[2024-12-22 03:03] VITALS: BP 110/58; PULSE 84; RESP 20; TEMP 36.8; O2SAT 99
[2024-12-22] MEDS: oxyCODONE 10 MG TAB 20 MG PO ×3 (03:23→18:14)
[2024-12-22] MEDS: Benzonatate 100 MG CAP PO ×3 (05:14→18:13)
[2024-12-22 05:23] VITALS: BP 106/63; PULSE 75; RESP 20; TEMP 36.8; O2SAT 99
[2024-12-22 05:38] LABS: HCG Qual (Serum) Negative
[2024-12-22 07:46] LABS: HCT 31.2 % (36.0-46.0); HGB 10.9 g/dL (11.2-15.7); MCH 30.4 pg (27.0-33.0); MCHC 34.9 % (32.0-36.0); MCV 87 fL (80-95); MPV 10.7 fL (8.0-11.0); Platelet Count 158 10^3/uL (130-400); RBC 3.59 10^6/uL (3.93-5.22); RDW 12.3 % (11.7-14.6); RDW-SD 39.8 fL; WBC 7.81 10^3/uL (4.4-10.8)
[2024-12-22 07:57] VITALS: BP 109/66; PULSE 78; RESP 19; TEMP 36.7; O2SAT 97
[2024-12-22] MEDS: Oseltamivir 75 MG CAP PO ×2 (08:04→19:55)
[2024-12-22] MEDS: Amphet Asp/Amphet/D-Amphet 10 MG TAB 20 MG PO (08:05)
[2024-12-22 08:06] LABS: ALT 12 U/L (14-59); AST 14 U/L (15-37); Albumin 2.3 g/dL (3.4-5.0); Alkaline Phosphatase 65 U/L (46-116); Anion Gap 5.6 mmol/L (3-11); BUN 8 mg/dL (7-18); Bilirubin, Total 0.33 mg/dL (0.2-1.0); CO2 27.4 mmol/L (21.0-32.0); CREATININE 0.7 mg/dL (0.55-1.02); Calcium 8.1 mg/dL (8.5-10.1); Chloride 98 mmol/L (98-107); Estimated GFR 114.88 (mL/min/1.73m2); Glucose 119 mg/dL (74-106); Magnesium 2.3 mg/dL (1.8-2.4); Sodium 131 mmol/L (136-145); Total Protein 5.9 g/dL (6.4-8.2)
[2024-12-22] MEDS: POTASSIUM CHLORIDE/0.9% NACL 1,000 ML 125 MEQ IV (08:06)
[2024-12-22] MEDS: Omnipaque 350 MG/ML 100 ML BTL IJ (08:42)
[2024-12-22] MEDS: Normal Saline - Diluent 50 ML VIAL IJ (08:43)
--- NOTE | 2024-12-22 09:41 | W.PM.PROGNOT ---
Date of Service Date of service: 12/22/24 Time of Service: 09:42 Assessment and Plan Assessment and plan (1) Sepsis: Start date: 12/21/24 Status: Acute Assessment and plan: This is a 34-year-old lady who was seen previously in the ED returning with positive blood cultures growing gram-positive cocci in chains. With ongoing strep pharyngitis Right upper lobe infiltrate by previous chest x-ray, All are probable source in sepsis. Positive for influenza A with respiratory symptoms and right-sided pleurisy with deep breathing. on Ceftriaxone and Azithromycin Continue Oseltamivir Blood culture drawn and pending IS and vibrapep Mucinex H&H dropped to 10.9 and 31.2 from 13 and 38.5 might be dilutional CBC in AM (2) Right upper lobe pneumonia: Start date: 12/20/24 Status: Acute Assessment and plan: As above (3) Influenza A: Start date: 12/21/24 Status: Acute Assessment and plan: as above (4) Streptococcal sore throat: Start date: 12/20/24 Status: Acute Assessment and plan: Positive as per rapid strep On ceftriaxone (5) Hypomagnesemia: Start date: 12/21/24 Status: Acute Assessment and plan: Patient will be repleted with IV magnesium and follow-up lab daily. Repleted and normal this morning we will recheck on in the event of persistent hypokalemia (6) Chronic back pain: Status: Chronic Assessment and plan: Patient had her oxycodone increased to 20 mg, 3 times daily with VPMS checked and consistent with this dosing in the last 30 days. Will continue oxycodone as per on schedule Will schedule APAP Will schedule ketorolac IV short-term and see response Will initiate hydromorphone low-dose every 6 hours as needed if above fail to be effective for pain control Patient mentioned using THC at home stating that she has a card.We might have to consider managing any anxiety due to abrupt cessation (7) ADHD (attention deficit hyperactivity disorder): Status: Chronic Assessment and plan: Continue Adderall home dosse Urine drug screen was negative for amphetamines which could be because of low dosing. (8) Hypokalemia: Status: Acute Assessment and plan: Basal IVF with potassium initiated on admission for potassium at 3.3 now potassium at 3.0 We will initiate more aggressive replacement Recheck BMP in this afternoon- resolved Cr remains at 1.1 (9) On deep vein thrombosis (DVT) prophylaxis: Status: Acute Assessment and plan: On low molecular weight heparin subcutaneous Discussed with Dr. Harper Subjective Subjective Patient reports: still having pain (whole back, eye sockets, headache, abd), tolerating liquids well, tolerating a regular diet, voiding w/o difficulty, bowel movement, diarrhea and afebrile; denies blood in stool, nausea, vomiting or shortness of breath Exam Narrative Exam Narrative: Constitutional The patient tearful, unfocussed and asking for pain Rx - responded well to reorientation, c/o ongoing MARQUEZ HENMT: Facial structures with normal appearance Eyes: Well aligned, intact ROM but c/o of eye socket pain Neck: Normal ROM, no meningeal signs Neuro:alert and oriented to self, person, place time and situation. No neurological focal deficit, PERRLA Chest:Chest is symmetrical and normal appearance Resp: clear lung bilaterally- decreased bases Cardio: regular rhythm, S1, S2, no murmur positive pulses to all ext. GI: Abdomen is not distended, soft and non tender, bowel sounds are present : Negative Costovertebral angle tenderness Back/spine/Pelvis: No focal back tenderness on palpation, normal alignment Integumentary: No skin lesions or rash Extremities: strength 5/5 to bilateral lower and upper extremities Psych: RASS 1,restless, anxious affect. Objective Last Vital Signs Temp 36.7 C 12/22/24 07:57 Pulse 78 12/22/24 07:57 Resp 19 12/22/24 07:57 BP 109/66 12/22/24 07:57 Pulse Ox 97 12/22/24 07:57 Laboratory Results - last 24 hr 12/20/24 12/21/24 12/21/24 21:05 17:35 18:05 WBC 8.56 RBC 4.41 Hgb 13.3 Hct 38.5 MCV 87 MCH 30.2 MCHC 34.5 RDW 12.2 Plt Count 150 MPV 9.8 Immature Gran % 0.0 Neutrophils % 82.0 Band Neutrophils % 14 Lymphocytes % 3.0 Atypical Lymphs % 0 Monocytes % 1.0 Eosinophils % 0.0 Basophils % 0.0 Nucleated RBC % 0.0 Absolute Neutrophils 8.22 H Absolute Lymphocytes 0.26 L Absolute Monocytes 0.09 L Absolute Eosinophils 0.00 Absolute Basophils 0.00 RBC Morphology Normal PT 11.7 H INR 1.2 H VBG Lactate 1.9 Sodium 133 L Potassium 3.4 L Chloride 96 L Carbon Dioxide 30.1 Anion Gap 6.9 BUN 10 Creatinine 0.8 Est GFR (CKD-EPI 2020) 97.87 Glucose 105 Calcium 8.8 Magnesium Total Bilirubin 0.71 AST 17 ALT 22 Alkaline Phosphatase 64 Troponin I 8 Cancelled Total Protein 7.1 Albumin 3.0 L Procalcitonin 6.97 Serum HCG, Qual Negative Urine Color Urine Clarity Urine pH Ur Specific [place] Urine Protein Urine Ketones Urine Blood Urine Nitrite Urine Bilirubin Urine Urobilinogen Ur Leukocyte Esterase Urine Glucose Stl C.difficile Tox PCR Urine Opiates Screen Negative Urine Methadone Screen Negative Ur Barbiturates Screen Negative Ur Tricyclics Screen Negative Ur Amphetamines Screen Negative U Benzodiazepines Scrn Negative Urine Cocaine Screen Negative Ur THC Screen Positive A COVID-19 Source SARS-CoV-2 (PCR) Influenza Type A (PCR) Influenza Type B (PCR) RSV (PCR) 12/21/24 12/21/24 12/22/24 20:12 20:45 00:19 WBC RBC Hgb Hct MCV MCH MCHC RDW Plt Count MPV Immature Gran % Neutrophils % Band Neutrophils % Lymphocytes % Atypical Lymphs % Monocytes % Eosinophils % Basophils % Nucleated RBC % Absolute Neutrophils Absolute Lymphocytes Absolute Monocytes Absolute Eosinophils Absolute Basophils RBC Morphology PT INR VBG Lactate Sodium Potassium Chloride Carbon Dioxide Anion Gap BUN Creatinine Est GFR (CKD-EPI 2020) Glucose Calcium Magnesium 1.4 L Total Bilirubin AST ALT Alkaline Phosphatase Troponin I < 4 Total Protein Albumin Procalcitonin Serum HCG, Qual Urine Color Yellow Urine Clarity Clear Urine pH 6.0 Ur Specific [place] <= 1.005 Urine Protein Negative Urine Ketones Negative Urine Blood Negative Urine Nitrite Negative Urine Bilirubin Negative Urine Urobilinogen 0.2 Ur Leukocyte Esterase Negative Urine Glucose Negative Stl C.difficile Tox PCR Negative Urine Opiates Screen Urine Methadone Screen Ur Barbiturates Screen Ur Tricyclics Screen Ur Amphetamines Screen U Benzodiazepines Scrn Urine Cocaine Screen Ur THC Screen COVID-19 Source Nasopharynx SARS-CoV-2 (PCR) Negative Influenza Type A (PCR) Positive A Influenza Type B (PCR) Negative RSV (PCR) Negative 12/22/24 06:43 WBC 7.81 RBC 3.59 L Hgb 10.9 L D Hct 31.2 L MCV 87 MCH 30.4 MCHC 34.9 RDW 12.3 Plt Count 158 MPV 10.7 Immature Gran % Neutrophils % Band Neutrophils % Lymphocytes % Atypical Lymphs % Monocytes % Eosinophils % Basophils % Nucleated RBC % Absolute Neutrophils Absolute Lymphocytes Absolute Monocytes Absolute Eosinophils Absolute Basophils RBC Morphology PT INR VBG Lactate Sodium 131 L Potassium 3.0 L Chloride 98 Carbon Dioxide 27.4 Anion Gap 5.6 BUN 8 Creatinine 0.7 Est GFR (CKD-EPI 2020) 114.88 Glucose 119 H Calcium 8.1 L Magnesium 2.3 Total Bilirubin 0.33 AST 14 L ALT 12 L Alkaline Phosphatase 65 Troponin I Total Protein 5.9 L Albumin 2.3 L Procalcitonin Serum HCG, Qual Urine Color Urine Clarity Urine pH Ur Specific [place] Urine Protein Urine Ketones Urine Blood Urine Nitrite Urine Bilirubin Urine Urobilinogen Ur Leukocyte Esterase Urine Glucose Stl C.difficile Tox PCR Urine Opiates Screen Urine Methadone Screen Ur Barbiturates Screen Ur Tricyclics Screen Ur Amphetamines Screen U Benzodiazepines Scrn Urine Cocaine Screen Ur THC Screen COVID-19 Source SARS-CoV-2 (PCR) Influenza Type A (PCR) Influenza Type B (PCR) RSV (PCR) Time Spent with Patient Time Spent with Patient: >50 minutes Time was spent: preparing to see the patient(eg.review tests), obtaining and/or reviewing separately otained hiistory, ordering medications,tests, procedures, referring, communicating with other health behavioral health care coordinator, indepentently interpreting results, counseling the patient and care coordination
[2024-12-22] MEDS: cefTRIAXone 1 GM/50 ML BAG IVPB (10:30)
[2024-12-22] MEDS: Potassium Chloride 20 MEQ TABCR 40 MEQ PO (11:41)
[2024-12-22] MEDS: POTASSIUM CHLORIDE 20 MEQ/100 ML BAG 50 MEQ IV_INF ×2 (11:42→14:15)
[2024-12-22] MEDS: Escitalopram 20 MG TAB PO (12:11)
[2024-12-22] MEDS: Baclofen 10 MG TAB PO ×2 (12:11→20:22)
[2024-12-22] MEDS: Acetaminophen 500 MG TAB 1000 MG PO ×2 (13:53→19:56)
[2024-12-22] MEDS: Ketorolac 15 MG/ML VIAL IVP ×2 (13:53→19:57)
[2024-12-22] MEDS: guaiFENesin 600 MG TABCR PO ×2 (14:08→19:55)
--- NOTE | 2024-12-22 15:15 | RT.EKG_ITS ---
APPROVED REPORT Exam: Resting ECG Reason for Exam: chest pain Patient Location: I HR:79 bpm ECG Measurements Heart Rate 79 AXIS FL 139 P 62 QRSd 88 QRS 47 QT 354 T 54 QTc 406 Conclusion Sinus rhythm...normal P axis, V-rate 50- 99
[2024-12-22] MEDS: LORazepam 1 MG TAB PO (15:32)
[2024-12-22 15:43] VITALS: BP 106/89; PULSE 88; RESP 22; TEMP 36.6; O2SAT 99
[2024-12-22] MEDS: HYDROmorphone 2 MG/ML SYR 1 MG IVP (16:13)
--- NOTE | 2024-12-22 16:35 | CHAPLAIN ---
Raven was in bed, looking uncomfortable, when I visited. I explained my role and offered support. Raven asked me to say prayers for her later, so I will do that. I will visit again another time.
[2024-12-22 16:38] LABS: Anion Gap 6.5 mmol/L (3-11); BUN 7 mg/dL (7-18); CO2 26.5 mmol/L (21.0-32.0); CREATININE 0.7 mg/dL (0.55-1.02); Calcium 8.1 mg/dL (8.5-10.1); Chloride 98 mmol/L (98-107); Estimated GFR 114.88 (mL/min/1.73m2); Glucose 88 mg/dL (74-106); Potassium 3.6 mmol/L (3.5-5.1); Sodium 131 mmol/L (136-145)
--- NOTE | 2024-12-22 16:44 | NUR.NOTE ---
Nursing Note: Spoke with community development manager, sharee mcclellan, about pt condition. Updates included IV abx, pain management, anxiety, current pt condition (sleeping).
[2024-12-22 16:46] LABS: Troponin I < 4 ng/L (<or=51)
--- NOTE | 2024-12-22 17:30 | PDOC.CMIN ---
Date of service: 12/22/24 Time of Service: 12:00 Care Management Initial Assmt Initial Assessment Reason for Hospitalization: sepsis, RUL pneumonia, strep throat, flu Functional Status/Living Situation Patient Presentation: Raven was admitted through the ER yesterday with s/o severe bodyaches due to pneumonia, flu and strep throat. She had been seen in the ER just the day before. She was sent home on oral antibiotics. Blood cultures from that ER visit were positive for strep pyogenes. When CM met with Raven today, she was holding her emesis bag, and looked miserable. CM introduced self, and her role. Raven was not interested in talking today, and CM stated she would check in again tomorrow. Town of Residence: [facility] Resides with: Other (S.O. , Sujey Ledbetter, and their 2 kids.) Significant Other/Family: Local (father, Ed) Natural Supports: family Instrumental Activities of Daily Living (ADLs): Independent Medications Medication Management: No Issues/Barriers identified Advance Directives Advance Directives: Do you have an Advance Directive: N 02/11/24 08:33 AD On File at [facility]: N 02/11/24 08:33 Date Asked 12/21/24 12/21/24 16:22 AD Date Reviewed COLST On File at [facility] COLST Date Scanned Code Status Resuscitation Status Full Code Insurance Coverage/Financial Issues Insurance: Medicaid Care Team Visit Care Team Role Provider Type Unknown Unknown Primary Care Provider STAFF PHYSICIAN Marilyn Cat MD Emergency Provider [facility] STAFF PHYSICIAN Bart Cuevas Admit Provider NON-[facility] STAFF PHYSICIAN Attending Provider Discharge Potential Discharge Needs: PCP F/U Appt (Raven's PCP is unknown at this time. will ask her tomorrow if she has a PCP, if not, will assign her to the T-doc.) Anticipated Barriers to Discharge: None Identified Patient/Family Education Needs: Review discharge instructions, discuss Ask Me Three Transportation: Private vehicle Plan: Anticipate that Raven will be discharged home with no new services once she is medically stable. She will f/u with her PCP and continue per her plan of care. Raven will transport home in a private vehicle. CM will continue to follow and update the plan as needed. Social Determinants of Health Screening Will the Patient Participate in the Screening?: Unable to obtain PFSH All Active Problems (Updated 12/22/24 @ 09:53 by Antonella Siddiqui APRN) On deep vein thrombosis (DVT) prophylaxis (Acute) Hypokalemia (Acute) Influenza A (Acute) Hypomagnesemia (Acute) Bacteremia (Acute) ADHD (attention deficit hyperactivity disorder) (Chronic) Sepsis (Acute) Right upper lobe pneumonia (Acute) Streptococcal sore throat (Acute) Lactating mother (Acute) care following vaginal delivery (Acute) Depression (Chronic) Anxiety (Chronic) Herniated lumbar intervertebral disc (Acute) L5-S1 Advanced maternal age (AMA) in (Acute) Chronic back pain (Chronic) Medical History 37 weeks gestation of Marijuana smoker Chronic pain Short cervical length during Low lying placenta nos or without hemorrhage, second trimester Surveillance for Depo-Provera contraception Contraception Uses Depo-Provera as primary control method History of delivery Family History Brother Alcohol abuse Mother Substance abuse Alcohol abuse Father Substance abuse Diabetes Stroke Paternal Grandmother Stroke Paternal Aunt No problems noted. Paternal Grandfather Heart disease congestive heart failure Social History Smoking/Tobacco Use Status: Former Tobacco Use Smoking risk assessment performed?: Yes Alcohol Intake: former Drug use: Daily Substance use type: marijuana Details: none Housing: house Current gender identity: female Do you feel safe at home: Yes Do you feel safe in your relationship?: Yes Additional Social history: none Female Reproductive History Menstrual control method: progesterone injection History History 2 Para 2 Hx # Term Pregnancies 1 Multiple births 0 Hx # Pregnancies 1 Ectopic pregnancies 0 AB induced 0 Hx Number of Living Children 2 AB spontaneous 0 Past Pregnancies Del. Date GA/Weeks # Preg Succ Route Wgt Sex Labor Lgth Anesthesia Location Prov Complic 10/19/16 31 Yes vaginal 2041.166 g Male 5 hours local [facility] 12/25/23 37 No Yes vaginal 3444.467 g Female 5hrs 4min regional [facility] Delivery Date: 10/19/16 Last Updated by: Jeanie Siu CNM PPROM at 31 weeks 5 days, autism, Roberto Carlos Readmission Within the Past 30 Days Yes or No: No
[2024-12-22] MEDS: AZITHROMYCIN 500 MG in Normal Saline 250 ML 250 MG IVPB (18:03)
[2024-12-22 19:16] VITALS: BP 103/65; PULSE 88; RESP 17; TEMP 36.6; O2SAT 94
[2024-12-22] MEDS: Melatonin 3 MG TAB PO (19:57)
[2024-12-22] MEDS: Enoxaparin 40 MG/0.4 ML SYR SC (20:23)
[2024-12-22 23:33] VITALS: BP 102/58; PULSE 62; RESP 18; TEMP 36.2; O2SAT 96
[2024-12-23] VITALS (8 sets, daily range): BP systolic 105–118; BP diastolic 69–79; PULSE 67–90; RESP 16–30; TEMP 36.3–37.1; O2SAT 96–100
[2024-12-23] MEDS: Ketorolac 15 MG/ML VIAL IVP ×3 (01:49→13:58)
[2024-12-23] MEDS: Acetaminophen 500 MG TAB 1000 MG PO ×4 (01:50→19:50)
[2024-12-23] MEDS: Normal Saline Flush 10 ML SYR IVP ×5 (01:50→19:55)
[2024-12-23] MEDS: HYDROmorphone 2 MG/ML SYR 1 MG IVP ×2 (02:14→19:09)
[2024-12-23 06:36] LABS: HCT 34.1 % (36.0-46.0); HGB 11.7 g/dL (11.2-15.7); MCH 30.1 pg (27.0-33.0); MCHC 34.3 % (32.0-36.0); MCV 88 fL (80-95); MPV 9.5 fL (8.0-11.0); Platelet Count 173 10^3/uL (130-400); RBC 3.89 10^6/uL (3.93-5.22); RDW 12.5 % (11.7-14.6); RDW-SD 40.3 fL
[2024-12-23 06:54] LABS: ALT 14 U/L (14-59); AST 9 U/L (15-37); Albumin 2.1 g/dL (3.4-5.0); Alkaline Phosphatase 67 U/L (46-116); Anion Gap 4.3 mmol/L (3-11); BUN 8 mg/dL (7-18); CO2 27.7 mmol/L (21.0-32.0); CREATININE 0.6 mg/dL (0.55-1.02); Calcium 8.3 mg/dL (8.5-10.1); Chloride 102 mmol/L (98-107); Estimated GFR 119.23 (mL/min/1.73m2); Glucose 83 mg/dL (74-106); Potassium 3.5 mmol/L (3.5-5.1); Sodium 134 mmol/L (136-145); Total Protein 5.6 g/dL (6.4-8.2)
[2024-12-23] MEDS: Albuterol/Ipratropium 3 ML UPD VIAL UPD (08:49)
[2024-12-23] MEDS: guaiFENesin 600 MG TABCR PO ×2 (09:40→19:49)
[2024-12-23] MEDS: Escitalopram 20 MG TAB PO (09:40)
[2024-12-23] MEDS: Oseltamivir 75 MG CAP PO ×2 (09:41→19:49)
--- NOTE | 2024-12-23 09:41 | PDOC.CMPRO ---
Date of service: 12/23/24 Time of Service: 09:41 Care Management Progress Note Progress Note Text Progress Note Text: Raevn was sitting up in the bed when CM met with her. She was eating a bowl of grapes. She looked much better than her presentation yesterday, and stated that she is starting to feel better. She was pleasant and easily engaged. Raven stated that her whole house is sick, her partner and their 2 kids. She is both worried about them, but not eager to go home to care for them because she doesn't yet feel up to it. Discharge Potential Discharge Needs: PCP F/U Appt Anticipated Barriers to Discharge: None Identified Patient/Family Education Needs: Review discharge instructions, discuss Ask Me Three Transportation: Private vehicle Plan: Anticipate that Raven will be discharged home with no new services once she is medically stable. She will f/u with her PCP and continue per her plan of care. Raven will transport home in a private vehicle. CM will continue to follow and update the plan as needed. Social Determinants of Health Screening Social Determinants of Health last assessed: 12/23/24 Will the Patient Participate in the Screening?: Yes Do you worry about having a steady place to live?: no Problems where you live: no known problems In the past 12 months, have you had to go without electric, gas, oil or water in your home?: no Have you or anyone in your house had to go without enough food to eat?: no Has lack of transportation kept you from medical appointments or from doing things needed for daily living?: no Has anyone in your life made you feel unsafe or unsupported?: no How hard is it for you to pay for the very basics like food, housing, medical care, and heating? Would you say it is:: Not hard at all Do you want help finding or keeping work or a job?: I do not need or want help If for any reason you need help with day-to-day activities such as bathing, preparing meals, shopping, managing finances, etc., do you get the help you need?: I get all the help I need How often do you feel lonely or isolated from those around you?: Never Do you speak a language other than Kiswahili at home?: No Does the patient want assistance with any of the above?: No
[2024-12-23] MEDS: oxyCODONE 10 MG TAB 20 MG PO ×3 (09:42→19:50)
[2024-12-23] MEDS: LORazepam 1 MG TAB PO (09:43)
[2024-12-23] MEDS: cefTRIAXone 1 GM/50 ML BAG IVPB (09:49)
[2024-12-23] MEDS: Benzonatate 100 MG CAP PO ×2 (13:54→18:26)
--- NOTE | 2024-12-23 16:59 | W.PM.PROGNOT ---
Date of Service Date of service: 12/23/24 Time of Service: 16:59 Assessment and Plan Assessment and plan (1) Sepsis: Status: Acute Assessment and plan: Positive blood cultures growing gram-positive cocci in chains. Positive strep pharyngitis Right upper lobe infiltrate Positive for influenza A with respiratory symptoms and right-sided pleurisy with deep breathing. on Ceftriaxone and Azithromycin Continue Oseltamivir IS and vibrapep Mucinex Monitor labs Blood cultures from 12/21 negative so far (2) Right upper lobe pneumonia: Status: Acute Assessment and plan: As above (3) Influenza A: Status: Acute Assessment and plan: as above (4) Streptococcal sore throat: Status: Acute Assessment and plan: Positive as per rapid strep On ceftriaxone (5) Hypomagnesemia: Status: Acute Assessment and plan: Repleted and normal this morning we will recheck on in the event of persistent hypokalemia (6) Chronic back pain: Status: Chronic Assessment and plan: Patient had her oxycodone increased to 20 mg, 3 times daily with VPMS checked and consistent with this dosing in the last 30 days. continue oxycodone as per on schedule continue schedule APAP continue ketorolac IV short-term and see response continue hydromorphone low-dose every 6 hours as needed if above fail to be effective for pain control Patient mentioned using THC at home stating that she has a card.We might have to consider managing any anxiety due to abrupt cessation (7) ADHD (attention deficit hyperactivity disorder): Status: Chronic Assessment and plan: Continue Adderall home dosse Urine drug screen was negative for amphetamines which could be because of low dosing. (8) Hypokalemia: Status: Acute Assessment and plan: 3.5 today - trend (9) On deep vein thrombosis (DVT) prophylaxis: Status: Acute Assessment and plan: On low molecular weight heparin subcutaneous Discussed with Dr. Harper Subjective Subjective Patient reports: no new complaints, still having pain, tolerating liquids well, tolerating a regular diet, voiding w/o difficulty, bowel movement and afebrile; denies diarrhea or vomiting Interval history since last seen: Patient continues to complain about her right upper back hurting. She asked that the oxycodone she is prescribed prn be scheduled as she takes it scheduled at home. She has been working with respiratory. She reports no improvement. Exam Const General: cooperative, comfortable and no acute distress Chest Chest: normal inspection of the chest Resp Effort & Inspection: able to speak in complete sentences and tachypneic Auscultation: diminished lung sounds and wheezes Cardio Rate: regular rate Rhythm: regular rhythm GI Other: No abdominal tenderness Objective Last Vital Signs Temp 36.9 C 12/23/24 15:28 Pulse 67 12/23/24 15:28 Resp 19 12/23/24 15:28 BP 105/69 12/23/24 15:28 Pulse Ox 96 12/23/24 15:28 Laboratory Results - last 24 hr 12/23/24 06:15 WBC 8.20 RBC 3.89 L Hgb 11.7 Hct 34.1 L MCV 88 MCH 30.1 MCHC 34.3 RDW 12.5 Plt Count 173 MPV 9.5 Sodium 134 L Potassium 3.5 Chloride 102 Carbon Dioxide 27.7 Anion Gap 4.3 BUN 8 Creatinine 0.6 Est GFR (CKD-EPI 2020) 119.23 Glucose 83 Calcium 8.3 L Total Bilirubin 0.30 AST 9 L ALT 14 Alkaline Phosphatase 67 Total Protein 5.6 L Albumin 2.1 L Time Spent with Patient Time Spent with Patient: 25-34 minutes Time was spent: preparing to see the patient(eg.review tests), ordering medications,tests, procedures, referring, communicating with other health college and career counselor, indepentently interpreting results, counseling the patient and care coordination
[2024-12-23] MEDS: Baclofen 10 MG TAB PO ×2 (18:12→20:53)
[2024-12-23] MEDS: AZITHROMYCIN 500 MG in Normal Saline 250 ML 250 MG IVPB (18:27)
[2024-12-23] MEDS: Melatonin 3 MG TAB PO (19:50)
[2024-12-23] MEDS: Mylanta Suspension 30 ML CUP PO (19:51)
[2024-12-23] MEDS: Milk of Magnesia 30 ML CUP PO (19:51)
[2024-12-23] MEDS: Enoxaparin 40 MG/0.4 ML SYR SC (23:09)
[2024-12-24] MEDS: HYDROmorphone 2 MG/ML SYR 1 MG IVP ×2 (01:34→09:08)
[2024-12-24] MEDS: LORazepam 1 MG TAB PO ×2 (01:35→09:07)
[2024-12-24] MEDS: Acetaminophen 500 MG TAB 1000 MG PO ×3 (01:36→14:53)
[2024-12-24 03:21] VITALS: BP 115/65; PULSE 69; RESP 16; TEMP 37; O2SAT 94
[2024-12-24 06:53] LABS: HCT 33.3 % (36.0-46.0); HGB 11.2 g/dL (11.2-15.7); MCH 29.5 pg (27.0-33.0); MCHC 33.6 % (32.0-36.0); MCV 88 fL (80-95); MPV 8.8 fL (8.0-11.0); Platelet Count 228 10^3/uL (130-400); RDW 12.8 % (11.7-14.6); RDW-SD 41.1 fL; WBC 7.47 10^3/uL (4.4-10.8)
[2024-12-24 07:06] LABS: Magnesium 1.8 mg/dL (1.8-2.4)
[2024-12-24 07:08] LABS: ALT 17 U/L (14-59); AST 11 U/L (15-37); Albumin 2.1 g/dL (3.4-5.0); Alkaline Phosphatase 75 U/L (46-116); Anion Gap 4.9 mmol/L (3-11); BUN 6 mg/dL (7-18); Bilirubin, Total 0.31 mg/dL (0.2-1.0); CO2 29.1 mmol/L (21.0-32.0); CREATININE 0.5 mg/dL (0.55-1.02); Calcium 8.1 mg/dL (8.5-10.1); Chloride 105 mmol/L (98-107); Estimated GFR 124.58 (mL/min/1.73m2); Glucose 92 mg/dL (74-106); Potassium 3.4 mmol/L (3.5-5.1); Sodium 139 mmol/L (136-145); Total Protein 5.8 g/dL (6.4-8.2)
[2024-12-24 07:50] LABS: Absolute Monocyte Count 0.97 10^3/uL (0.1-0.8); Absolute Neutrophil Count 4.93 10^3/uL (1.2-6.7); Bands % 2 %; Metamyelocytes % 1
[2024-12-24 07:51] LABS: Diff Comment Manual Differential; RBC Morphology Normal
[2024-12-24 08:23] VITALS: BP 123/73; PULSE 88; RESP 16; TEMP 36.2; O2SAT 100
[2024-12-24] MEDS: oxyCODONE 10 MG TAB 20 MG PO (08:48)
[2024-12-24] MEDS: Oseltamivir 75 MG CAP PO (08:48)
[2024-12-24] MEDS: Baclofen 10 MG TAB PO ×2 (08:48→12:26)
[2024-12-24] MEDS: guaiFENesin 600 MG TABCR PO (08:48)
[2024-12-24] MEDS: Benzonatate 100 MG CAP PO (08:49)
[2024-12-24] MEDS: Escitalopram 20 MG TAB PO (08:49)
[2024-12-24] MEDS: cefTRIAXone 1 GM/50 ML BAG IVPB (08:51)
[2024-12-24] MEDS: Normal Saline Flush 10 ML SYR IVP (08:51)
--- NOTE | 2024-12-24 09:33 | W.PM.PROGNOT ---
Date of Service Date of service: 12/24/24 Time of Service: 09:33 Exam Narrative Exam Narrative: Constitutional The patient tearful, unfocussed and asking for pain Rx - responded well to reorientation, c/o ongoing MARQUEZ HENMT: Facial structures with normal appearance Eyes: Well aligned, intact ROM but c/o of eye socket pain Neck: Normal ROM, no meningeal signs Neuro:alert and oriented to self, person, place time and situation. No neurological focal deficit, PERRLA Chest:Chest is symmetrical and normal appearance Resp: clear lung bilaterally- decreased bases Cardio: regular rhythm, S1, S2, no murmur positive pulses to all ext. GI: Abdomen is not distended, soft and non tender, bowel sounds are present : Negative Costovertebral angle tenderness Back/spine/Pelvis: No focal back tenderness on palpation, normal alignment Integumentary: No skin lesions or rash Extremities: strength 5/5 to bilateral lower and upper extremities Psych: RASS 1,restless, anxious affect. Objective Last Vital Signs Temp 36.2 C L 12/24/24 08:23 Pulse 88 12/24/24 08:23 Resp 16 12/24/24 08:23 BP 123/73 12/24/24 08:23 Pulse Ox 100 12/24/24 08:23 Laboratory Results - last 24 hr 12/24/24 06:10 WBC 7.47 RBC 3.80 L Hgb 11.2 Hct 33.3 L MCV 88 MCH 29.5 MCHC 33.6 RDW 12.8 Plt Count 228 MPV 8.8 Immature Gran % See Differential Neutrophils % 64.0 Band Neutrophils % 2 Lymphocytes % 16.0 Monocytes % 13.0 Eosinophils % 4.0 Basophils % 0.0 Metamyelocytes % 1 Nucleated RBC % 0.0 Absolute Neutrophils 4.93 Absolute Lymphocytes 1.20 Absolute Monocytes 0.97 H Absolute Eosinophils 0.30 Absolute Basophils 0.00 RBC Morphology Normal Sodium 139 Potassium 3.4 L Chloride 105 Carbon Dioxide 29.1 Anion Gap 4.9 BUN 6 L Creatinine 0.5 L Est GFR (CKD-EPI 2020) 124.58 Glucose 92 Calcium 8.1 L Magnesium 1.8 Total Bilirubin 0.31 AST 11 L ALT 17 Alkaline Phosphatase 75 Total Protein 5.8 L Albumin 2.1 L
[2024-12-24 09:51] LABS: Oxycodone Screen, U Presumptive Positive ng/mL (Cutoff: 100)
--- NOTE | 2024-12-24 10:39 | PDOC.CMDIS ---
Date of service: 12/24/24 Time of Service: 10:39 LACE Index Scoring Tool Questions: Length of Stay (in days): 3 Was the patient admitted via the E.D.?: Yes E.D. Visits: 2 Answers: Total Score: 8 Risk of Readmission: Low Risk Care Management Discharge Plan Reason for Hospitalization: Sepsis, Pneumonia Discharge Plan: Discharge home with a plan to follow up with her PCP and plan of care as directed. No new services are ordered prior to discharge. Family will provide transport. Raven is asked to call her Primary Care Practitioner on Thursday to schedule a Hospital Follow up. Patient/Family Education Needs: Review discharge instructions, limitations, medications and plan to follow up with PCP. Discuss ask me three. SDOH Health Related Social Needs: Health related social needs details none
[2024-12-24] MEDS: Azithromycin 250 MG TAB 500 MG PO (12:26)
--- NOTE | 2024-12-24 12:52 | IN_ITS ---
Date of service: 12/24/24 Time of Service: 12:30 PT Notes Visit Reasons: Sepsis, Streptococcus right upper lobe pneumonia,S Inpatient Physical Therapy Evaluation Date: December 24, 2024 Referring Doctor: Antonella Siddiqui PT Orders: PT CONSULT: Safety consult for DC Precautions: Standard Patient Profile/Admitting Diagnosis: Raven is a 34 year old female admitted secondary to sepsis, streptococcus and R upper lobe pneumonia. PMHX: (Updated 12/21/24 @ 20:44 by Marilyn Cat MD) Bacteremia (Acute) ADHD (attention deficit hyperactivity disorder) (Chronic) Sepsis (Acute) Right upper lobe pneumonia (Acute) Streptococcal sore throat (Acute) Lactating mother (Acute) care following vaginal delivery (Acute) Depression (Chronic) Anxiety (Chronic) Herniated lumbar intervertebral disc (Acute) [id number] maternal age (AMA) in (Acute) Chronic back pain (Chronic) Medical History 37 weeks gestation of Marijuana smoker Chronic pain Short cervical length during Low lying placenta nos or without hemorrhage, second trimester Surveillance for Depo-Provera contraception Contraception Uses Depo-Provera as primary control method History of delivery Social History/Home Situation: Lives in a private home with her boyfriend and their 2 children ages 1 and 7. Notes her entire household has been sick. Current Functional Limitations: Decreased activity tolerance secondary to illness Subjective: Raven notes she is so tired and fatigued. Does feel that the pain has improved and has started a more productive cough. Objective: General Observation: Independent in room with all transfers Mental Status: Alert and oriented x 3 Pain: Complains of pain right chest wall especially with coughing Vital Signs: Monitored via nursing ROM: Right Upper Extremity: Demonstrates full right upper extremity range of motion Left Upper Extremity: Demonstrates full left upper extremity range of motion Right Lower Extremity: Demonstrates full right lower extremity range of motion Left Lower Extremity: Demonstrates full left lower extremity range of motion Strength: Right Upper Extremity: Demonstrates good functional right upper extremity strength Left Upper Extremity: Demonstrates good functional left upper extremity strength Right Lower Extremity: Demonstrates good functional right lower extremity strength Left Lower Extremity: Demonstrates good functional left lower extremity strength Sensation: Intact to light touch bilateral lower extremities Bed Mobility/Transfers: Supine to sit independent Sit to supine independent Sit to stand independent Stand to sit independent Bed to bathroom independent Gait: Nonantalgic without assistive device. Ambulating throughout the room independently Balance: Static Sitting: Normal Dynamic Sitting: Normal Static Standing: Normal Dynamic Standing: Good Special Tests: Mobility Limitations Standardized Measure [facility] AM-PAC 6 clicks Basic Mobility Inpatient Short Form: Raw Score: 24 CMS Score: 0% Informed Consent/Education: Patient instructed in purpose of PT consult and plan of care. Assessment: Patient is a 34 year old female referred to physical therapy [facility] with the diagnosis of sepsis, streptococcus and R upper lobe pneumonia. Patient presents with clinical signs and symptoms consistent with diagnosis. Demonstrates good functional UE/LE strength and mobility. Definite decreased activity tolerance due to illness.Patient is independent in her room and does not require further skilled PT services and will be discharged when medically cleared. Patient is assessed as a Low [id number] complexity based on the following: History: As above Examination: As above Presentation: Stable Decision Making: Low Plan of Care/Treatment Plan: Discharge from PT services. DISCHARGE RECOMMENDATIONS: Home with no services once medically cleared TREATMENT CODE/TIME: 46060, IE, 25 minutes 12:30-12:55 pm [place] [facility]. Disclaimer: This note was created using [employer] voice recognition software. It was reviewed for major content. However, there may be multiple small discrepancies and errors due to the voice recognition aspects of the software.
--- NOTE | 2024-12-24 13:06 | DSE_ITS ---
Date of service: 12/24/24 Time of Service: 13:06 DS: Diagnosis Discharge Diagnosis (1) Sepsis: Status: Acute (2) Right upper lobe pneumonia: Status: Acute (3) Influenza A: Status: Acute (4) Streptococcal sore throat: Status: Acute (5) Hypomagnesemia: Status: Acute (6) Chronic back pain: Status: Chronic (7) ADHD (attention deficit hyperactivity disorder): Status: Chronic (8) Hypokalemia: Status: Acute (9) On deep vein thrombosis (DVT) prophylaxis: Status: Acute Discharge Plan Disposition Patient Disposition: Home Condition: Improving Discharge Details Reason For Visit: Sepsis, Streptococcus right upper lobe pneumonia,S Admit Date/Time: 12/21/24 19:43 Admit Provider: Bart Cuevas Attending Provider: Bart Cuevas Primary Care Provider: Isabell Manuel Hospital Course Hospital Course: This 34-year-old female patient status post recent with past medical history of chronic back pain with postponed surgery on schedule oxycodone at home, ADHD, was called back to the ED on 12/20/2024 status post positive blood cultures after initial presentation for symptoms of pharyngitis for which the preliminary swabs were negative. The patient mentioned that her son was diagnosed with strep throat last month during the initial visit. The patient returned to the emergency room on 04/09/2020 5 in the afternoon. With further complaints of tiredness, severe pain with body aches with focalization on the right chest with inspiration and right lower abdomen. The patient had been discharged on Keflex and doxycycline that she mentioned that she had been taking but complains of increased tiredness and ongoing diarrhea. The workup in the ED was positive for influenza A. CTA of the chest, abdomen and pelvis was negative for PE but with positive findings of large right upper lobe consolidation, left and right lower lobes small infiltrates, and small right pleural effusion. CBC showed no leukocytosis; chemistry showed a sodium at home 133 and potassium at 3.4, and magnesium at 1.4. Right supplementation was provided. Blood cultures were drawn and pending. The patient was admitted by the hospitalist team to the medical surgical floor for evaluation and management of gram-positive bacteremia, influenza A infection, community acquired pneumonia, hypokalemia and hypomagnesemia. During the stay, the patient was treated with IV azithromycin and ceftriaxone, oseltamivir. Pain management included the patient's scheduled home dosing of oxycodone. In addition multimodal pain management therapy was initiated with scheduled acetaminophen and and NSAIDs. As the patient continued complaint of pain, hydromorphone low-dose was added for breakthrough pain. The patient also mentioned using THC at home and expressed increased anxiety while in the hospital low-dose as needed lorazepam was ordered. The patient c/o of chest pain and workup for ACS was reassuring with a negative EKG for occlusive disease/ischemia and ongoing negative troponins. Repeated blood cultures are negative for 48 hours and the patient remained a- febrile and hemodynamically stable w/o oxygen supplementation . Physical therapy is not recommending further services and there verbalized no safety concerns. Recommendations given to the patient to optimize resting periods. The patient will be discharged home to finish short course of azithromycin and os eltamivir. Cefpodoxime 400 mg oral twice daily to ordered complete the antibiotic therapy for streptococcus pyogenous bacteremia. A short course of Bio-K Plus/probiotics was ordered- to be taken 3 hours apart of any antibiotics. A short course of schedule mucinex, acetaminophen and schedule ibuprofen was ordered; the patient can resume as needed dosing upon completion. The patient will need to follow-up with primary care practitioner within 7 days of discharge. Chronic conditions were treated as per home medicine regimen and patient is to resume her home therapies upon discharge. Patient displayed reluctance to be discharge stating that there is no one at home to take care of her. Patient lives with significant other with presently at home taking care of of their sick children; the significant other is not sick as per report. Discussed with Dr. Roberts Home Meds and New Rx's Prescriptions: New acetaminophen 500 mg Tablet 1,000 mg PO Q6H Qty: 30 0RF cefpodoxime 200 mg Tablet 400 mg PO Q12H Qty: 46 0RF oseltamivir 75 mg Capsule 75 mg PO BID Qty: 8 0RF Bio-K plus 50 billion cell capsule,delayed release(DR/EC) 1 cap PO DAILY Qty: 14 0RF Rx Instructions: Take 3 hours apart from any antibiotics ibuprofen 400 mg tablet 400 mg PO Q8H Qty: 12 0RF Rx Instructions: Take ibuprofen 400 mg oral every 8 hours for 3 days then resume your previous as needed dosing. azithromycin 500 mg tablet 500 mg PO DAILY 3 Days Qty: 3 0RF guaifenesin [Mucus Relief ER] 600 mg Tablet Extended Release 12hr 600 mg PO BID Qty: 10 0RF Continued benzonatate 100 mg capsule 100 mg PO BID-TID PRN (Reason: cough) Qty: 10 0RF Rx Instructions: Take 1 capsule up to 2-3 times daily as needed for cough oxycodone 20 mg tablet 20 mg PO TID Patient Comments: TAKE ONE TABLET BY MOUTH THREE TIMES A DAY dextroamphetamine-amphetamine 20 mg capsule,extended release 24hr 20 mg PO DAILY Patient Comments: TAKE ONE CAPSULE BY MOUTH EVERY DAY FOR ADHD escitalopram oxalate 20 mg tablet 20 mg PO DAILY Patient Comments: TAKE ONE TABLET BY MOUTH EVERY DAY baclofen 10 mg tablet 10 mg PO QID PRN PRN Patient Comments: TAKE ONE TABLET BY MOUTH FOUR TIMES A DAY NEEDED FOR PAIN ibuprofen 600 mg Tablet 600 mg PO Q6H PRN PRNQty: 60 0RF Rx Instructions: only restart after your scheduled dosing is completed on 12/27/2024 Discontinued doxycycline hyclate 100 mg tablet 100 mg PO BID 10 Days Qty: 20 0RF cephalexin 500 mg tablet 500 mg PO BID 10 Days Qty: 20 0RF Discharge Instructions Stand Alone Forms: Nursing Discharge Form Referrals: Isabell Manuel [Primary Care Provider] - (follow-up with primary care practitioner within 7 days of discharge, please) Activity:: Activity as Tolerated Equipment/Supplies:: No Equipment Needed Diet:: As Tolerated Discharge Orders Discharge Orders: Discharge Order (Routine); Ordered 12/24/24 Ordered By: Antonella Siddiqui DS: Summary Time Spent with Patient providing and/or coordinating discharge services: Greater than 30 minutes Status at Discharge Functional status at discharge: independent ambulation Overall status at discharge: patient is progressing back to baseline Mental Status: mental status grossly normal Speech and Movement: speech and movement normal Mood: labile mood Affect: normal affect Quality:SDOH Health Related Social Needs: Health related social needs details none Exam Narrative Exam Narrative: Constitutional The patient observed to be ambulatory without distress in room from outside; no acute distress on exam but became tearful when told that she would be discharged Mentioning that there is no one at home to take care of her; but upon meeting the mother of her significant-significant other is at home taking care of the children at this time. The children are sick but the significant other appears healthy as per report. HENMT: Facial structures with normal appearance Eyes: Well aligned, intact ROM Neck: Normal ROM, no meningeal signs Neuro:alert and oriented to self, person, place, time and situation. No neurological focal deficit Resp: clear lung bilaterally- decreased bases Cardio: regular rhythm, S1, S2, no murmur positive pulses to all ext. GI: Abdomen is not distended, soft and non tender, bowel sounds are present Integumentary: No skin lesions or rash Extremities: strength 5/5 to bilateral lower and upper extremities Psych: RASS 0-1,restless, anxious affect. Psych Mental Status: mental status grossly normal Speech and Movement: speech and movement normal Mood: labile mood Affect: normal affect DS: Data Vitals/I&O Vitals and I&O: Vital Signs Temperature 36.2 C L 12/24/24 08:23 Temperature Source Temporal Artery Scan 12/24/24 08:23 Pulse 88 12/24/24 08:23 Pulse Rhythm Regular 12/21/24 21:29 Pulse 94 H 12/21/24 21:15 Respiratory Rate 16 12/24/24 08:23 Respiratory Effort Normal, Non-Labored 12/21/24 21:29 Respiratory Depth Normal 12/21/24 21:29 Respiratory Pattern Normal 12/21/24 21:29 Blood Pressure 123/73 12/24/24 08:23 Blood Pressure Mean 75 12/21/24 21:15 Blood Pressure Position Sitting 12/21/24 16:41 Pulse Oximetry 100 12/24/24 08:23 Oxygen Delivery Method Room Air 12/24/24 08:23 Oxygen Flow Rate 0 12/24/24 08:23 Pain Level 8 12/24/24 09:08 Comment pt states her lower stomach (right side) is in pain, pt states she is still having full body pains 12/22/24 05:23 Intake & Output 12/23/24 12/24/24 12/24/24 23:59 11:59 23:59 Intake Total 700 / 1170 170 / 170 Balance 700 / 1170 170 / 170 Weight 65.6 kg Intake: IV 260 / 330 50 / 50 Oral 440 / 840 120 / 120 Other: Urine Color Yellow Yellow Urine Appearance Clear Clear Comment pt. voided in toilet. unknown amount in toilet Stool Size Small Stool Characteristics Soft Formed Data Completed and Pending Labs on day of discharge: Labs from last 24 hours 12/24/24 06:10 WBC 7.47 RBC 3.80 L Hgb 11.2 Hct 33.3 L MCV 88 MCH 29.5 MCHC 33.6 RDW 12.8 Plt Count 228 MPV 8.8 Immature Gran % See Differential Neutrophils % 64.0 Band Neutrophils % 2 Lymphocytes % 16.0 Monocytes % 13.0 Eosinophils % 4.0 Basophils % 0.0 Metamyelocytes % 1 Nucleated RBC % 0.0 Absolute Neutrophils 4.93 Absolute Lymphocytes 1.20 Absolute Monocytes 0.97 H Absolute Eosinophils 0.30 Absolute Basophils 0.00 RBC Morphology Normal Sodium 139 Potassium 3.4 L Chloride 105 Carbon Dioxide 29.1 Anion Gap 4.9 BUN 6 L Creatinine 0.5 L Est GFR (CKD-EPI 2020) 124.58 Glucose 92 Calcium 8.1 L Magnesium 1.8 Total Bilirubin 0.31 AST 11 L ALT 17 Alkaline Phosphatase 75 Total Protein 5.8 L Albumin 2.1 L Preliminary micro results at discharge 12/21/24 18:00 Blood Culture - Preliminary Blood NO GROWTH 48 HOURS 12/21/24 17:35 Blood Culture - Preliminary Blood NO GROWTH 48 HOURS PFSH All Active Problems (Updated 12/24/24 @ 13:12 by Antonella Siddiqui APRN) On deep vein thrombosis (DVT) prophylaxis (Acute) Hypokalemia (Acute) Influenza A (Acute) Hypomagnesemia (Acute) Bacteremia (Acute) ADHD (attention deficit hyperactivity disorder) (Chronic) Sepsis (Acute) Right upper lobe pneumonia (Acute) Streptococcal sore throat (Acute) Lactating mother (Acute) care following vaginal delivery (Acute) Depression (Chronic) Anxiety (Chronic) Herniated lumbar intervertebral disc (Acute) L5-S1 Advanced maternal age (AMA) in (Acute) Chronic back pain (Chronic) Medical History 37 weeks gestation of Marijuana smoker Chronic pain Short cervical length during Low lying placenta nos or without hemorrhage, second trimester Surveillance for Depo-Provera contraception Contraception Uses Depo-Provera as primary control method History of delivery Family History Brother Alcohol abuse Mother Substance abuse Alcohol abuse Father Substance abuse Diabetes Stroke Paternal Grandmother Stroke Paternal Aunt No problems noted. Paternal Grandfather Heart disease congestive heart failure Social History Smoking/Tobacco Use Status: Former Tobacco Use Smoking risk assessment performed?: Yes Alcohol Intake: former Drug use: Daily Substance use type: marijuana Details: none Housing: house Current gender identity: female Do you feel safe at home: Yes Do you feel safe in your relationship?: Yes Additional Social history: none Female Reproductive History Menstrual control method: progesterone injection History History 2 Para 2 Hx # Term Pregnancies 1 Multiple births 0 Hx # Pregnancies 1 Ectopic pregnancies 0 AB induced 0 Hx Number of Living Children 2 AB spontaneous 0 Past Pregnancies Del. Date GA/Weeks # Preg Succ Route Wgt Sex Labor Lgth Anesth esia Location [facility] 10/19/16 31 Yes vaginal 2041.166 g Male 5 hours local [facility] 12/25/23 37 No Yes vaginal 3444.467 g Female 5hrs 4min regional [facility] [place] Delivery Date: 10/19/16 Last Updated by: Jeanie Siu CNM PPROM at 31 weeks 5 days, Roberto Carlos freitas Time Spent with Patient Time Spent with Patient: 70-84 minutes4 Time was spent: preparing to see the patient(eg.review tests), obtaining and/or reviewing separately otained hiistory, ordering medications,tests, procedures, referring, communicating with other health child caregiver, indepentently interpreting results, counseling the patient and care coordination
[2024-12-24] MEDS: Lactobacillus Acidophilus CAP 1 CAP PO (13:31)
[2024-12-24] MEDS: Potassium Chloride 20 MEQ TABCR 40 MEQ PO (13:34)
[2024-12-24] MEDS: Ibuprofen 600 MG TAB PO (14:54)
[2024-12-24] MEDS: HYDROmorphone 2 MG TAB 1 MG PO (14:55)
[2025-01-23 09:13] LABS: Noroxycodone-by LC-MS/MS 794 ng/mL (Cutoff: 25); Noroxymorphone-by LC-MS/MS 79 ng/mL (Cutoff: 25); Oxycodone Interpretation Positive.; Oxycodone-by LC-MS/MS 340 ng/mL (Cutoff: 25); Oxymorphone-by LC-MS/MS 93 ng/mL (Cutoff: 25)
== END 2024-12-24 15:34 | disposition home or self-care (01) | DRG 871 ==
LOC: ER 20:44 → MS 21:17
PROVIDERS: Nurse Practitioner Acute Care; Nurse Practitioner Family; Admitting Provider Family Medicine; Emergency Provider Emergency Medicine; PCP Nurse Practitioner Family; Visit Provider Family Medicine
DX: A40.8 Other streptococcal sepsis (principal); J10.00 Influenza due to other identified influenza virus with unspecified type of pneumonia; J02.0 Streptococcal pharyngitis; E83.42 Hypomagnesemia; F90.8 Attention-deficit hyperactivity disorder, other type; E87.6 Hypokalemia; Z79.899 Other long term (current) drug therapy; G89.4 Chronic pain syndrome; Z79.891 Long term (current) use of opiate analgesic; F12.90 Cannabis use, unspecified, uncomplicated; F32.A Depression, unspecified; F41.9 Anxiety disorder, unspecified; M51.27 Other intervertebral disc displacement, lumbosacral region; R07.89 Other chest pain
CPT/HCPCS: 00123; 36415; 71275; 74177; 80048; 80053; 80307; 80365; 84145; 85027; 87040; 87493; 87637; 96365; 96366; 96375; 97161; 99291; J1650; 81003; 83605; 83735; 84484; 84703; 85025; 85610; 93005; 93010; 94640; 94667; 94760; 99223; 99232; 99233; 99239; J0456; J0696; J1171; J1885; J3475; J3480; J3490; J7620

== ENCOUNTER 2025-01-05 11:15 | Outpatient (CLI) | payer MEDICAID, SELFPAY ==
--- NOTE | 2025-01-05 | DI.RAD_ITS ---
Exam(s) XR CHEST 2V PA LATERAL EXAM: XR CHEST 2V PA LATERAL CLINICAL HISTORY: BLOOD IN SPUTUM, R04.2 TECHNIQUE: 2D digital imaging was performed of the chest. Two images were obtained. PA and lateral views were obtained. COMPARISON: CR,XR XR CHEST 2V PA LATERAL from 12/20/[address] CHEST PE ABD PELVIS W from 12/22/2024 FINDINGS: MEDIASTINUM: Normal. HEART: Normal. PULMONARY VASCULATURE: Normal. LUNGS: There has been interval decrease in size of the opacities seen in the posterior aspect of the right upper lobe. There has however been interval development of a small to moderate-sized right ple ural effusion. The left lung is clear. PLEURAL SPACE: No left pleural effusion. No pneumothorax. BONE:Within normal limits for the patient's age. OTHER FINDINGS:Normal. IMPRESSION: 1. Interval decrease in size of the right upper lobe opacity/infiltrate. 2. Interval development of a moderate size right pleural effusion. DATA REPOSITORY: RADIATION DOSE DELIVERED:
== END 2025-01-05 11:35 ==
LOC: DI 11:17
PROVIDERS: PCP Nurse Practitioner Family; Visit Provider Nurse Practitioner Family
DX: R91.8 Other nonspecific abnormal finding of lung field (principal); R04.2 Hemoptysis
CPT/HCPCS: 71046

== ENCOUNTER 2025-01-25 22:17 | Emergency (ER) | payer MEDICAID, SELFPAY ==
[2025-01-25 22:21] VITALS: BP 162/63; PULSE 67; RESP 27; TEMP 36.5; O2SAT 97
[2025-01-25 22:24] VITALS: BP 162/63; PULSE 87; RESP 25; TEMP 36.6; O2SAT 97
--- NOTE | 2025-01-25 22:38 | W.ED.GENAD ---
Discharge Plan Disposition Patient Disposition: Home Condition: Good Discharge Details Clinical Impression: Vomiting Primary Care Provider: Isabell Manuel ED Provider: Will Angeles Home Meds and New Rx's Prescriptions: New docusate sodium [Colace] 100 mg capsule 100 mg PO BID Qty: 60 0RF No Action benzonatate 100 mg capsule 100 mg PO BID-TID PRN (Reason: cough) Qty: 10 0RF Rx Instructions: Take 1 capsule up to 2-3 times daily as needed for cough oxycodone 20 mg tablet 20 mg PO TID Patient Comments: TAKE ONE TABLET BY MOUTH THREE TIMES A DAY dextroamphetamine-amphetamine 20 mg capsule,extended release 24hr 20 mg PO DAILY Patient Comments: TAKE ONE CAPSULE BY MOUTH EVERY DAY FOR ADHD escitalopram oxalate 20 mg tablet 20 mg PO DAILY Patient Comments: TAKE ONE TABLET BY MOUTH EVERY DAY baclofen 10 mg tablet 10 mg PO QID PRN PRN Patient Comments: TAKE ONE TABLET BY MOUTH FOUR TIMES A DAY NEEDED FOR PAIN acetaminophen 500 mg Tablet 1,000 mg PO Q6H Qty: 30 0RF oseltamivir 75 mg Capsule 75 mg PO BID Qty: 8 0RF Bio-K plus 50 billion cell capsule,delayed release(DR/EC) 1 cap PO DAILY Qty: 14 0RF Rx Instructions: Take 3 hours apart from any antibiotics ibuprofen 400 mg tablet 400 mg PO Q8H Qty: 12 0RF Rx Instructions: Take ibuprofen 400 mg oral every 8 hours for 3 days then resume your previous as needed dosing. guaifenesin [Mucus Relief ER] 600 mg Tablet Extended Release 12hr 600 mg PO BID Qty: 10 0RF ibuprofen 600 mg Tablet 600 mg PO Q6H PRN PRNQty: 60 0RF Rx Instructions: only restart after your scheduled dosing is completed on 12/27/2024 Discharge Instructions Instructions: Nausea and Vomiting, Adult ED Additional Instructions: At this time your workup has returned, you have been rehydrated with IV fluids and your vomiting has stopped. Your CAT scan shows no evidence of appendicitis. You do have notable constipation. For your constipation, please take the Colace as prescribed. It is been sent to your pharmacy on file. You still do have a small fluid collection in your lungs, this is in the location where your previous pneumonia was. Please follow-up with your family doctor within the next month to have a repeat imaging performed to make sure that this is improving. If you notice any worsening of your symptoms, or any new symptoms such as vomiting, diarrhea, fever, chills, shortness of breath, chest pain, numbness, weakness, or fainting , please return immediately to the emergency department for reevaluation. Please follow up with your primary care provider as soon as possible for reassessment and reevaluation. As always, it was a pleasure participating in your medical care today. Referrals: Isabell Manuel [Primary Care Provider] - [facility] General Date/Time Provider Initiated Documentation: 01/25/25 22:19. HPI Narrative: 34-year-old female with past medical history of anxiety, depression, previous pneumonia, marijuana use, who presents today for evaluation of nausea and vomiting diarrhea. Is been present for the last 12 hours. History is notably limited from the patient, as she only nods for yes and no answers, and quietly answers some questions with just a few words. But between what the patient states and what her grandmother states, it appears that symptoms began about 12 hours ago, she has had multiple episodes of vomiting and diarrhea. She has generalized abdominal achiness and some mild umbilical pain. She denies any hematemesis or hematochezia. She denies any other complaints. No other sick contacts at home. Related Data Home Medications ?Medication ?Instructions ?Recorded ?Confirmed benzonatate 100 mg capsule 100 mg PO BID-TID PRN cough #10 12/20/24 01/25/25 caps oxycodone 20 mg tablet 20 mg PO TID 12/21/24 01/25/25 baclofen 10 mg tablet 10 mg PO QID PRN PRN 12/22/24 01/25/25 dextroamphetamine-amphetamine ER 20 mg PO DAILY 12/22/24 01/25/25 20 mg 24hr capsule,extend release escitalopram oxalate 20 mg tablet 20 mg PO DAILY 12/22/24 01/25/25 L. acidophilus,casei,rhamnosus 50 1 cap PO DAILY #14 caps 12/24/24 01/25/25 billion cell capsule,delayed release (Bio-K plus) acetaminophen 500 mg tablet 1,000 mg (2 x 500 mg) PO Q6H #30 12/24/24 01/25/25 tabs guaifenesin 600 mg tablet, 600 mg PO BID #10 tabs 12/24/24 01/25/25 extended release 12 hr (Mucus Relief ER) ibuprofen 400 mg tablet 400 mg PO Q8H #12 tabs 12/24/24 01/25/25 ibuprofen 600 mg tablet 600 mg PO Q6H PRN PRN #60 tabs 12/24/24 01/25/25 oseltamivir 75 mg capsule 75 mg PO BID #8 caps 12/24/24 01/25/25 docusate sodium 100 mg capsule 100 mg PO BID #60 caps 01/26/25 (Colace) Previous Rx's ?Medication ?Instructions ?Recorded benzonatate 100 mg capsule 100 mg PO BID-TID PRN cough #10 12/20/24 caps L. acidophilus,casei,rhamnosus 50 1 cap PO DAILY #14 caps 12/24/24 billion cell capsule,delayed release (Bio-K plus) acetaminophen 500 mg tablet 1,000 mg (2 x 500 mg) PO Q6H #30 12/24/24 tabs guaifenesin 600 mg tablet, 600 mg PO BID #10 tabs 12/24/24 extended release 12 hr (Mucus Relief ER) ibuprofen 400 mg tablet 400 mg PO Q8H #12 tabs 12/24/24 ibuprofen 600 mg tablet 600 mg PO Q6H PRN PRN #60 tabs 12/24/24 oseltamivir 75 mg capsule 75 mg PO BID #8 caps 12/24/24 docusate sodium 100 mg capsule 100 mg PO BID #60 caps 01/26/25 (Colace) Allergies Allergy/AdvReac Type Severity Reaction Status Date / Time amoxicillin Allergy Intermediate Skin Rash Verified 01/25/25 22:27 Penicillins Allergy Intermediate rash with Verified 01/25/25 22:27 amoxicillin General Stated Complaint: Abd Prob CATARINO: 3 Exam Narrative Exam Narrative: 1.Const: Well-nourished, Well-developed, appearing stated age 2.Eyes: PERRL, no conjunctival injection, and symmetrical lids. 3.ENT: Atraumatic external nose and ears. Dry MM. Neck: Symmetric, trachea midline, No thyromegaly. 4.CVS: +S1/S2, Peripheral pulses 2+ and equal in all extremities. Brisk capillary refill in all extremities. 5.RESP: Unlabored respiratory effort. Clear to auscultation bilaterally. No wheezes rales or rhonchi 6.GI: Soft, Nontender/Nondistended, No hepatosplenomegaly. No guarding or rebound. 7.MSK: Normocephalic/Atraumatic, Extremities w/o deformity or ttp No cyanosis or clubbing, Normal movement of all extremities 8.Skin: Warm, Dry. No rashes or lesions. 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 Sensation grossly intact, no focal neurologic deficits. 10.Psych: (AAO) x3. Appropriate mood and affect Course Vital Signs Vital signs: Vital Signs Temperature 36.5 C 01/25/25 22:21 Pulse 67 01/25/25 22:21 Respiratory Rate 27 H 01/25/25 22:21 Blood Pressure 162/63 H 01/25/25 22:21 Pulse Oximetry 97 01/25/25 22:21 Temperature 36.6 C 01/25/25 22:24 Temperature Source Temporal Artery Scan 01/25/25 22:24 Pulse 87 01/25/25 22:24 Respiratory Rate 25 H 01/25/25 22:24 Blood Pressure 162/63 H 01/25/25 22:24 Blood Pressure Position Supine 01/25/25 22:24 Pulse Oximetry 97 01/25/25 22:24 Oxygen Delivery Method Room Air 01/25/25 22:24 Oxygen Flow Rate 0 01/25/25 22:21 Pain Level 10 01/25/25 22:24 Medical Decision Making 34-year-old female with past medical history of anxiety, depression, previous pneumonia, marijuana use, who presents today for evaluation of nausea and vomiting diarrhea. Is been present for the last 12 hours. History is notably limited from the patient, as she only nods for yes and no answers, and quietly answers some questions with just a few words. But between what the patient states and what her grandmother states, it appears that symptoms began about 12 hours ago, she has had multiple episodes of vomiting and diarrhea. She has generalized abdominal achiness and some mild umbilical pain. She denies any hematemesis or hematochezia. She denies any other complaints. No other sick contacts at home. Exam demonstrates dry mucous membranes. No pain on palpation of the abdomen. No pain at McBurney's point, negative Aquino sign. Symptoms appear notably clinically inconsistent with acute appendicitis, diverticulitis, cholecystitis, volvulus or obstruction. Concern is high for cyclic vomiting syndrome, or gastroenteritis from a viral etiology. Will rehydrate with a liter of LR, give droperidol 2.5 mg, check for electrolyte abnormalities, monitor closely and reassess. No indication for emergent CT imaging at this time. 2:28 AM Laboratory workup has returned, no white count or bandemia. Electrolytes normal, renal function normal. Magnesium was slightly low though at 1.3, she is given 2 g of IV mag. She tolerated this well. Lipase normal. Urinalysis shows ketones but no evidence of urinary tract infection. Anion gap is relatively benign at 11.8. Glucose stable at 164. Symptoms inconsistent with DKA. After droperidol and fluids patient is feeling much better. She tolerated p.o., and her abdominal pain has resolved. Repeat exam shows no evidence of an acute surgical abdomen. CT imaging was performed, and patient does have some atelectasis which likely represents the residual/resolving pneumonia. There is also a mild fluid collection in the right pleural space present where her previous effusion was. With no fever or chills or elevated white count I do not think that this represents active infection. I did discuss with the grandmother and patient importance of repeat imaging in the next month to make sure that this is resolving. Additionally patient does demonstrate notable constipation. Will give her prescription for Colace for home use. There is some pelvic congestion syndrome present, and enteritis. No acute process otherwise. With the patient's good tolerance of p.o., her stable abdominal exam, and stable labs, I do feel discharge is appropriate at this time with no indication at this time for surgical intervention or inpatient management. Will give a bottle of Zofran for home use. Discussed red flags for which to return. I have extensively reviewed the treatment plan and discharge instructions with the patient and their family. I have addressed all patient concerns at this time. The patient and family was made aware of what symptoms to monitor for that would warrant a return to the emergency department. Discussed the plan with the patient and family, they demonstrate verbal understanding and agreement with our assessment and plan at this time. The documentation in this chart was dictated using [employer] dictation software. Please excuse any dictation errors. FINDINGS: Lungs: Patchy atelectatic changes and scarring within the right lower lobe of the lung likely represents residual inflammatory or infectious process/pneumonia. Pleural spaces: Thick walled fluid collection within the right pleural space may represent a small empyema measuring measures 1.9 x 7 cm. Liver: There are no focal liver lesions present. There is no evidence of intrahepatic or extrahepatic biliary ductal dilation. The liver is enlarged measuring 19 cm. Gallbladder and biliary ducts: The gallbladder is normal. There is no cholelitiasis, wall thickening or pericholecystic fluid to suggest cholecystitis. Pancreas: The pancreas is normal. Spleen: The spleen is normal. Adrenal glands: The adrenal glands are normal without evidence of mass or enlargement. Kidneys and ureters: The kidneys are normal no evidence of nephrolithiasis or hydronephrosis. The ureters are normal caliber and follow a normal caliber and course Stomach and bowel: There are fluid-filled loops of small bowel with air-fluid levels. There is bowel wall thickening and inflammatory changes. No evidence of obstruction. Findings are consistent with acute enteritis. There is moderate to severe increased colonic fecal content. The colon is moderately distended. These findings suggest a moderate to severe degree of constipation. Clinical correlation recommended. Appendix: A normal appendix is identified. There is no evidence of distention or periappendiceal inflammation to suggest appendicitis. Intraperitoneal space: No free air. No significant fluid collection. Vasculature: There is a prominent left ovarian vein with large pelvic venous collaterals present. The findings are consistent with pelvic congestion physiology. Clinical correlation as to presence of pelvic congestion syndrome recommended. The aorta is unremarkable without evidence of significant atherosclerosis or aneurysmal disease. The peripheral arterial vascular system visualized is unremarkable. The portal venous system visualized is unremarkable. The peripheral venous vascular system visualized is unremarkable. Lymph nodes: No enlarged lymph nodes. Urinary bladder: There is nonspecific bladder wall thickening. This is likely related to incomplete bladder filling. Reproductive: The uterus is normal. Bones/joints: The skeletal structures and soft tissues show no evidence of fracture or other acute processes. Soft tissues: The extra-abdominal soft tissues are normal. IMPRESSION: 1. Patchy atelectatic changes and scarring within the right lower lobe of the lung likely represents residual inflammatory or infectious process/pneumonia. 2. Thick walled fluid collection within the right pleural space may represent a small empyema measuring measures 1.9 x 7 cm. 3. There is moderate to severe increased colonic fecal content. The colon is moderately distended. These findings suggest a moderate to severe degree of constipation. Clinical correlation recommended. 4. No evidence of appendicitis. 5. There is a prominent left ovarian vein with large pelvic venous collaterals present. The findings are consistent with pelvic congestion physiology. Clinical correlation as to presence of pelvic congestion syndrome recommended. 6. Findings are consistent with acute enteritis. Thank you for allowing us to participate in the care of your patient Quality:SDOH Health Related Social Needs: Health related social needs details none PFSH All Active Problems (Updated 01/26/25 @ 02:27 by Will Angeles DO) Vomiting (Acute) Influenza A (Acute) Bacteremia (Acute) ADHD (attention deficit hyperactivity disorder) (Chronic) Right upper lobe pneumonia (Acute) Streptococcal sore throat (Acute) Lactating mother (Acute) care following vaginal delivery (Acute) Depression (Chronic) Anxiety (Chronic) Herniated lumbar intervertebral disc (Acute) L5-S1 Advanced maternal age (AMA) in (Acute) Chronic back pain (Chronic) Medical History 37 weeks gestation of Marijuana smoker Chronic pain Short cervical length during Low lying placenta nos or without hemorrhage, second trimester Surveillance for Depo-Provera contraception Contraception Uses Depo-Provera as primary control method History of delivery Family History Brother Alcohol abuse Mother Substance abuse Alcohol abuse Father Substance abuse Diabetes Stroke Paternal Grandmother Stroke Paternal Aunt No problems noted. Paternal Grandfather Heart disease congestive heart failure Social History Smoking/Tobacco Use Status: Former Tobacco Use Smoking risk assessment performed?: Yes Alcohol Intake: former Drug use: Daily Substance use type: marijuana Housing: house Current gender identity: female Do you feel safe at home: Yes Do you feel safe in your relationship?: Yes Additional Social history: none Female Reproductive History Menstrual control method: progesterone injection History History 2 Para 2 Hx # Term Pregnancies 1 Multiple births 0 Hx # Pregnancies 1 Ectopic pregnancies 0 AB induced 0 Hx Number of Living Children 2 AB spontaneous 0 Past Pregnancies Del. Date GA/Weeks # Preg Succ Route Wgt Sex Labor Lgth Anesthesia Location [facility] [place] 10/19/16 31 Yes vaginal 2041.166 g Male 5 hours [place] [facility] [place]/25/23 37 No Yes vaginal 3444.467 g Female 5hrs 4min regional [facility] Delivery Date: 10/19/16 Last Updated by: Jeanie Siu CNM PPROM at 31 weeks 5 days, Roberto Carlos freitas
[2025-01-25] MEDS: Lactated Ringers 1,000 ML 1000 ML IV (22:43)
[2025-01-25 22:45] LABS: Abs Immature Grans 0.04 10^3/uL (0.0-0.06); Absolute Basophil Count 0.03 10^3/uL (0.0-0.2); Absolute Eosinophil Count 0.01 10^3/uL (0.0-0.7); Absolute Lymphocyte Count 0.91 10^3/uL (1.2-3.4); Absolute Monocyte Count 0.15 10^3/uL (0.1-0.8); Absolute Neutrophil Count 9.36 10^3/uL (1.2-6.7); Basophils % 0.3 %; Eosinophils % 0.1 %; HCT 36.1 % (36.0-46.0); HGB 11.8 g/dL (11.2-15.7); Immature Grans % 0.4 %; Lymphocytes % 8.7 %; MCH 28.6 pg (27.0-33.0); MCHC 32.7 % (32.0-36.0); MCV 87 fL (80-95); Monocytes % 1.4 %; Neutrophils % 89.1 %; Platelet Count 330 10^3/uL (130-400); RBC 4.13 10^6/uL (3.93-5.22); RDW-SD 41.9 fL
[2025-01-25 22:55] LABS: Magnesium 1.3 mg/dL (1.8-2.4)
[2025-01-25 23:01] LABS: ALT 20 U/L (14-59); AST 16 U/L (15-37); Albumin 3.3 g/dL (3.4-5.0); Alkaline Phosphatase 86 U/L (46-116); Anion Gap 11.8 mmol/L (3-11); BUN 13 mg/dL (7-18); Bilirubin, Total 0.4 mg/dL (0.2-1.0); CO2 26.2 mmol/L (21.0-32.0); CREATININE 0.7 mg/dL (0.55-1.02); Calcium 9.3 mg/dL (8.5-10.1); Chloride 100 mmol/L (98-107); Estimated GFR 114.88 (mL/min/1.73m2); Glucose 164 mg/dL (74-106); Lipase 31 U/L (<78); Potassium 3.5 mmol/L (3.5-5.1); Sodium 138 mmol/L (136-145); Total Protein 7.7 g/dL (6.4-8.2)
[2025-01-25] MEDS: Ketorolac 15 MG/ML VIAL IVP (23:45)
[2025-01-25] MEDS: MAGNESIUM SULFATE 2 GM/50 ML BAG IV_INF (23:46)
[2025-01-26] MEDS: Omnipaque 350 MG/ML 100 ML BTL 75 ML IJ (01:31)
[2025-01-26] MEDS: Normal Saline - Diluent 50 ML VIAL IJ (01:32)
--- NOTE | 2025-01-26 01:32 | DI.CT_ITS ---
Exam(s) CT ABDOMEN PELVIS W EXAM: CT ABDOMEN PELVIS W CLINICAL HISTORY: umbilical pain, vomiting, eval for appe TECHNIQUE: Imaging Protocol: Axial computed tomography images with coronal and sagittal reformatted images were created and reviewed. CONTRAST MATERIAL: Intravenous: Omnipaque 350 Contrast volume:75 mL Oral: No COMPARISON: CT CT CHEST PE ABD PELVIS W from 12/22/2024 FINDINGS: ABDOMEN: Lung Bases: There is a right pleural effusion which appears in capsulated. It measures 6.8 cm x 2 cm . There is subjacent infiltrate. The pleural effusion has decreased in size compared to the examina tion from 12/22/2024. Liver: Normal density. No measurable mass. The liver is enlarged measuring 21 cm long. Portal, Superior Mesenteric, and Splenic Veins: Unremarkable. Gallbladder and Biliary Tract: No radiodense calculus or dilation. Pancreas: Normal density, no abnormal calcifications or inflammatory process. Spleen: Normal. Adrenals: No masses seen. Kidneys: Normal size, contour and axis. No radiodense stones or obstructive uropathy. No masses seen. Abdominal Aorta: Abdominal portion non-dilated. Bowel: No obstruction or bowel wall thickening. No definite evidence of an appendicitis is seen. The re are fluid-filled loops of small bowel which can be seen with an enteritis or diarrheal illness. Peritoneal Cavity: No ascites, collection or mesenteric inflammatory response. No free air. Lymph Nodes: Within normal limits. Bones: Within normal limits for the patient's age. Soft Tissues: Unremarkable. PELVIS: Bladder: The urinary bladder is incompletely distended limiting evaluation. Reproductive Organs: There are prominent para uterine vessels which raises a question of pelvic conge stion syndrome. Lymph Nodes: Within normal limits. Bones: Within normal limits for the patient's age. IMPRESSION: 1. No CT evidence of an acute appendicitis. 2. Interval decrease in size of the right basilar infiltrate. 3. There is also decrease in size of the right pleural effusion which now appears to be in capsulated . The findings are suspicious for an empyema. 4. Fluid-filled loops of small bowel which can be seen with an enteritis or diarrheal illness. Pleas e correlate clinically. 5. Prominent periuterine vessels which can be seen with pelvic congestion syndrome. Please correlate clinically. RADIATION DOSE DELIVERED: 390.75mGy.cm Total DLP DATA REPOSITORY: All CT scans at this facility are submitted to the National Radiology Data Registry (NRDR) Dose Index Registry (DIR) with the [employer] (ACR). RADIATION OPTIMIZATION: All CT scans at this facility use at least one of these dose optimization te chniques: automated exposure control; mA and/or kV adjustment per patient size (includes targeted exa ms where dose is matched to clinical indication); or iterative reconstruction.
[2025-01-26 01:36] LABS: Bilirubin Negative (Negative); Blood Negative (Negative); Clarity Clear (Clear); Glucose Negative (Negative); Ketones 40 mg/dL (Negative); Leukocyte Esterase Negative (Negative); Nitrite Negative (Negative); Urobilinogen 0.2 mg/dL (Up to 0.2); pH 8.5 (5-8)
[2025-01-26 01:41] LABS: Bacteria Few HPF (Negative); C & S Indicated? No; Casts Negative LPF (Negative); Crystals Negative HPF (Negative); Epithelial Cells Few HPF (Negative); Mucus Moderate (Negative); RBC 0-2 HPF (0-2)
[2025-01-26 01:47] LABS: *AMPHETAMINES SCREEN URINE Negative (Negative); *BARBITURATES SCREEN URINE Negative (Negative); *BENZODIAZEPINES SCREEN URINE Negative (Negative); Cannabinoids THC Positive (Negative); Cocaine Screen,Urine Negative (Negative); METHADONE URINE SCREEN Negative (Negative); OPIATES URINE SCREEN Positive (Negative)
[2025-01-26 01:48] LABS: Tricyclic Antidepressants Negative (Negative)
[2025-01-26] MEDS: Normal Saline 1,000 ML 1000 ML IV (01:52)
--- NOTE | 2025-01-26 02:09 | DI.VRAD_ITS ---
PROCEDURE INFORMATION: Exam: CT Abdomen And Pelvis With Contrast Exam date and time: 01/26/2025 1:20 AM Age: 34 years old Clinical indication: Abdominal pain; Umbilical pain, vomiting, eval for appe TECHNIQUE: Imaging protocol: Computed tomography of the abdomen and pelvis with contrast. Radiation optimization: All CT scans at this facility use at least one of these dose optimization techniques: automated exposure control; mA and/or kV adjustment per patient size (includes targeted exams where dose is matched to clinical indication); or iterative reconstruction. Contrast material: [id number]; Contrast volume: 75 ml; Contrast route: INTRAVENOUS (IV); COMPARISON: CT CHEST PE ABD PELVIS W 12/22/2024 8:29 AM FINDINGS: Lungs: Patchy atelectatic changes and scarring within the right lower lobe of the lung likely represents residual inflammatory or infectious process/pneumonia. Pleural spaces: Thick walled fluid collection within the right pleural space may represent a small empyema measuring measures 1.9 x 7 cm. Liver: There are no focal liver lesions present. There is no evidence of intrahepatic or extrahepatic biliary ductal dilation. The liver is enlarged measuring 19 cm. Gallbladder and biliary ducts: The gallbladder is normal. There is no cholelitiasis, wall thickening or pericholecystic fluid to suggest cholecystitis. Pancreas: The pancreas is normal. Spleen: The spleen is normal. Adrenal glands: The adrenal glands are normal without evidence of mass or enlargement. Kidneys and ureters: The kidneys are normal no evidence of nephrolithiasis or hydronephrosis. The ureters are normal caliber and follow a normal caliber and course. Stomach and bowel: There are fluid-filled loops of small bowel with air-fluid levels. There is bowel wall thickening and inflammatory changes. No evidence of obstruction. Findings are consistent with acute enteritis. There is moderate to severe increased colonic fecal content. The colon is moderately distended. These findings suggest a moderate to severe degree of constipation. Clinical correlation recommended. Appendix: A normal appendix is identified. There is no evidence of distention or periappendiceal inflammation to suggest appendicitis. Intraperitoneal space: No free air. No significant fluid collection. Vasculature: There is a prominent left ovarian vein with large pelvic venous collaterals present. The findings are consistent with pelvic congestion physiology. Clinical correlation as to presence of pelvic congestion syndrome recommended. The aorta is unremarkable without evidence of significant atherosclerosis or aneurysmal disease. The peripheral arterial vascular system visualized is unremarkable. The portal venous system visualized is unremarkable. The peripheral venous vascular system visualized is unremarkable. Lymph nodes: No enlarged lymph nodes. Urinary bladder: There is nonspecific bladder wall thickening. This is likely related to incomplete bladder filling. Reproductive: The uterus is normal. Bones/joints: The skeletal structures and soft tissues show no evidence of fracture or other acute processes. Soft tissues: The extra-abdominal soft tissues are normal. IMPRESSION: 1. Patchy atelectatic changes and scarring within the right lower lobe of the lung likely represents residual inflammatory or infectious process/pneumonia. 2. Thick walled fluid collection within the right pleural space may represent a small empyema measuring measures 1.9 x 7 cm. 3. There is moderate to severe increased colonic fecal content. The colon is moderately distended. These findings suggest a moderate to severe degree of constipation. Clinical correlation recommended. 4. No evidence of appendicitis. 5. There is a prominent left ovarian vein with large pelvic venous collaterals present. The findings are consistent with pelvic congestion physiology. Clinical correlation as to presence of pelvic congestion syndrome recommended. 6. Findings are consistent with acute enteritis. Dictated and Authenticated by: Luigi Fuentes MD. Orderin Karthik Solis MD
[2025-01-26] MEDS: Ondansetron O.D.T. 4 MG TABEF, 3 TABS/BTL PO (02:28)
[2025-01-26 02:40] VITALS: BP 123/99; PULSE 72; RESP 16; TEMP 37.2; O2SAT 98
== END 2025-01-26 02:41 | disposition home or self-care (01) ==
PROVIDERS: Emergency Provider Student in an Organized Health Care Education/Training Program; PCP Nurse Practitioner Family
DX: R11.2 Nausea with vomiting, unspecified (principal); R19.7 Diarrhea, unspecified; R10.33 Periumbilical pain
CPT/HCPCS: 80053; 80307; 81025; 83690; 96361; 96365; 96375; 99285; 74177; 81003; 81015; 83735; 85025; 99284; J1790; J1885; J3475; J3490